=== PATIENT | male | born 1955 | race American Indian/Alaskan Native ===

== ENCOUNTER 2017-08-02 20:39 | Inpatient (IN) | payer OTHER ==
[2017-08-02] MEDS ORDERED: CATAPRES PO ONE (21:31)
--- NOTE | 2017-08-02 21:35 | Emergency Department Report ---
ED General Adult HPI - General Chief complaint: Nausea/Vomiting/Diarrhea Stated complaint: GENERAL WEAKNESS Time Seen by Provider: 08/02/17 20:53 Source: patient, EMS Mode of arrival: Stretcher Limitations: No Limitations - History of Present Illness Initial comments: 61-year-old male with a past medical history CHF, chronic venous stasis ulcers, and hypertension presents to the hospital for unknown reason. Patient is a very poor historian. Stating he does not know why he is here stating that someone from the home he stays in (?senior living). Patient states that all he knows is that he has high blood pressure and everything else should be in his record here. Patient does not have any previous medical record presents with discharge paperwork from [facility] dated 06-29 to 07-02 admitted with diagnosis of cellulitis, venous stasis ulcer,and systolic heart failure. Patient denies any physical complaints at this time. He is alert and oriented 3. I called the number on the pt's envelope at [phone] and this was the beamster of the senior living and states that he called ems. At first he was frustrated that I could not get all the information from EMS but then I explained that normally the patient can fill in the blanks as to why he is here that this patient cannot. Then he was able to say that the patient has been in a senior living for 3 weeks. Not eating for the last days and had an episode of vomiting. He is short of breath with irregular breathing with increased work of breathing while climbing stairs and today he has several episodes of loose stools. Pt goes to [facility] once a week for dressing changes - Related Data Allergies Allergy/AdvReac Type Severity Reaction Status Date / Time No Known Allergies Allergy Verified 08/02/17 22:50 ED Review of Systems ROS: Stated complaint: GENERAL WEAKNESS Other details as noted in HPI Comment: All other systems reviewed and negative ED Past Medical Hx - Past Medical History Hx Hypertension: Yes Hx Congestive Heart Failure: Yes (systolic ) Additional medical history: hx of b/l leg cellulitis, b/l chronic venous stasis ulcers - Social History Smoking Status: Never Smoker Substance Use Type: None ED Physical Exam - General Limitations: No Limitations - Other Other exam information: General: No limitations, patient is alert in no acute distress Head exam: Atraumatic, normocephalic Eyes exam: , pupils equal reactive to light ENT: Moist mucous membrane, normal oropharynx Neck exam: Normal inspection, full range of motion, no meningismus nontender Respiratory exam: mild crackles with diminished breath sounds right base Cardiovascular: Normal rate and rhythm, normal heart sounds Abdomen: Soft, nondistended, and nontender, with normal bowel sounds, no rebound, or guarding Extremity: Full range of motion, b/l lower extremity dressings Back: Normal Inspection, full range of motion, no tenderness Neurologic: Alert, oriented x3, cranial nerves intact, no motor or sensory deficit Psychiatric: normal affect, normal mood ED Course Vital Signs 08/02/17 08/02/17 21:10 22:04 Pulse Rate 96 H 90 Respiratory 28 H Rate Blood Pressure 176/120 170/120 O2 Sat by Pulse 95 Oximetry ED Medical Decision Making - Lab Data Result diagrams: 08/02/17 21:19 08/02/17 21:19 Lab Results 08/02/17 08/02/17 08/02/17 Range/Units 21:19 21:19 21:19 WBC 7.0 (4.5-11.0) K/mm3 RBC 4.49 (3.65-5.03) M/mm3 Hgb 12.5 (11.8-15.2) gm/dl Hct 40.1 (35.5-45.6) % MCV 89 (84-94) fl MCH 28 (28-32) pg MCHC 31 L (32-34) % RDW 22.2 H (13.2-15.2) % Plt Count 112 L (140-440) K/mm3 Lymph % (Auto) 12.3 L (13.4-35.0) % [place] % (Auto) 11.7 H (0.0-7.3) % Eos % (Auto) 0.3 (0.0-4.3) % Baso % (Auto) 0.3 (0.0-1.8) % Lymph # 0.9 L (1.2-5.4) K/mm3 [place] # 0.8 (0.0-0.8) K/mm3 Eos # 0.0 (0.0-0.4) K/mm3 Baso # 0.0 (0.0-0.1) K/mm3 Seg Neutrophils % 75.4 H (40.0-70.0) % Seg Neutrophils # 5.3 (1.8-7.7) K/mm3 PT (12.2-14.9) Sec. INR (0.87-1.13) Sodium 138 (137-145) mmol/L Potassium 4.5 (3.6-5.0) mmol/L Chloride 101.6 (98-107) mmol/L Carbon Dioxide 17 L (22-30) mmol/L Anion Gap 24 mmol/L BUN 59 H (9-20) mg/dL Creatinine 1.9 H (0.8-1.5) mg/dL Estimated GFR 44 ml/min BUN/Creatinine Ratio 31 % Glucose 94 (75-100) mg/dL Calcium 8.4 (8.4-10.2) mg/dL Total Bilirubin 3.40 H (0.1-1.2) mg/dL AST 92 H (5-40) units/L ALT 108 H (7-56) units/L Alkaline Phosphatase 648 H (35-129) units/L Total Creatine Kinase 132 (55-170) units/L CK-MB (CK-2) 3.0 (0.0-4.0) ng/mL CK-MB (CK-2) Rel Index 2.2 (0-4) Troponin T 0.025 (0.00-0.029) ng/mL NT-Pro-B Natriuret Pep 91111 H (0-900) pg/mL Total Protein 6.8 (6.3-8.2) g/dL Albumin 3.3 L (3.9-5) g/dL Albumin/Globulin Ratio 0.9 % 08/02/ Range/Units 21:19 WBC (4.5-11.0) K/mm3 RBC (3.65-5.03) M/mm3 Hgb (11.8-15.2) gm/dl Hct (35.5-45.6) % MCV (84-94) fl MCH (28-32) pg MCHC (32-34) % RDW (13.2-15.2) % Plt Count (140-440) K/mm3 Lymph % (Auto) (13.4-35.0) % [place] % (Auto) (0.0-7.3) % Eos % (Auto) (0.0-4.3) % Baso % (Auto) (0.0-1.8) % Lymph # (1.2-5.4) K/mm3 [place] # (0.0-0.8) K/mm3 Eos # (0.0-0.4) K/mm3 Baso # (0.0-0.1) K/mm3 Seg Neutrophils % (40.0-70.0) % Seg Neutrophils # (1.8-7.7) K/mm3 PT 29.7 H (12.2-14.9) Sec. INR 2.61 H (0.87-1.13) Sodium (137-145) mmol/L Potassium (3.6-5.0) mmol/L Chloride (98-107) mmol/L Carbon Dioxide (22-30) mmol/L Anion Gap mmol/L BUN (9-20) mg/dL Creatinine (0.8-1.5) mg/dL Estimated GFR ml/min BUN/Creatinine Ratio % Glucose (75-100) mg/dL Calcium (8.4-10.2) mg/dL Total Bilirubin (0.1-1.2) mg/dL AST (5-40) units/L ALT (7-56) units/L Alkaline Phosphatase (35-129) units/L Total Creatine Kinase (55-170) units/L CK-MB (CK-2) (0.0-4.0) ng/mL CK-MB (CK-2) Rel Index (0-4) Troponin T (0.00-0.029) ng/mL NT-Pro-B Natriuret Pep (0-900) pg/mL Total Protein (6.3-8.2) g/dL Albumin (3.9-5) g/dL Albumin/Globulin Ratio % - EKG Data -: EKG Interpreted by Me (atrial prmature complex, anteroseptal infarct, ) EKG shows normal: sinus rhythm Rate: normal - Radiology Data Radiology results: report reviewed EXAM: XR CHEST 1V AP HISTORY: sob TECHNIQUE: Chest portable upright PRIORS: None. FINDINGS: There is focal area of increased density within the right lower lobe along with blunting of the costophrenic angle suspicious for infiltrate. Cardiac and mediastinal contours are within normal limits for technique. Pulmonary vasculature is unremarkable. No left effusion identified. IMPRESSION: Right lower lobe infiltrate with small effusion suspect pneumonia. Recommend continued followup to document resolution - Medical Decision Making Patient has dyspnea on exertion as reported by senior living Right lower lobe infiltrate versus fluid identified Blood cultures ordered. Patient recovered with Rocephin and azithromycin Elevated BNP noted as well as elevated BUN and creatinine. Previous unavailable for comparison Labs suggestive of the liver disease with coagulopathy. I do not have a accurate med list for the patient at this time to confirm whether or not he is on anticoagulants. Pt has multiple medical problems and cannot provide any reliable history and typically goes to [facility] for his treatment. Patient will be admitted to the hospital for further treatment and evaluation. clonidine was given for elevated bp - Differential Diagnosis CHF, enteritis, dehydration, Critical Care Time: No Critical care attestation.: If time is entered above; I have spent that time in minutes in the direct care of this critically ill patient, excluding procedure time. ED Disposition Clinical Impression: Acute diarrhea, STEIN (dyspnea on exertion), Decreased oral intake, Renal insufficiency, Elevated LFTs, Thrombocytopenia, Elevated INR, Hx of congestive heart failure Disposition: DC- TO HOME OR SELFCARE Is pt being admited?: No Does the pt Need Aspirin: No Condition: Stable Time of Disposition: 22:53 (Dr Kamara/hosp)
[2017-08-02 21:56] LABS: Basophils % (Auto) 0.3 % (0.0-1.8); Eosinophils % (Auto) 0.3 % (0.0-4.3); Hematocrit 40.1 % (35.5-45.6); Hemoglobin 12.5 gm/dl (11.8-15.2); Lymphocytes # (Auto) 0.9 K/mm3 (1.2-5.4); Lymphocytes % (Auto) 12.3 % (13.4-35.0); Mean Corpuscular HGB Conc 31 % (32-34); Mean Corpuscular Hemoglobin 28 pg (28-32); Mean Corpuscular Volume 89 fl (84-94); Monocytes # (Auto) 0.8 K/mm3 (0.0-0.8); Monocytes % (Auto) 11.7 % (0.0-7.3); Platelet Count 112 K/mm3 (140-440); Red Blood Count 4.49 M/mm3 (3.65-5.03)
[2017-08-02 21:57] LABS: Red Cell Distribution Width 22.2 % (13.2-15.2)
[2017-08-02 22:06] LABS: INR 2.61 (0.87-1.13)
[2017-08-02 22:13] LABS: Albumin 3.3 g/dL (3.9-5); Calcium 8.4 mg/dL (8.4-10.2)
--- NOTE | 2017-08-02 22:31 | XRay Report ---
FINAL REPORT EXAM: XR CHEST 1V AP HISTORY: sob TECHNIQUE: Chest portable upright PRIORS: None. FINDINGS: There is focal area of increased density within the right lower lobe along with blunting of the costophrenic angle suspicious for infiltrate. Cardiac and mediastinal contours are within normal limits for technique. Pulmonary vasculature is unremarkable. No left effusion identified. IMPRESSION: Right lower lobe infiltrate with small effusion suspect pneumonia. Recommend continued followup to document resolution
[2017-08-02] MEDS ORDERED: ZITHROMAX 500 MG in NACL 0.9% 250ML 250 ML IV ONE (22:46)
[2017-08-02] MEDS ORDERED: ROCEPHIN/NS 1 GM/50 ML 1 GM/50 ML BAG IV ONE (22:46)
[2017-08-02] MEDS ORDERED: cefTRIAXone 1 GM in NACL 0.9% 20 ML IV ONE (22:46)
[2017-08-02] MEDS ORDERED: TYLENOL PO PRN (23:42)
[2017-08-03] MEDS ORDERED: NACL 0.9% 500 ML 500 ML IV ONE (00:40)
[2017-08-03 06:21] LABS: Creatine Kinase MB 3.1 ng/mL (0.0-4.0)
[2017-08-03 06:32] LABS: Calcium 8.7 mg/dL (8.4-10.2)
--- NOTE | 2017-08-03 08:41 | History and Physical Report ---
CHIEF COMPLAINT: Generalized weakness. Other complaint includes nausea, vomiting and diarrhea. HISTORY OF PRESENT ILLNESS: The patient is a 61-year-old male brought from a fdc and does not know why he came to the hospital. The patient is a poor historian and said that the only thing he knows is that he has had blood pressure, but does not know why they brought him to the Emergency Room. He felt that somebody from the fdc recommended that he be brought to the Emergency Room. He denied history of fever. Denied history of chills. Denied history of chest pain and also denied history of shortness of breath. PAST MEDICAL HISTORY: Pertinent for hypertension. Also, the patient has past history of congestive heart failure and bilateral leg cellulitis and bilateral chronic venous stasis ulcer. PAST SURGICAL HISTORY: Unremarkable. FAMILY HISTORY: Noncontributory. SOCIAL HISTORY: The patient stays at a fdc, does not smoke, does not drink alcohol and does not use illicit drugs. MEDICATIONS: The patient's home medications are not known. ALLERGIES: There are no known drug allergies. REVIEW OF SYSTEMS: CONSTITUTIONAL: There is no fever, no chills, no diaphoresis. HEENT: There is no headache or sore throat. CARDIOVASCULAR: There is no chest pain or orthopnea. RESPIRATORY: There is no shortness of breath or cough. GASTROINTESTINAL: There is no nausea, vomiting, and diarrhea with no abdominal pain. NEUROLOGICAL: There is no numbness, no dizziness, but there is generalized weakness and no change in mental status. MUSCULOSKELETAL: There is no joint pain or swelling. DERMATOLOGICAL: Chronic leg ulcer. There is no itching. GENITOURINARY: There is no dysuria, hematuria, or flank pain. Rest of system review is normal. PHYSICAL EXAMINATION: GENERAL: At the time of exam, the patient was found to be alert, oriented to place and not in acute distress. VITAL SIGNS: Shows temperature of 97.9 degrees Fahrenheit, pulse of 96, respirations of 28, blood pressure 176/120, and O2 sat of 95% on room air. HEENT: Shows pupils to be equal, round, reactive to light and accommodative. Extraocular muscles are intact. NECK: Supple with no JVD or carotid bruit. CARDIOVASCULAR: Showed normal first and second heart sounds with no gallops or murmur. RESPIRATORY: Show good air entry on both sides of the lungs with no abnormal breath. GASTROINTESTINAL: Show abdomen to be full, soft, nontender with no organomegaly or rigidity. NEUROLOGIC: Shows no focal deficit. MUSCULOSKELETAL: Shows no joint swelling or tenderness. DERMATOLOGICAL: Showed ulceration in both legs, more on the left leg than the right with a big ulcer in the left leg. GENITOURINARY: Show no costovertebral angle tenderness. PERTINENT LABORATORY DATA AND IMAGING STUDIES: The patient had chest x-ray done that shows right lower lobe infiltrate with small effusion and the radiologist says there is suspicion for pneumonia. The patient's lab results shows CBC with normal white count, normal hemoglobin, normal hematocrit with CBC differential showing elevated monocyte count of 11.7% and elevated segmented neutrophil count of 75.4%. With coagulation studies showing elevated INR of 2.6 with high PT 29.7. The patient's BUN is high with a value of 59, with high creatinine of 1.9. The patient's total bilirubin level is high with a value of 3.4 and AST level is high with a value of 92, with high ALT of 109 and high alkaline phosphatase of 648. Brain natriuretic peptide level is high with a value of 29,480 and albumin level is low with a value of 3.3. DIAGNOSES: 1. Right lower lobe pneumonia. 2. Acute renal failure. 3. Congestive heart failure with chronic leg ulcer. PLAN: 1. The patient will be admitted to the medical floor and will be on IV ceftriaxone 1 g daily. Also, the patient will be on IV Zithromax 500 mg daily. 2. Complete echocardiogram done this morning. 3. The patient will have Wound Care nurse consult to manage chronic leg ulcer. 4. The patient will have a Nephrology consult with Dr. Júnior Garcia for management of acute kidney injury. 5. The patient will be on p.r.n. conditions like Tylenol 650 mg by mouth every 4 hours for fever and headache and will be on heparin 5000 units subQ q. 12 hours for deep venous thrombosis prophylaxis. 6. The patient will have cardiac enzymes involving troponin, total CK and CK-MB checked q. 6 hours x 2 more levels. 7. The patient's home medications will be reconciled and started accordingly. JOB# [id number] OCN/NTS
[2017-08-03] MEDS: HEPARIN SUB-Q SCH ×2 (09:08→21:21)
[2017-08-03] MEDS ORDERED: ROCEPHIN/NS 1 GM/50 ML 1 GM/50 ML BAG IV SCH (10:00)
--- NOTE | 2017-08-03 10:15 | Progress Note ---
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 Noted to have bilateral lower extremity ulceration. Generalized weakness Elevated LFT Pneumonia POA- on xray Persistent Nausea and vomiting x 2 days with no PO intake per EMS note Wound left leg with ulcer HTN urgency likely due to no PO intake Diarrhea eval for C.DIFF-poa HUSSEIN/CKD CHF Secondary coagulopathy Hyperkalemia Plan * Continue current antibiotics. * wound care consult. * Obtain records from [facility]. * Nephrology has been consulted await further input from them. * Adjust blood pressure medication * Awaiting echocardiogram preliminary report obtained this revealing possible left ventricular mass cardiology consulted * No family present at this time also with her records from the halfway * DVT and GI prophylaxis History Interval history: Patient seen and examined this morning very poor clinical insight. Still complains of abdominal pain although denies diarrhea review of ER note indicates that the patient has been having diarrhea and poor by mouth intake for the past 2 days. Abdominal pain who is very attentive intensity and denies any chest pain nausea vomiting and denies any shortness of breath. Hospitalist Physical - Physical exam Narrative exam: VITAL SIGNS: Reviewed. GENERAL: The patient appeared disheveled otherwise no acute distress. Vital signs as documented. HEAD: No signs of head trauma. EYES: Pupils are equal. Extraocular motions intact. EARS: Hearing grossly intact. MOUTH: Oropharynx is normal. NECK: No adenopathy, no JVD. CHEST: Chest with clear breath sounds bilaterally. No wheezes, rales, or rhonchi. CARDIAC: Regular rate and rhythm. S1 and S2, without murmurs, gallops, or rubs. VASCULAR: No Edema. Peripheral pulses normal and equal in all extremities. ABDOMEN: Soft, without detectable tenderness. No sign of distention. No rebound or guarding, and no masses palpated. Bowel Sounds normal. MUSCULOSKELETAL: Good range of motion of all major joints. Extremities without clubbing, cyanosis or edema. NEUROLOGIC EXAM: Alert and oriented x 3. No focal sensory or strength deficits. Speech normal. Follows commands. PSYCHIATRIC: Mood normal. SKIN: Bilateral lower extremity ulceration left greater than right with mild tenderness no weeping noted. - Constitutional Vitals: Temp Pulse Resp BP Pulse Ox 97.9 F 93 H 20 143/105 99 08/03/17 07:29 08/03/17 09:21 08/03/17 09:21 08/03/17 07:29 08/03/17 09:21 Results - Labs CBC & Chem 7: 08/04/17 06:01 08/03/17 04:54 Labs: Laboratory Last Values WBC 7.0 K/mm3 (4.5-11.0) 08/02/17 21:19 RBC 4.49 M/mm3 (3.65-5.03) 08/02/17 21:19 Hgb 12.5 gm/dl (11.8-15.2) 08/02/17 21: Hct 40.1 % (35.5-45.6) 08/02/17 21: MCV 89 fl (84-94) 08/02/17 21: MCH 28 pg (28-32) 08/02/17 21: MCHC 31 % (32-34) L 08/02/17 21:19 RDW 22.2 % (13.2-15.2) H 08/02/17 21:19 Plt Count 112 K/mm3 (140-440) L 08/02/17 21:19 Lymph % (Auto) 12.3 % (13.4-35.0) L 08/02/17 21:19 [place] % (Auto) 11.7 % (0.0-7.3) H 08/02/17 21:19 Eos % (Auto) 0.3 % (0.0-4.3) 08/02/17 21:19 Baso % (Auto) 0.3 % (0.0-1.8) 08/02/17 21:19 Lymph # 0.9 K/mm3 (1.2-5.4) L 08/02/17 21:19 [place] # 0.8 K/mm3 (0.0-0.8) 08/02/17 21:19 Eos # 0.0 K/mm3 (0.0-0.4) 08/02/17 21:19 Baso # 0.0 K/mm3 (0.0-0.1) 08/02/17 21:19 Seg Neutrophils % 75.4 % (40.0-70.0) H 08/02/17 21:19 Seg Neutrophils # 5.3 K/mm3 (1.8-7.7) 08/02/17 21:19 PT 29.7 Sec. (12.2-14.9) H 08/02/17 21:19 INR 2.61 (0.87-1.13) H 08/02/17 21:19 Sodium 140 mmol/L (137-145) 08/03/17 04:54 Potassium 5.7 mmol/L (3.6-5.0) H D 08/03/17 04:54 Chloride 101.1 mmol/L (98-107) 08/03/17 04:54 Carbon Dioxide 14 mmol/L (22-30) L 08/03/17 04:54 Anion Gap 31 mmol/L 08/03/17 04:54 BUN 63 mg/dL (9-20) H 08/03/17 04:54 Creatinine 1.9 mg/dL (0.8-1.5) H 08/03/17 04:54 Estimated GFR 44 ml/min 08/03/17 04:54 BUN/Creatinine Ratio 33 % 08/03/17 04:54 Glucose 103 mg/dL (75-100) H 08/03/17 04:54 Calcium 8.7 mg/dL (8.4-10.2) 08/03/17 04:54 Total Bilirubin 3.40 mg/dL (0.1-1.2) H 08/02/17 21:19 AST 92 units/L (5-40) H 08/02/17 21:19 ALT 108 units/L (7-56) H 08/02/17 21:19 Alkaline Phosphatase 648 units/L (35-129) H 08/02/17 21:19 Total Creatine Kinase 126 units/L (55-170) 08/03/17 04:54 CK-MB (CK-2) 3.1 ng/mL (0.0-4.0) 08/03/17 04:54 CK-MB (CK-2) Rel Index 2.4 (0-4) 08/03/17 04:54 Troponin T 0.020 ng/mL (0.00-0.029) 08/03/17 04:54 NT-Pro-B Natriuret Pep 08499 pg/mL (0-900) H 08/02/17 21:19 Total Protein 6.8 g/dL (6.3-8.2) 08/02/17 21:19 Albumin 3.3 g/dL (3.9-5) L 08/02/17 21:19 Albumin/Globulin Ratio 0.9 % 08/02/17 21:19 - Imaging and Cardiology Chest x-ray: image reviewed (right lower lobe infiltrate)
[2017-08-03 10:57] LABS: Bilirubin,Direct 1.4 mg/dL (0-0.2)
--- NOTE | 2017-08-03 15:40 | Consultation ---
History of Present Illness Consult date: 08/03/17 Requesting physician: STEVEN FLANAGAN Consult reason: congestive heart failure History of present illness: The patient is a 61 year old male with a history of chronic systolic heart failure, hypertension, hyperlipidemia, chronic venous status ulcers who presented to the ER for evaluation of shortness of breath that started yesterday morning. He denies any chest pain or palpitations. The patient is a very poor historian and unable to provide any additional details at this time. According to ER documentation, he lives in a f[facility] and the apartment rental agent of the fci called EMS as the patient had not been eating well for the past several days and had one episode of vomiting and several episodes of loose stools. He also had increased work of breathing while climbing stairs yesterday. Apparently he goes to the [place] [facility] wound care clinic once a week for dressing changes of his lower legs. Troponin negative x 2. BNP 61122. LFTs and bilirubin elevated. INR 2.61. Platelets 112. BUN 59 with a creatinine of 1.9. Past History Past Medical History: heart failure, hypertension, other (chronic venous statis ulcers) Past Surgical History: appendectomy Social history: full code, other (lives in a fci). denies: smoking, alcohol abuse, prescription drug abuse, IV drug use Family history: other (unable to obtain ) Medications and Allergies Allergies Allergy/AdvReac Type Severity Reaction Status Date / Time No Known Allergies Allergy Verified 08/02/17 22:50 Home Medications Medication Instructions Recorded Confirmed Last Taken Type Unobtainable 08/03/17 08/03/17 Unknown History Active Meds: Active Medications Acetaminophen (Tylenol) 650 mg PO Q4H PRN PRN Reason: Fever >101 Heparin Sodium (Porcine) (Heparin) 5,000 unit SUB-Q Q12HR [facility] Last Admin: 08/03/17 09:08 Dose: 5,000 unit Azithromycin 500 mg/ Sodium (Chloride) 250 mls @ 250 mls/hr IV Q24HR@2200 [facility] Ceftriaxone Sodium 1 gm/ (Sodium Chloride) 20 mls @ 2 mls/min IV Q24HR@2200 [facility] Review of Systems Constitutional: no fever, no chills Ears, nose, mouth and throat: no nasal congestion, no nasal discharge, no sinus pressure Cardiovascular: shortness of breath, dyspnea on exertion, no chest pain, no palpitations Respiratory: shortness of breath, dyspnea on exertion, no cough, no congestion, no wheezing Gastrointestinal: nausea, vomiting, diarrhea Genitourinary Male: no dysuria, no hematuria Musculoskeletal: no neck stiffness, no neck pain, no myalgias Integumentary: wounds (bilateral lower legs), no rash Neurological: no parathesias, no numbness, no tingling Endocrine: no cold intolerance, no heat intolerance Hematologic/Lymphatic: no easy bruising, no easy bleeding Allergic/Immunologic: no urticaria, no wheezing Physical Examination Vital Signs Pulse Resp BP Pulse Ox 96 H 28 H 176/120 95 08/02/17 21:10 08/02/17 21:10 08/02/17 21:10 08/02/17 21:10 General appearance: no acute distress HEENT: Positive: Normocephaly, Mucus Membranes Moist Neck: Positive: neck supple, trachea midline Cardiac: Positive: Reg Rate and Rhythm, S1/S2 Lungs: Positive: Decreased Breath Sounds Neuro: Positive: Grossly Intact Abdomen: Positive: Soft, Active Bowel Sounds. Negative: Tender Skin: Positive: Other (bilateral lower leg wounds-dressings intact). Negative: Rash Extremities: Absent: edema Results 08/02/17 21:19 08/03/17 04:54 Cardiac Enzymes 08/02/17 08/02/17 08/03/17 Range/Units 21:19 21:19 04:54 AST 92 H (5-40) units/L CK-MB (CK-2) 3.0 3.1 (0.0-4.0) ng/mL 08/03/17 Range/Units 04:54 AST 98 H (5-40) units/L CK-MB (CK-2) (0.0-4.0) ng/mL Coagulation 08/02/17 Range/Units 21:19 PT 29.7 H (12.2-14.9) Sec. INR 2.61 H (0.87-1.13) CBC 08/02/17 Range/Units 21:19 WBC 7.0 (4.5-11.0) K/mm3 RBC 4.49 (3.65-5.03) M/mm3 Hgb 12.5 (11.8-15.2) gm/dl Hct 40.1 (35.5-45.6) % Plt Count 112 L (140-440) K/mm3 Lymph # 0.9 L (1.2-5.4) K/mm3 [place] # 0.8 (0.0-0.8) K/mm3 Eos # 0.0 (0.0-0.4) K/mm3 Baso # 0.0 (0.0-0.1) K/mm3 Comprehensive Metabolic Panel 08/02/17 08/03/17 08/03/17 Range/Units 21:19 04:54 04:54 Sodium 138 140 (137-145) mmol/L Potassium 4.5 5.7 H D (3.6-5.0) mmol/L Chloride 101.6 101.1 (98-107) mmol/L Carbon Dioxide 17 L 14 L (22-30) mmol/L BUN 59 H 63 H (9-20) mg/dL Creatinine 1.9 H 1.9 H (0.8-1.5) mg/dL Glucose 94 103 H (75-100) mg/dL Calcium 8.4 8.7 (8.4-10.2) mg/dL Direct Bilirubin 1.4 H (0-0.2) mg/dL Indirect Bilirubin 1.5 mg/dL AST 92 H 98 H (5-40) units/L ALT 108 H 105 H (7-56) units/L Alkaline Phosphatase 648 H 591 H (35-129) units/L Total Protein 6.8 7.0 (6.3-8.2) g/dL Albumin 3.3 L 3.0 L (3.9-5) g/dL - Imaging and Cardiology Echo: pending EKG: image reviewed EKG interpretations - Telemetry EKG Rhythm: Sinus Rhythm - EKG Sinus rhythms and dysrhythmias: sinus rhythm QRS axis and voltage: right axis deviation Myocardial infarction: septal [place] (old age or ind, anterior [place] (old age or i Assessment and Plan Assessment/Plan: Acute on chronic HFrEF Initiate coreg 3.125mg BID Await echo findings ?Pneumonia Antibiotics per primary Renal insufficiency/?CKD Transaminitis Thrombocytopenia Hypertension Hyperlipidemia Chronic venous statis ulcers The patient has been seen in conjunction with Dr. Hidalgo who agrees with the assessment and plan of care.
--- NOTE | 2017-08-03 19:01 | Progress Note ---
Assessment and Plan Assessment and plan: Generalized weakness Elevated LFT Pneumonia POA- on xray Persistent Nausea and vomiting x 2 days with no PO intake per EMS note Wound left leg with ulcer HTN urgency likely due to no PO intake Diarrhea eval for C.DIFF-poa HUSSEIN/CKD CHF Secondary coagulopathy Hyperkalemia (1) Other acute kidney failure Current Visit: Yes Status: Acute Plan to address problem: Pre-renal azotemia secondary to volume depletion possibly superimposed on chronic kidney disease secondary to hypertensive nephrosclerosis and chronic cardiorenal syndrome. Get urine studies. Follow-up kidney ultrasound. Follow- up electrolytes and renal function (2) Hypertensive chronic kidney disease with stage 1 through stage 4 chronic kidney disease, or unspecified chronic kidney disease Current Visit: Yes Status: Acute Plan to address problem: Follow-up blood pressure and adjust medications as indicated (3) Chronic systolic (congestive) heart failure Current Visit: Yes Status: Acute Plan to address problem: Patient is not in acute exacerbation. Needs close monitoring (4) Hyperkalemia Current Visit: Yes Status: Acute Plan to address problem: Treat hyperkalemia medically and follow up (5) Pneumonia involving right lung Current Visit: Yes Status: Acute Plan to address problem: I agree with antibiotics. Follow-up cultures. Hospitalist Physical - Constitutional Vitals: Temp Pulse Resp BP Pulse Ox 98.1 F 95 H 20 113/75 100 08/03/17 11:36 08/03/17 11:36 08/03/17 11:36 08/03/17 11:36 08/03/17 11:36 General appearance: Present: no acute distress Results - Labs CBC & Chem 7: 08/04/17 06:01 08/03/17 04:54 Labs: Laboratory Last Values WBC 7.0 K/mm3 (4.5-11.0) 08/02/17 21: RBC 4.49 M/mm3 (3.65-5.03) 08/02/17 21:19 Hgb 12.5 gm/dl (11.8-15.2) 08/02/17 21:19 Hct 40.1 % (35.5-45.6) 08/02/17 21:19 MCV 89 fl (84-94) 08/02/17 21: MCH 28 pg (28-32) 08/02/17 21: MCHC 31 % (32-34) L 08/02/17 21:19 RDW 22.2 % (13.2-15.2) H 08/02/17 21:19 Plt Count 112 K/mm3 (140-440) L 08/02/17 21:19 Lymph % (Auto) 12.3 % (13.4-35.0) L 08/02/17 21:19 [place] % (Auto) 11.7 % (0.0-7.3) H 08/02/17 21:19 Eos % (Auto) 0.3 % (0.0-4.3) 08/02/17 21:19 Baso % (Auto) 0.3 % (0.0-1.8) 08/02/17 21:19 Lymph # 0.9 K/mm3 (1.2-5.4) L 08/02/17 21:19 [place] # 0.8 K/mm3 (0.0-0.8) 08/02/17 21:19 Eos # 0.0 K/mm3 (0.0-0.4) 08/02/17 21:19 Baso # 0.0 K/mm3 (0.0-0.1) 08/02/17 21:19 Seg Neutrophils % 75.4 % (40.0-70.0) H 08/02/17 21:19 Seg Neutrophils # 5.3 K/mm3 (1.8-7.7) 08/02/17 21:19 PT 29.7 Sec. (12.2-14.9) H 08/02/17 21:19 INR 2.61 (0.87-1.13) H 08/02/17 21:19 Sodium 140 mmol/L (137-145) 08/03/17 04:54 Potassium 5.7 mmol/L (3.6-5.0) H D 08/03/17 04:54 Chloride 101.1 mmol/L (98-107) 08/03/17 04:54 Carbon Dioxide 14 mmol/L (22-30) L 08/03/17 04:54 Anion Gap 31 mmol/L 08/03/17 04:54 BUN 63 mg/dL (9-20) H 08/03/17 04:54 Creatinine 1.9 mg/dL (0.8-1.5) H 08/03/17 04:54 Estimated GFR 44 ml/min 08/03/17 04:54 BUN/Creatinine Ratio 33 % 08/03/17 04:54 Glucose 103 mg/dL (75-100) H 08/03/17 04:54 Calcium 8.7 mg/dL (8.4-10.2) 08/03/17 04:54 Total Bilirubin 2.90 mg/dL (0.1-1.2) H 08/03/17 04:54 Direct Bilirubin 1.4 mg/dL (0-0.2) H 08/03/17 04:54 Indirect Bilirubin 1.5 mg/dL 08/03/17 04:54 AST 98 units/L (5-40) H 08/03/17 04:54 ALT 105 units/L (7-56) H 08/03/17 04:54 Alkaline Phosphatase 591 units/L (35-129) H 08/03/17 04:54 Total Creatine Kinase 126 units/L (55-170) 08/03/17 04:54 CK-MB (CK-2) 3.1 ng/mL (0.0-4.0) 08/03/17 04:54 CK-MB (CK-2) Rel Index 2.4 (0-4) 08/03/17 04:54 Troponin T 0.020 ng/mL (0.00-0.029) 08/03/17 04:54 NT-Pro-B Natriuret Pep 47874 pg/mL (0-900) H 08/02/17 21:19 Total Protein 7.0 g/dL (6.3-8.2) 08/03/17 04:54 Albumin 3.0 g/dL (3.9-5) L 08/03/17 04:54 Albumin/Globulin Ratio 0.8 % 08/03/17 04:54
[2017-08-03] MEDS ORDERED: KIONEX PO ONE (20:00)
--- NOTE | 2017-08-03 20:38 | Consultation ---
History of Present Illness - Reason for Consult Consult date: 08/03/17 acute renal failure Requesting physician: SHEELA LATIF - History of Present Illness 61-year-old male referred from prison because he has not been eating for a few days and was becoming weaker. Patient has a history of hypertension and congestive heart failure. He used to get his medical care at [facility]. He is now residing at a prison for the last 3 weeks. He had not been eating for the last few days. Patient saysI was at home and feeling weak and they called the ambulance and they carried me here. Apparently the world renowned chef and restaurant owner of the prison called the ambulance. Patient is a poor history and is not able to give a history. In the ER blood pressure was as high as 169/129 mmHg. Labs reviewed and BUN/creatinine were 59 and 1.9 and potassium high at 5.7 mmol per liter. I am consulted to assist with managing these problems. There is no record of patient being on any nonsteroidals anti-inflammatory drugs. Has not been exposed to radiocontrast. Past History Past Medical History: heart failure, hypertension, other (chronic venous statis ulcers) Past Surgical History: appendectomy Social history: full code, other (lives in a prison. Walked at a [employer] plant in the past.). denies: smoking, alcohol abuse, prescription drug abuse, IV drug use Family history: other (does not know the cause of of his father. Mother of complications of hypertension. He has 2 brothers and 2 sisters alive and one sister of heart disease. Does not know about medical problems in his 4 living siblings) Medications and Allergies Allergies Allergy/AdvReac Type Severity Reaction Status Date / Time No Known Allergies Allergy Verified 08/02/17 22:50 Home Medications Medication Instructions Recorded Confirmed Last Taken Type Unobtainable 08/03/17 08/03/17 Unknown History Active Meds: Active Medications Acetaminophen (Tylenol) 650 mg PO Q4H PRN PRN Reason: Fever >101 Carvedilol (Coreg) 3.125 mg PO BID SELINA Heparin Sodium (Porcine) (Heparin) 5,000 unit SUB-Q Q12HR SELINA Last Admin: 08/03/17 09:08 Dose: 5,000 unit Azithromycin 500 mg/ Sodium (Chloride) 250 mls @ 250 mls/hr IV Q24HR@2200 SELINA Ceftriaxone Sodium 1 gm/ (Sodium Chloride) 20 mls @ 2 mls/min IV Q24HR@2200 SELINA Review of Systems All systems: negative (Constitutional: no fever or chills. Appetite is poor and patient has lost weight. HEENT: No sore throat or sinus drainage no hearing or vision impairment . Cardiovascular: No chest pain, shortness of breath, palpitations, lower extremity swelling or dizziness. Respiratory: No cough, sputum, shortness of breath, hemoptysis or wheezing. Gastrointestinal: No nausea, vomiting, diarrhea, abdominal pain, hematemesis or melena. Genitourinary: No frequency urgency dysuria or hematuria. hematologic: He had some bleeding from the ulcers in his legs. No easy bruising. Integumentary: no pruritus or rash. Neurological: No headache no focal weakness or numbness, no syncope or seizures. Musculoskeletal: Admits to pain in his legs with stiffness. Psychiatry: no anxiety or depression) Exam - Vital Signs Vital signs: Vital Signs Pulse Resp BP Pulse Ox 96 H 28 H 176/120 95 08/02/17 21:10 08/02/17 21:10 08/02/17 21:10 08/02/17 21:10 - Physical Exam Narrative exam: Chronically ill-looking middle-aged -[place] male in no acute distress HEENT: NCAT, pink oral mucous membrane Neck: Supple, no venous distention CVS: S1S2 RRR with no murmur, rub or gallop Chest: Clear to auscultation Abdomen: Protuberant, soft, nontender, no organomegaly, bowel sounds are present Extremities: Significant muscle wasting, No edema, clean dressings in both legs Skin: Scaly with hyperpigmentation and lichenification in both legs and feet Neuro: Awake, alert no focal deficits Results - Lab Results 08/02/17 21:19 08/03/17 04:54 Most recent lab results Calcium 8.7 mg/dL (8.4-10.2) 08/03/17 04:54 Assessment and Plan - Patient Problems (1) Other acute kidney failure Current Visit: Yes Status: Acute Plan to address problem: Pre-renal azotemia secondary to volume depletion possibly superimposed on chronic kidney disease secondary to hypertensive nephrosclerosis and chronic cardiorenal syndrome. Get urine studies. Follow-up kidney ultrasound. Follow- up electrolytes and renal function (2) Hypertensive chronic kidney disease with stage 1 through stage 4 chronic kidney disease, or unspecified chronic kidney disease Current Visit: Yes Status: Acute Plan to address problem: Follow-up blood pressure and adjust medications as indicated (3) Chronic systolic (congestive) heart failure Current Visit: Yes Status: Acute Plan to address problem: Patient is not in acute exacerbation. Needs close monitoring (4) Hyperkalemia Current Visit: Yes Status: Acute Plan to address problem: Treat hyperkalemia medically and follow up (5) Pneumonia involving right lung Current Visit: Yes Status: Acute Plan to address problem: I agree with antibiotics. Follow-up cultures.
[2017-08-03] MEDS ORDERED: NACL 0.45% 1000 ML 1,000 ML with SODIUM BICARBONATE 75 MEQ IV SCH (21:00)
[2017-08-03] MEDS: COREG PO SCH (21:21)
[2017-08-03] MEDS: COZAAR PO SCH (21:22)
[2017-08-03] MEDS ORDERED: cefTRIAXone 1 GM in NACL 0.9% 20 ML IV SCH (22:00)
[2017-08-03] MEDS ORDERED: ZITHROMAX 500 MG in NACL 0.9% 250ML 250 ML IV SCH (22:00)
[2017-08-04 06:29] LABS: Hematocrit 39.3 % (35.5-45.6); Hemoglobin 12.3 gm/dl (11.8-15.2); Mean Corpuscular HGB Conc 31 % (32-34); Mean Corpuscular Hemoglobin 27 pg (28-32); Mean Corpuscular Volume 87 fl (84-94); Platelet Count 97 K/mm3 (140-440); Red Cell Distribution Width 22.1 % (13.2-15.2)
[2017-08-04 06:56] LABS: Albumin 2.9 g/dL (3.9-5); Calcium 8.1 mg/dL (8.4-10.2)
--- NOTE | 2017-08-04 09:09 | Progress Note ---
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 Noted to have bilateral lower extremity ulceration. Generalized weakness Elevated LFT Ventricular Mass Cardiomyopathy Pneumonia POA- on xray Persistent Nausea and vomiting x 2 days with no PO intake per EMS note Wound left leg with ulcer HTN urgency likely due to no PO intake Diarrhea eval for C.DIFF-poa HUSSEIN/CKD CHF Secondary coagulopathy Hyperkalemia-Resolved Plan * Continue current antibiotics. * Wound care consult. * Obtain records from [facility]. * Nephrology has been consulted await further input from them. * Adjust blood pressure medication * Awaiting echocardiogram preliminary report obtained this revealing possible left ventricular mass cardiology consulted * No family present at this time also with her records from the residential * DVT and GI prophylaxis Hospitalist Physical - Constitutional Vitals: Temp Pulse Resp BP Pulse Ox 97.6 F 88 19 130/100 100 08/04/17 07:29 08/04/17 07:29 08/04/17 07:29 08/04/17 07:29 08/04/17 07:29 General appearance: Present: no acute distress Results - Labs CBC & Chem 7: 08/04/17 06:01 08/04/17 06:01 Labs: Laboratory Last Values WBC 7.2 K/mm3 (4.5-11.0) 08/04/17 06:01 RBC 4.50 M/mm3 (3.65-5.03) 08/04/17 06:01 Hgb 12.3 gm/dl (11.8-15.2) 08/04/17 06:01 Hct 39.3 % (35.5-45.6) 08/04/17 06:01 MCV 87 fl (84-94) 08/04/17 06:01 MCH 27 pg (28-32) L 08/04/17 06:01 MCHC 31 % (32-34) L 08/04/17 06:01 RDW 22.1 % (13.2-15.2) H 08/04/17 06:01 Plt Count 97 K/mm3 (140-440) L 08/04/17 06:01 Lymph % (Auto) 12.3 % (13.4-35.0) L 08/02/17 21:19 [place] % (Auto) 11.7 % (0.0-7.3) H 08/02/17 21:19 Eos % (Auto) 0.3 % (0.0-4.3) 08/02/17 21:19 Baso % (Auto) 0.3 % (0.0-1.8) 08/02/17 21:19 Lymph # 0.9 K/mm3 (1.2-5.4) L 08/02/17 21:19 [place] # 0.8 K/mm3 (0.0-0.8) 08/02/17 21:19 Eos # 0.0 K/mm3 (0.0-0.4) 08/02/17 21:19 Baso # 0.0 K/mm3 (0.0-0.1) 08/02/17 21:19 Seg Neutrophils % 75.4 % (40.0-70.0) H 08/02/17 21:19 Seg Neutrophils # 5.3 K/mm3 (1.8-7.7) 08/02/17 21:19 PT 29.7 Sec. (12.2-14.9) H 08/02/17 21:19 INR 2.61 (0.87-1.13) H 08/02/17 21:19 Sodium 138 mmol/L (137-145) 08/04/17 06:01 Potassium 4.0 mmol/L (3.6-5.0) D 08/04/17 06:01 Chloride 102.3 mmol/L (98-107) 08/04/17 06:01 Carbon Dioxide 22 mmol/L (22-30) D 08/04/17 06:01 Anion Gap 18 mmol/L 08/04/17 06:01 BUN 53 mg/dL (9-20) H 08/04/17 06:01 Creatinine 1.6 mg/dL (0.8-1.5) H 08/04/17 06:01 Estimated GFR 54 ml/min 08/04/17 06:01 BUN/Creatinine Ratio 33 % 08/04/17 06:01 Glucose 83 mg/dL (75-100) 08/04/17 06:01 Calcium 8.1 mg/dL (8.4-10.2) L 08/04/17 06:01 Total Bilirubin 2.10 mg/dL (0.1-1.2) H 08/04/17 06:01 Direct Bilirubin 1.4 mg/dL (0-0.2) H 08/03/17 04:54 Indirect Bilirubin 1.5 mg/dL 08/03/17 04:54 AST 83 units/L (5-40) H 08/04/17 06:01 ALT 87 units/L (7-56) H 08/04/17 06:01 Alkaline Phosphatase 603 units/L (35-129) H 08/04/17 06:01 Total Creatine Kinase 126 units/L (55-170) 08/03/17 04:54 CK-MB (CK-2) 3.1 ng/mL (0.0-4.0) 08/03/17 04:54 CK-MB (CK-2) Rel Index 2.4 (0-4) 08/03/17 04:54 Troponin T 0.020 ng/mL (0.00-0.029) 08/03/17 04:54 NT-Pro-B Natriuret Pep 80518 pg/mL (0-900) H 08/02/17 21:19 Total Protein 6.4 g/dL (6.3-8.2) 08/04/17 06:01 Albumin 2.9 g/dL (3.9-5) L 08/04/17 06:01 Albumin/Globulin Ratio 0.8 % 08/04/17 06:01
--- NOTE | 2017-08-04 11:10 | Discharge Summary ---
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 Noted to have bilateral lower extremity ulceration. Generalized weakness Elevated LFT Ventricular Mass Cardiomyopathy Pneumonia POA- on xray Persistent Nausea and vomiting x 2 days with no PO intake per EMS note Wound left leg with ulcer HTN urgency likely due to no PO intake Diarrhea eval for C.DIFF-poa HUSSEIN/CKD CHF Secondary coagulopathy Hyperkalemia-Resolved Disposition: DC-01 TO HOME OR SELFCARE Time spent for discharge: 35 MINS Core Measure Documentation - Palliative Care Palliative Care/ Comfort Measures: Not Applicable - Core Measures Any of the following diagnoses?: none - VTE Discharge Requirements Deep Vein Thrombosis/Pulmonary Embolism Present on Admission: No Exam - Physical Exam Narrative exam: VITAL SIGNS: Reviewed. GENERAL: The patient appeared disheveled otherwise no acute distress. Vital signs as documented. HEAD: No signs of head trauma. EYES: Pupils are equal. Extraocular motions intact. EARS: Hearing grossly intact. MOUTH: Oropharynx is normal. NECK: No adenopathy, no JVD. CHEST: Chest with clear breath sounds bilaterally. No wheezes, rales, or rhonchi. CARDIAC: Regular rate and rhythm. S1 and S2, without murmurs, gallops, or rubs. VASCULAR: No Edema. Peripheral pulses normal and equal in all extremities. ABDOMEN: Soft, without detectable tenderness. No sign of distention. No rebound or guarding, and no masses palpated. Bowel Sounds normal. MUSCULOSKELETAL: Good range of motion of all major joints. Extremities without clubbing, cyanosis or edema. NEUROLOGIC EXAM: Alert and oriented x 3. No focal sensory or strength deficits. Speech normal. Follows commands. PSYCHIATRIC: Mood normal. SKIN: Bilateral lower extremity ulceration left greater than right with mild tenderness no weeping noted. - Constitutional Vitals: Temp Pulse Resp BP Pulse Ox 97.6 F 88 19 130/100 100 08/04/17 07:29 08/04/17 07:29 08/04/17 07:29 08/04/17 07:29 08/04/17 07:29 Plan Activity: advance as tolerated, fall precautions Diet: low cholesterol, low salt, renal Special Instructions: record daily BP diary, record blood sugar diary Follow up with: PRIMARY CAREMD [Primary Care Provider] - 7 Days SHILA ANDERSON MD [Staff Physician] - 7 Days CHRISTEL DAHL MD [Staff Physician] - 7 Days Prescriptions: Azithromycin [Zithromax TAB] 500 mg PO QHS #5 tablet Carvedilol [Coreg] 3.125 mg PO BID #30 tablet Losartan [Cozaar] 100 mg PO QDAY #30 tablet
[2017-08-04] MEDS: COREG PO SCH (11:18)
[2017-08-04] MEDS: COZAAR PO SCH (11:19)
[2017-08-04] MEDS: HEPARIN SUB-Q SCH (11:19)
--- NOTE | 2017-08-04 11:26 | Progress Note ---
Assessment and Plan Assessment/Plan: Acute on chronic HFrEF-->currently euvolemic Echo 07/2017: EF 15-20%, LV mass, RA mass, moderate MR, moderate TR Continue coreg 3.125mg BID, losartan 100mg daily LV mass: intramural mass on the lateral wall, 3.58 x 2.36cm, RA mass: 2.59 x 2.43cm attached to the free wall Await records from [place] INR 2.61 on admission (?auto anticoagulation) ?Pneumonia Antibiotics per primary Renal insufficiency/?CKD Transaminitis Thrombocytopenia Hypertension Hyperlipidemia Chronic venous statis ulcers The patient has been seen in conjunction with Dr. Hidalgo who agrees with the assessment and plan of care. Subjective Date of service: 08/04/17 Principal diagnosis: acute on chronic heart failure Interval history: The patient is resting in bed. No new complaints. Sinus rhythm on the monitor. Objective Last Vital Signs Temp 97.6 F 08/04/17 07:29 Pulse 88 08/04/17 07:29 Resp 19 08/04/17 07:29 BP 130/100 08/04/17 11:18 Pulse Ox 100 08/04/17 07:29 - Physical Examination General: No Apparent Distress HEENT: Positive: Normocephaly, Mucus Membranes Moist Neck: Positive: neck supple, trachea midline Cardiac: Positive: Reg Rate and Rhythm, S1/S2 Lungs: Positive: clear to auscultation Neuro: Positive: Grossly Intact Abdomen: Positive: Soft, Active Bowel Sounds. Negative: Tender Skin: Positive: Other (bilateral lower leg wounds-dressings intact). Negative: Rash Extremities: Absent: edema - Labs and Meds Cardiac Enzymes 08/03/17 08/04/17 Range/Units 04:54 06:01 AST 98 H 83 H (5-40) units/L CBC 08/04/17 Range/Units 06:01 WBC 7.2 (4.5-11.0) K/mm3 RBC 4.50 (3.65-5.03) M/mm3 Hgb 12.3 (11.8-15.2) gm/dl Hct 39.3 (35.5-45.6) % Plt Count 97 L (140-440) K/mm3 Comprehensive Metabolic Panel 08/03/17 08/04/17 Range/Units 04:54 06:01 Sodium 138 (137-145) mmol/L Potassium 4.0 D (3.6-5.0) mmol/L Chloride 102.3 (98-107) mmol/L Carbon Dioxide 22 D (22-30) mmol/L BUN 53 H (9-20) mg/dL Creatinine 1.6 H (0.8-1.5) mg/dL Glucose 83 (75-100) mg/dL Calcium 8.1 L (8.4-10.2) mg/dL Indirect Bilirubin 1.5 mg/dL AST 98 H 83 H (5-40) units/L ALT 87 H (7-56) units/L Alkaline Phosphatase 603 H (35-129) units/L Total Protein 7.0 6.4 (6.3-8.2) g/dL Albumin 2.9 L (3.9-5) g/dL - Imaging and Cardiology EKG: image reviewed Echo: report reviewed (07/2017: EF 15-20%, LV mass, RA mass, moderate MR, moderate TR) - Telemetry EKG Rhythm: Sinus Rhythm - EKG Sinus rhythms and dysrhythmias: sinus rhythm QRS axis and voltage: right axis deviation Myocardial infarction: septal VT (old age or ind, anterior VT (old age or i
--- NOTE | 2017-08-04 11:32 | Progress Note ---
Assessment and Plan - Patient Problems (1) Other acute kidney failure Current Visit: Yes Status: Acute Plan to address problem: Pre-renal azotemia secondary to volume depletion possibly superimposed on chronic kidney disease secondary to hypertensive nephrosclerosis and chronic cardiorenal syndrome. Kidney function improving. Follow-up electrolytes and renal function. Patient can be discharged and follow up in the office in a couple of weeks (2) Hypertensive chronic kidney disease with stage 1 through stage 4 chronic kidney disease, or unspecified chronic kidney disease Current Visit: Yes Status: Acute Plan to address problem: Follow-up blood pressure and adjust medications as indicated (3) Chronic systolic (congestive) heart failure Current Visit: Yes Status: Acute Plan to address problem: Patient is not in acute exacerbation. Needs close monitoring (4) Hyperkalemia Current Visit: Yes Status: Acute Plan to address problem: Treat hyperkalemia medically and follow up (5) Pneumonia involving right lung Current Visit: Yes Status: Acute Plan to address problem: I agree with antibiotics. Follow-up cultures. Subjective Date of service: 08/04/17 Principal diagnosis: acute on chronic heart failure Interval history: Patient seen lying in bed. He has no complaints this morning. No chest pain or shortness of breath. No nausea or vomiting Objective - Exam Narrative Exam: Chronically ill-looking middle-aged -Stateless male in no acute distress HEENT: NCAT, pink oral mucous membrane Neck: Supple, no venous distention CVS: S1S2 RRR with no murmur, rub or gallop Chest: Clear to auscultation Abdomen: Protuberant, soft, nontender, no organomegaly, bowel sounds are present Extremities: Significant muscle wasting, No edema, clean dressings in both legs Skin: Scaly with hyperpigmentation and lichenification in both legs and feet Neuro: Awake, alert no focal deficits - Vital Signs Vital signs: Vital Signs - 12hr 08/04/17 08/04/17 08/04/17 04:44 07:29 11:18 Temperature 97.8 F 97.6 F Pulse Rate 89 88 Respiratory 18 19 Rate Blood Pressure 116/88 130/100 130/100 O2 Sat by Pulse 98 100 Oximetry - Lab 08/04/17 06:01 08/04/17 06:01 Most recent lab results Calcium 8.1 mg/dL (8.4-10.2) L 08/04/17 06:01
[2017-08-04 17:10] VITALS: BP 120/89
[2017-08-04] MEDS ORDERED: ZITHROMAX PO SCH (22:00)
== END 2017-08-04 18:00 | disposition home or self-care (01) | DRG 291 ==
LOC: ED 20:39 → 3A 23:31 → 4A 08-03 01:16 → 3A 08-03 17:27
PROVIDERS: ADMIT Internal Medicine; ATTEND Internal Medicine
DX: I13.0 Hypertensive heart and chronic kidney disease with heart failure and stage 1 through stage 4 chronic kidney disease, or unspecified chronic kidney disease (principal); J18.1 Lobar pneumonia, unspecified organism; I50.23 Acute on chronic systolic (congestive) heart failure; N17.9 Acute kidney failure, unspecified; L97.818 Non-pressure chronic ulcer of other part of right lower leg with other specified severity; D68.9 Coagulation defect, unspecified; I50.22 Chronic systolic (congestive) heart failure; I87.8 Other specified disorders of veins; D69.6 Thrombocytopenia, unspecified; N18.9 Chronic kidney disease, unspecified; I42.9 Cardiomyopathy, unspecified; E87.5 Hyperkalemia; Z90.49 Acquired absence of other specified parts of digestive tract
CPT/HCPCS: 36415; 71045; 80048; 80053; 80074; 82550; 82553; 83880; 84484; 85025; 85027; 85610; 87040; 93005; 93010; 93306; 99285; J0456; J0696; J1644; J7040; J7050

== ENCOUNTER 2018-07-06 21:45 | Inpatient (IN) | payer OTHER ==
--- NOTE | 2018-07-06 22:06 | Emergency Department Report ---
ED Chest Pain HPI - General Stated Complaint: CHEST PAIN Time Seen by Provider: 07/06/18 21:59 Source: patient, EMS Mode of arrival: Stretcher Limitations: No Limitations - History of Present Illness Initial Comments: 62-year-old male with history of hypertension, questionable CHF (patient takes Lasix and carvedilol, however, is unaware of CHF diagnosis), presents to ED with chest pain. Patient reports onset of substernal chest pain while sitting on the porch. Patient states he got up to go inside the house, became diaphoretic and felt nauseated, vomited once. EMS was called and states patient was hypertensive and BP in the 180s. Aspirin and nitroglycerin were given, patient reports relief of pain with these medications. The patient actually reports that he has been having intermittent chest pain over the last month, but has an upcoming appointment at [facility] and was trying to make it to that appointment. Patient states today was the worse that the pain has ever been so he called EMS. Patient states pain is usually substernal and associated with diaphoresis and SOB. Today was the first time that he became nauseated and vomited. Patient denies alcohol, tobacco, drug use. Reports family history of heart disease. MD Complaint: chest pain -: month(s) (1) Onset: during rest Pain Location: substernal Pain Radiation: none Severity: severe Quality: tightness Consistency: now resolved Improves With: nothing Worsens With: nothing re: nausea, vomting, diaphoresis, dyspnea Treatments Prior to Arrival: aspirin, nitroglycerin - Related Data Home Medications Medication Instructions Recorded Confirmed Last Taken Furosemide [Lasix TAB] 40 mg PO BID 07/06/18 07/06/18 07/06/18 Lisinopril [Zestril TAB] 40 mg PO QDAY 07/06/18 07/06/18 07/06/18 Previous Rx's Medication Instructions Recorded Last Taken Type Carvedilol [Coreg] 3.125 mg PO BID #30 tablet 08/04/17 07/06/18 Rx Losartan [Cozaar] 100 mg PO QDAY #30 tablet 08/04/17 Unknown Rx Allergies Allergy/AdvReac Type Severity Reaction Status Date / Time No Known Allergies Allergy Verified 08/02/17 22:50 Heart Score - HEART Score History: Highly suspicious EKG: Non-specific Age: 45-65 Risk factors: 1-2 risk factors Troponin: < normal limit HEART Score: 5 ED Review of Systems ROS: Stated complaint: CHEST PAIN Other details as noted in HPI Comment: All other systems reviewed and negative Constitutional: denies: chills, fever Respiratory: shortness of breath Cardiovascular: chest pain Gastrointestinal: nausea, vomiting Musculoskeletal: other (denies leg pain or swelling) ED Past Medical Hx - Past Medical History Hx Hypertension: Yes Hx Congestive Heart Failure: Yes (systolic ) Additional medical history: hx of b/l leg cellulitis, b/l chronic venous stasis ulcers - Social History Smoking Status: Never Smoker - Medications Home Medications: Home Medications Medication Instructions Recorded Confirmed Last Taken Type Carvedilol [Coreg] 3.125 mg PO BID #30 tablet 08/04/17 07/06/18 Rx Losartan [Cozaar] 100 mg PO QDAY #30 tablet 08/04/17 Unknown Rx Furosemide [Lasix TAB] 40 mg PO BID 07/06/18 07/06/18 07/06/18 History Lisinopril [Zestril TAB] 40 mg PO QDAY 07/06/18 07/06/18 07/06/18 History ED Physical Exam - General General appearance: alert, in no apparent distress - Head Head exam: Present: atraumatic, normocephalic - Eye Eye exam: Present: normal appearance - ENT ENT exam: Present: mucous membranes moist - Neck Neck exam: Present: normal inspection - Respiratory Respiratory exam: Present: normal lung sounds bilaterally. Absent: respiratory distress - Cardiovascular Cardiovascular Exam: Present: regular rate, normal rhythm - GI/Abdominal GI/Abdominal exam: Present: soft. Absent: distended, tenderness - Extremities Exam Extremities exam: Absent: pedal edema, calf tenderness - Neurological Exam Neurological exam: Present: alert, oriented X3, CN II-XII intact. Absent: motor sensory deficit - Psychiatric Psychiatric exam: Present: normal affect, normal mood - Skin Skin exam: Present: warm, dry, intact, normal color ED Course Vital Signs 07/06/18 07/06/18 07/06/18 22:02 22:14 22:21 Temperature 98.0 F Pulse Rate 71 71 58 L Respiratory 18 18 18 Rate Blood Pressure 177/104 177/104 O2 Sat by Pulse 98 99 Oximetry 07/06/18 07/06/18 07/06/18 22:41 23:01 23:21 Temperature Pulse Rate 65 56 L 69 Respiratory 17 16 16 Rate Blood Pressure 177/104 155/88 177/104 O2 Sat by Pulse 96 97 98 Oximetry 07/06/18 07/06/18 07/06/18 23:33 23:41 23:53 Temperature Pulse Rate 56 L 55 L Respiratory 18 14 18 Rate Blood Pressure 155/88 155/88 O2 Sat by Pulse 98 98 Oximetry 07/07/18 07/07/18 07/07/18 00:00 00:21 00:41 Temperature Pulse Rate 63 68 86 Respiratory 18 16 16 Rate Blood Pressure 147/96 147/96 147/96 O2 Sat by Pulse 98 99 99 Oximetry 07/07/18 01:31 Temperature Pulse Rate 86 Respiratory Rate Blood Pressure O2 Sat by Pulse Oximetry - Reevaluation(s) Reevaluation #1: 07/06/18 22:46 Pt remains chest pain free at this time. ED Medical Decision Making - Lab Data Result diagrams: 07/06/18 22:03 07/06/18 22:03 - EKG Data -: EKG Interpreted by [facility] EKG shows normal: sinus rhythm, axis, QRS complexes Rate: normal - EKG Data When compared to previous EKG there are: changes noted Interpretation: other (prolonged QT; diffuse T wave inversions in all leads, slight ST depression in lateral leads) - Radiology Data Radiology results: image reviewed - Medical Decision Making 62-year-old male with history of CHF presents to ED with 1 month history of intermittent substernal chest pain with associated nausea, vomiting, diaphoresis. Pain resolved with administration of aspirin and nitroglycerin from EMS. Troponin is negative. EKGs 2 both show diffuse T-wave inversions in all leads, however no significant ST elevation or depression. This EKG is changed compared to one year ago when patient was admitted. The patient has remained chest pain-free here in ED. BP he has improved to 150s/80s. O2 sats normal, no respiratory distress. Will admit hospitalist for further treatment and workup. - Differential Diagnosis ACS, CHF, pneumonia Critical Care Time: Yes Critical care time in (mins) excluding proc time.: 35 Critical care attestation.: If time is entered above; I have spent that time in minutes in the direct care of this critically ill patient, excluding procedure time. Critical Care Time: 35 minutes ED Disposition Clinical Impression: Unstable angina Disposition: DC-[id number] OP ADMIT IP TO THIS HOSP Is pt being admited?: Yes Condition: Stable Time of Disposition: 23:14
[2018-07-06 22:30] LABS: Basophils % (Auto) 0.3 % (0.0-1.8); Eosinophils # (Auto) 0.2 K/mm3 (0.0-0.4); Eosinophils % (Auto) 5.1 % (0.0-4.3); Hematocrit 37.8 % (35.5-45.6); Hemoglobin 12.6 gm/dl (11.8-15.2); Lymphocytes # (Auto) 1.2 K/mm3 (1.2-5.4); Lymphocytes % (Auto) 25.1 % (13.4-35.0); Mean Corpuscular HGB Conc 33 % (32-34); Mean Corpuscular Volume 83 fl (84-94); Monocytes # (Auto) 0.7 K/mm3 (0.0-0.8); Monocytes % (Auto) 13.4 % (0.0-7.3); Platelet Count 167 K/mm3 (140-440); Red Blood Count 4.56 M/mm3 (3.65-5.03); Red Cell Distribution Width 16.1 % (13.2-15.2)
[2018-07-06 22:39] LABS: INR 1.03 (0.87-1.13)
[2018-07-06 22:40] LABS: Partial Thromboplastin Time 27.6 Sec. (24.2-36.6)
[2018-07-06 22:51] LABS: BUN/Creatinine Ratio 9; Blood Urea Nitrogen 16 mg/dL (9-20); Calcium 8.9 mg/dL (8.4-10.2); Hemolysis Index 8
--- NOTE | 2018-07-06 23:39 | XRay Report ---
PROCEDURE: XR CHEST 1V AP TECHNIQUE: Chest radiograph single view. HISTORY: chest pain COMPARISONS: 08/02/2017 . FINDINGS: Heart: Normal. Mediastinum/Vessels: Normal. Lungs/Pleural space: Normal. Bony thorax: No acute osseous abnormality. Life support devices: None. IMPRESSION: No acute cardiopulmonary abnormality. This document is electronically signed by Dawson Roldan MD., Jul 06 2018 11:37:58 PM ET
[2018-07-06] MEDS ORDERED: ZOFRAN IV PRN (23:50)
[2018-07-06] MEDS ORDERED: TYLENOL PO PRN (23:50)
[2018-07-06] MEDS ORDERED: SODIUM CHLORIDE FLUSH SYRINGE 10 ML IV PRN (23:50)
[2018-07-06] MEDS ORDERED: MORPHINE IV PRN (23:50)
[2018-07-06] MEDS ORDERED: PERCOCET 5/325 PO PRN (23:50)
--- NOTE | 2018-07-06 23:55 | History and Physical Report ---
History of Present Illness Date of examination: 07/06/18 Chief complaint: Chest pain History of present illness: Patient is a 62-year-old -[place] male with history of CHF and hypertens ion who presented to the ED on account of 1 month hx of mid-sternal chest pain. Patient stated that his pain got worse today, which prompted him to come to the ED for further evaluation. He described it as sharp in character, rated 9/10, constant in duration and non-radiating. No known aggravating or relieving factors. He has associated diaphoresis, dry cough, and nausea with vomiting 1 episode. He denies shortness of breath, palpitation, leg swelling, fever, chills, orthopnea or PND. No headaches, dizziness, syncope or loss of consciousness. No known prior history of stress test. Past History Past Medical History: heart failure, hypertension, hyperlipidemia, renal failure, other (prostate cancer, history of intramural mass, chronic venous st asis ) Past Surgical History: appendectomy, Other (left hand surgery, prostatectomy) Social history: alcohol abuse (patient is an ex-alcohol abuser, he drank for more than 15 years but quit in 1984. He denies tobacco or illicit drug use) Family history: other (mother from heart attack at 63 years old. Sister from heart attack in her 50's) Medications and Allergies Allergies Allergy/AdvReac Type Severity Reaction Status Date / Time No Known Allergies Allergy Verified 08/02/17 22:50 Home Medications Medication Instructions Recorded Confirmed Last Taken Type Carvedilol [Coreg] 3.125 mg PO BID #30 tablet 08/04/17 07/06/18 Rx Losartan [Cozaar] 100 mg PO QDAY #30 tablet 08/04/17 Unknown Rx Furosemide [Lasix TAB] 40 mg PO BID 07/06/18 07/06/18 07/06/18 History Lisinopril [Zestril TAB] 40 mg PO QDAY 07/06/18 07/06/18 07/06/18 History Active Meds: Active Medications Acetaminophen (Tylenol) 650 mg PO Q4H PRN PRN Reason: Pain MILD(1-3)/Fever >100.5/NUNN Ondansetron HCl (Zofran) 4 mg IV Q8H PRN PRN Reason: Nausea And Vomiting Oxycodone/Acetaminophen (Percocet 5/325) 1 tab PO Q6H PRN PRN Reason: Pain, Moderate (4-6) Sodium Chloride (Sodium Chloride Flush Syringe 10 Ml) 10 ml IV BID SELINA Sodium Chloride (Sodium Chloride Flush Syringe 10 Ml) 10 ml IV PRN PRN PRN Reason: LINE FLUSH Review of Systems All systems: negative (except as documented in the HPI, 14 point system reviewed were negative) Exam - Constitutional Vitals: Temp Pulse Resp BP Pulse Ox 98.0 F 56 L 14 155/88 98 07/06/18 22:14 07/06/18 23:41 07/06/18 23:41 07/06/18 23:41 07/06/18 23:41 General appearance: Present: no acute distress - EENT Eyes: Present: PERRL, EOM intact ENT: hearing intact, clear oral mucosa - Neck Neck: Present: supple - Respiratory Respiratory effort: normal Respiratory: bilateral: CTA - Cardiovascular Rhythm: regular Heart Sounds: Present: S1 & S2 - Extremities Extremity abnormal: edema (in left foot), other (healed ulcers noted) - Abdominal General gastrointestinal: Present: soft, non-tender, normal bowel sounds Male genitourinary: Present: deferred - Rectal Rectal Exam: deferred - Integumentary Integumentary: Present: clear, warm, dry - Musculoskeletal Musculoskeletal: strength equal bilaterally - Psychiatric Psychiatric: appropriate mood/affect - Neurologic Neurologic: CNII-XII intact Results - Labs CBC & Chem 7: 07/06/18 22:03 07/06/18 22:03 Labs: Laboratory Last Values WBC 4.9 K/mm3 (4.5-11.0) 07/06/18 22:03 RBC 4.56 M/mm3 (3.65-5.03) 07/06/18 22:03 Hgb 12.6 gm/dl (11.8-15.2) 07/06/18 22:03 Hct 37.8 % (35.5-45.6) 07/06/18 22:03 MCV 83 fl (84-94) L 07/06/18 22:03 MCH 28 pg (28-32) 07/06/18 22:03 MCHC 33 % (32-34) 07/06/18 22:03 RDW 16.1 % (13.2-15.2) H 07/06/18 22:03 Plt Count 167 K/mm3 (140-440) 07/06/18 22:03 Lymph % (Auto) 25.1 % (13.4-35.0) 07/06/18 22:03 [place] % (Auto) 13.4 % (0.0-7.3) H 07/06/18 22:03 Eos % (Auto) 5.1 % (0.0-4.3) H 07/06/18 22:03 Baso % (Auto) 0.3 % (0.0-1.8) 07/06/18 22:03 Lymph # 1.2 K/mm3 (1.2-5.4) 07/06/18 22:03 [place] # 0.7 K/mm3 (0.0-0.8) 07/06/18 22:03 Eos # 0.2 K/mm3 (0.0-0.4) 07/06/18 22:03 Baso # 0.0 K/mm3 (0.0-0.1) 07/06/18 22:03 Seg Neutrophils % 56.1 % (40.0-70.0) 07/06/18 22:03 Seg Neutrophils # 2.7 K/mm3 (1.8-7.7) 07/06/18 22:03 PT 14.1 Sec. (12.2-14.9) 07/06/18 22:03 INR 1.03 (0.87-1.13) 07/06/18 22:03 APTT 27.6 Sec. (24.2-36.6) 07/06/18 22:03 Sodium 140 mmol/L (137-145) 07/06/18 22:03 Potassium 3.5 mmol/L (3.6-5.0) L 07/06/18 22:03 Chloride 103.7 mmol/L (98-107) 07/06/18 22:03 Carbon Dioxide 24 mmol/L (22-30) 07/06/18 22:03 16 mmol/L 07/06/18 22:03 BUN 16 mg/dL (9-20) 07/06/18 22:03 1.7 mg/dL (0.8-1.5) H 07/06/18 22:03 Estimated GFR 50 ml/min 07/06/18 22:03 9 % 07/06/18 22:03 Glucose 88 mg/dL (75-100) 07/06/18 22:03 Calcium 8.9 mg/dL (8.4-10.2) 07/06/18 22:03 < 0.010 ng/mL (0.00-0.029) 07/06/18 22:03 NT-Pro-B Natriuret Pep 1112 pg/mL (0-900) H 07/06/18 22:03 Assessment and Plan Assessment and plan: Chest pain rule out ACS -On chest pain protocol -Further investigative testing with stress test Hypertensive urgency -On antihypertensives, adjust as needed Chronic systolic heart failure with EF of 15-20% -No acute exacerbation -Last echo was in 07/2017, will repeat -On BB, we'll hold his home ACE1 due to renal failure History of intramural mass per echo -Follow up echo pending History of moderate MR/TR -Follow up echo pending CKD stage 3 -Creatinine level about baseline DVT prophylaxis with heparin Disposition: Patient will be placed in observation status pending further evaluation Time spent: 38 minutes
[2018-07-06] MEDS ORDERED: K-DUR PO ONE (23:56)
[2018-07-07] MEDS ORDERED: NITROSTAT SL ONE (01:06)
[2018-07-07] MEDS ORDERED: NITROSTAT SL PRN (01:15)
[2018-07-07] MEDS ORDERED: APRESOLINE IV PRN (01:25)
[2018-07-07] MEDS ORDERED: HEPARIN SUB-Q SCH (06:00)
[2018-07-07 06:32] LABS: Alanine Aminotransferase 8 units/L (7-56); Albumin 3.8 g/dL (3.9-5); BUN/Creatinine Ratio 10; Blood Urea Nitrogen 15 mg/dL (9-20); Calcium 8.9 mg/dL (8.4-10.2); Chol/HDL Ratio 6.73 %; HDL Cholesterol 34 mg/dL (40-59); Hemolysis Index 40; LDL Cholesterol,Direct 182 mg/dL (50-130)
[2018-07-07 06:35] LABS: Bilirubin,Direct < 0.2 mg/dL (0-0.2)
[2018-07-07] MEDS ORDERED: NORVASC PO SCH (10:00)
[2018-07-07] MEDS ORDERED: LEXISCAN IV ONE ×2 (10:37→11:36)
[2018-07-07] MEDS ORDERED: HEPARIN/ 0.45% NACL-25,000 UNIT/500 ML 25,000 UNIT/500 ML BAG IV SCH (12:00)
--- NOTE | 2018-07-07 12:26 | Consultation ---
History of Present Illness Consult date: 07/07/18 Requesting physician: STEVEN FLANAGAN Consult reason: chest pain History of present illness: The pt is a 62 YO male with a past medical history of CMP, HFrEF, renal insufficiency, HTN, HLP, LV mass, RA mass. He has been seen by our practice on a prior hospitalization. He states that he is followed by [facility]. He presented with c/o chest pain for the past 1 month. He describes his chest pain as an intermittent substernal pressure which occurs mostly at rest and lasts for approx 20 minutes per episode. The pain is associated with diaphoresis and SOB. Yesterday, pt experienced a bout of nausea and vomiting for the first time with the chest pain. Pt denies any palpitations, dizziness or syncope. He underwent stress testing this AM which was markedly abnormal and thus cardiology has been consulted. Echo done 07/2017 showed EF 15-20%, pseudonormalization, intramural mass on lateral wall of LV measuring 3.58x2.36cm, LA mildly dilated, RV mildly dilated, RA mildly dilated, mass in RA attached to free wall measuring 2.59x2.43cm, mod MR, mod TR, RVSP 38mmHg. Past History Past Medical History: heart failure, hypertension, hyperlipidemia, renal failure, other (prostate cancer, history of intramural mass, chronic venous stasis ) Past Surgical History: appendectomy, Other (left hand surgery, prostatectomy) Social history: alcohol abuse (patient is an ex-alcohol abuser, he drank for more than 15 years but quit in 1984. He denies tobacco or illicit drug use) Family history: other (mother from heart attack at 63 years old. Sister from heart attack in her 50's) Medications and Allergies Allergies Allergy/AdvReac Type Severity Reaction Status Date / Time No Known Allergies Allergy Verified 08/02/17 22:50 Home Medications Medication Instructions Recorded Confirmed Last Taken Type Carvedilol [Coreg] 3.125 mg PO BID #30 tablet 08/04/17 07/06/18 Rx Losartan [Cozaar] 100 mg PO QDAY #30 tablet 08/04/17 Unknown Rx Furosemide [Lasix TAB] 40 mg PO BID 07/06/18 07/06/18 07/06/18 History Lisinopril [Zestril TAB] 40 mg PO QDAY 07/06/18 07/06/18 07/06/18 History Active Meds: Active Medications Acetaminophen (Tylenol) 650 mg PO Q4H PRN PRN Reason: Pain MILD(1-3)/Fever >100.5/NUNN Amlodipine Besylate (Norvasc) 10 mg PO QDAY [facility] Aspirin (Aspirin) 325 mg PO QDAY [facility] Atorvastatin Calcium (Lipitor) 80 mg PO QHS [facility] Carvedilol (Coreg) 3.125 mg PO BID [facility] Heparin Sodium (Porcine) (Heparin 10,000 Units/10 Ml) 4,000 unit IV ONCE ONE Stop: 07/07/18 12:29 Hydralazine HCl (Apresoline) 10 mg IV Q4HR PRN PRN Reason: Blood Pressure Heparin Sodium/Sodium Chloride (Heparin/ 0.45% Nacl-25,000 Unit/500 Ml) 25,000 unit in 500 mls @ 20 mls/hr IV TITRATE [facility]; Protocol Sodium Chloride (Nacl 0.9% 500 Ml) 500 mls @ 50 mls/hr IV DIRECT SELINA Stop: 07/07/18 22:59 Morphine Sulfate (Morphine) 4 mg IV Q4H PRN PRN Reason: Pain , Severe (7-10) Last Admin: 07/07/18 02:53 Dose: 4 mg Documented by: Nitroglycerin (Nitrostat) 0.4 mg SL .Q5MIN PRN PRN Reason: Chest Pain Ondansetron HCl (Zofran) 4 mg IV Q8H PRN PRN Reason: Nausea And Vomiting Oxycodone/Acetaminophen (Percocet 5/325) 1 tab PO Q6H PRN PRN Reason: Pain, Moderate (4-6) Sodium Chloride (Sodium Chloride Flush Syringe 10 Ml) 10 ml IV BID [facility] Sodium Chloride (Sodium Chloride Flush Syringe 10 Ml) 10 ml IV PRN PRN PRN Reason: LINE FLUSH Review of Systems Constitutional: no weight loss, no weight gain, no fever, no chills, no sweats Ears, nose, mouth and throat: no ear pain, no nose pain, no sinus pressure, no sinus pain Cardiovascular: chest pain, shortness of breath, dyspnea on exertion, high blood pressure, no orthopnea, no palpitations, no rapid/irregular heart beat, no edema, no syncope, no lightheadedness, no leg edema Respiratory: shortness of breath, dyspnea on exertion, no cough, no congestion, no wheezing, no pain on inspiration Gastrointestinal: nausea, vomiting, no abdominal pain, no diarrhea, no constipation, no change in bowel habits Genitourinary Male: no dysuria, no hematuria, no flank pain, no discharge, no urinary frequency, no urinary hesitancy Musculoskeletal: no neck stiffness, no neck pain, no shooting arm pain, no arm numbness/tingling, no low back pain, no shooting leg pain Integumentary: no rash, no pruritis, no redness, no sores, no wounds Neurological: no head injury, no paralysis, no weakness, no parathesias, no numbness, no tingling, no seizures, no syncope Psychiatric: no anxiety Endocrine: no cold intolerance, no heat intolerance Hematologic/Lymphatic: no easy bruising, no easy bleeding Allergic/Immunologic: no urticaria, no wheezing Physical Examination Vital Signs Pulse Resp 71 18 07/06/18 22:02 07/06/18 22:02 General appearance: no acute distress HEENT: Positive: PERRL, Normocephaly, Mucus Membranes Moist Neck: Positive: neck supple, trachea midline Cardiac: Positive: Reg Rate and Rhythm, S1/S2 Lungs: Positive: Decreased Breath Sounds Neuro: Positive: Grossly Intact Abdomen: Positive: Soft. Negative: Tender Skin: Negative: Rash, Wound Musculoskeletal: No Pain Extremities: Absent: edema Results 07/06/18 22:03 07/07/18 04:18 Cardiac Enzymes 07/07/18 Range/Units 04:18 AST 14 (5-40) units/L Coagulation 07/06/18 Range/Units 22:03 PT 14.1 (12.2-14.9) Sec. INR 1.03 (0.87-1.13) APTT 27.6 (24.2-36.6) Sec. Lipids 07/07/18 Range/Units 04:18 Triglycerides 109 (2-149) mg/dL Cholesterol 229 H (50-199) mg/dL HDL Cholesterol 34 L (40-59) mg/dL Cholesterol/HDL Ratio 6.73 % CBC 07/06/18 Range/Units 22:03 WBC 4.9 (4.5-11.0) K/mm3 RBC 4.56 (3.65-5.03) M/mm3 Hgb 12.6 (11.8-15.2) gm/dl Hct 37.8 (35.5-45.6) % Plt Count 167 (140-440) K/mm3 Lymph # 1.2 (1.2-5.4) K/mm3 [place] # 0.7 (0.0-0.8) K/mm3 Eos # 0.2 (0.0-0.4) K/mm3 Baso # 0.0 (0.0-0.1) K/mm3 Comprehensive Metabolic Panel 07/06/18 07/07/18 Range/Units 22:03 04:18 Sodium 140 141 (137-145) mmol/L Potassium 3.5 L 3.5 L (3.6-5.0) mmol/L Chloride 103.7 104.6 (98-107) mmol/L Carbon Dioxide 24 24 (22-30) mmol/L BUN 16 15 (9-20) mg/dL Creatinine 1.7 H 1.5 (0.8-1.5) mg/dL Glucose 88 94 (75-100) mg/dL Calcium 8.9 8.9 (8.4-10.2) mg/dL Direct Bilirubin < 0.2 (0-0.2) mg/dL Indirect Bilirubin 0.2 mg/dL AST 14 (5-40) units/L ALT 8 (7-56) units/L Alkaline Phosphatase 87 (35-129) units/L Total Protein 7.5 (6.3-8.2) g/dL Albumin 3.8 L (3.9-5) g/dL - Imaging and Cardiology Echo: pending, report reviewed (Echo done 07/2017 showed EF 15-20%, pseudonormalization, intramural mass on lateral wall of LV measuring 3.58x2.36cm, LA mildly dilated, RV mildly dilated, RA mildly dilated, mass in RA attached to free wall measuring 2.59x2.43cm, mod MR, mod TR, RVSP 38mmHg. ) EKG: report reviewed, image reviewed EKG interpretations - Telemetry EKG Rhythm: Sinus Rhythm - EKG Sinus rhythms and dysrhythmias: sinus rhythm Repolarization changes or abnormalities: ST or T wave suggestive of ischemia Assessment and Plan Pt presented with c/o chest pain for the past 1 month. Pt has h/o CMP, echo done 07/2017 showed EF 15-20%, pseudonormalization, intramural mass on lateral wall of LV measuring 3.58x2.36cm, LA mildly dilated, RV mildly dilated, RA mildly dilated, mass in RA attached to free wall measuring 2.59x2.43cm, mod MR, mod TR, RVSP 38mmHg. He underwent stress testing this AM which was markedly abnormal. Coronary angiography recommended for definitive diagnosis. Indications, potential risks and benefits of LHC reviewed with pt and he is agreeable to proceed with LHC in AM. NPO after MN. Initiate heparin gtt and lipitor. Cont ASA 325, coreg. No ACEI/ARB or aldactone at this time in setting of renal insufficiency. Await echo. The patient has been seen in conjunction with Dr. Hidalgo who agrees with the assessment and plan of care. - Patient Problems (1) Abnormal stress test Current Visit: Yes Status: Acute (2) Unstable angina Current Visit: Yes Status: Acute (3) Cardiomyopathy Current Visit: Yes Status: Chronic (4) HTN (hypertension) Current Visit: Yes Status: Chronic (5) Hyperlipidemia Current Visit: Yes Status: Chronic (6) CKD (chronic kidney disease) Current Visit: Yes Status: Chronic
[2018-07-07] MEDS ORDERED: HEPARIN 10,000 UNITS/10 ML IV ONE (12:28)
[2018-07-07] MEDS ORDERED: NACL 0.9% 500 ML 500 ML IV SCH (13:00)
[2018-07-07] MEDS: ASPIRIN PO SCH (14:41)
[2018-07-07] MEDS: NORVASC PO SCH (14:41)
[2018-07-07] MEDS: COREG PO SCH ×2 (14:41→22:01)
[2018-07-07] MEDS: SODIUM CHLORIDE FLUSH SYRINGE 10 ML IV SCH ×2 (14:42→22:01)
[2018-07-07 16:41] LABS: Hemoglobin 13.8 gm/dl (11.8-15.2)
[2018-07-07 16:52] LABS: INR 1.08 (0.87-1.13)
[2018-07-07 17:00] LABS: Partial Thromboplastin Time 143.8 Sec. (24.2-36.6)
--- NOTE | 2018-07-07 18:17 | Progress Note ---
Assessment and Plan Assessment and plan: Patient is a 62-year-old -[place] male with history of CHF and hypertension who presented to the ED on account of 1 month hx of mid-sternal chest pain. Patient stated that his pain got worse today, which prompted him to come to the ED for further evaluation. He described it as sharp in character, rated 9/10, constant in duration and non-radiating. No known aggravating or relieving factors. He has associated diaphoresis, dry cough, and nausea with vomiting 1 episode. He denies shortness of breath, palpitation, leg swelling, fever, chills, orthopnea or PND. No headaches, dizziness, syncope or loss of consciousness. No known prior history of stress test. Echo done 07/2017 showed EF 15-20%, pseudonormalization, intramural mass on lateral wall of LV measuring 3.58x2.36cm, LA mildly dilated, RV mildly dilated, RA mildly dilated, mass in RA attached to free wall measuring 2.59x2.43cm, mod MR, mod TR, RVSP 38mmHg Unstable Angina -Positive stress test -Heparin drip, BB, STAIN, -CARDIAC CATH IN AM Hypertensive urgency -On antihypertensives, adjust as needed Chronic systolic heart failure with underlying cardiomyopathy EF of 15-20% -No acute exacerbation -Last echo was in 07/2017, will repeat -On BB, we'll hold his home ACE1 due to renal failure History of intramural mass per echo -Follow up echo pending History of moderate MR/TR -Follow up echo pending CKD stage 3 -Creatinine level about baseline DVT prophylaxis with heparin change to inpatient plan of care discussed with the patient in detail History Interval history: Patient seen and examined, admitted with chest pain now improved, no shortness of breath at this time. Advised of positive stress test and plan for cardiac cath in am. Hospitalist Physical - Constitutional Vitals: Temp Pulse Resp BP Pulse Ox 97.4 F L 57 L 18 153/90 99 07/07/18 08:28 07/07/18 17:10 07/07/18 17:10 07/07/18 17:10 07/07/18 17:10 General appearance: Present: no acute distress, well-nourished - EENT Eyes: Present: PERRL, EOM intact ENT: hearing intact - Neck Neck: Present: supple, normal ROM - Respiratory Respiratory effort: normal Respiratory: bilateral: diminished - Cardiovascular Rhythm: regular Heart Sounds: Present: S1 & S2, systolic murmur - Extremities Extremities: no ischemia, pulses intact, pulses symmetrical Extremity abnormal: edema (decrease) Peripheral Pulses: within normal limits - Abdominal General gastrointestinal: soft, non-tender, non-distended, normal bowel sounds - Integumentary Integumentary: Present: clear, warm, dry, normal turgor - Psychiatric Psychiatric: appropriate mood/affect, intact judgment & insight, cooperative - Neurologic Neurologic: CNII-XII intact, focal deficits, moves all extremities - Allied Health Allied health notes reviewed: nursing Results - Labs CBC & Chem 7: 07/07/18 16:03 07/07/18 04:18 Labs: Laboratory Last Values WBC 4.9 K/mm3 (4.5-11.0) 07/06/18 22:03 RBC 4.56 M/mm3 (3.65-5.03) 07/06/18 22:03 Hgb 13.8 gm/dl (11.8-15.2) 07/07/18 16:03 Hct 41.0 % (35.5-45.6) 07/07/18 16:03 MCV 83 fl (84-94) L 07/06/18 22:03 MCH 28 pg (28-32) 07/06/18 22:03 MCHC 33 % (32-34) 07/06/18 22:03 RDW 16.1 % (13.2-15.2) H 07/06/18 22:03 Plt Count 157 K/mm3 (140-440) 07/07/18 16:03 Lymph % (Auto) 25.1 % (13.4-35.0) 07/06/18 22:03 [place] % (Auto) 13.4 % (0.0-7.3) H 07/06/18 22:03 Eos % (Auto) 5.1 % (0.0-4.3) H 07/06/18 22:03 Baso % (Auto) 0.3 % (0.0-1.8) 07/06/18 22:03 Lymph # 1.2 K/mm3 (1.2-5.4) 07/06/18 22:03 [place] # 0.7 K/mm3 (0.0-0.8) 07/06/18 22:03 Eos # 0.2 K/mm3 (0.0-0.4) 07/06/18 22:03 Baso # 0.0 K/mm3 (0.0-0.1) 07/06/18 22:03 Seg Neutrophils % 56.1 % (40.0-70.0) 07/06/18 22:03 Seg Neutrophils # 2.7 K/mm3 (1.8-7.7) 07/06/18 22:03 PT 14.7 Sec. (12.2-14.9) 07/07/18 16:03 INR 1.08 (0.87-1.13) 07/07/18 16:03 APTT 143.8 Sec. (24.2-36.6) H* 07/07/18 16:03 Sodium 141 mmol/L (137-145) 07/07/18 04:18 Potassium 3.5 mmol/L (3.6-5.0) L 07/07/18 04:18 Chloride 104.6 mmol/L (98-107) 07/07/18 04:18 Carbon Dioxide 24 mmol/L (22-30) 07/07/18 04:18 16 mmol/L 07/07/18 04:18 BUN 15 mg/dL (9-20) 07/07/18 04:18 1.5 mg/dL (0.8-1.5) 07/07/18 04:18 Estimated GFR 58 ml/min 07/07/18 04:18 10 % 07/07/18 04:18 Glucose 94 mg/dL (75-100) 07/07/18 04:18 POC Glucose 79 (70-105) 07/07/18 16:20 Calcium 8.9 mg/dL (8.4-10.2) 07/07/18 04:18 Magnesium 1.90 mg/dL (1.7-2.3) 07/07/18 04:18 0.40 mg/dL (0.1-1.2) 07/07/18 04:18 < 0.2 mg/dL (0-0.2) 07/07/18 04:18 0.2 mg/dL 07/07/18 04:18 AST 14 units/L (5-40) 07/07/18 04:18 ALT 8 units/L (7-56) 07/07/18 04:18 87 units/L (35-129) 07/07/18 04:18 < 0.010 ng/mL (0.00-0.029) 07/07/18 16:03 NT-Pro-B Natriuret Pep 1112 pg/mL (0-900) H 07/06/18 22:03 7.5 g/dL (6.3-8.2) 07/07/18 04:18 3.8 g/dL (3.9-5) L 07/07/18 04:18 1.0 % 07/07/18 04:18 Triglycerides 109 mg/dL (2-149) 07/07/18 04:18 Cholesterol 229 mg/dL (50-199) H 07/07/18 04:18 182 mg/dL (50-130) H 07/07/18 04:18 34 mg/dL (40-59) L 07/07/18 04:18 6.73 % 07/07/18 04:18 Active Medications - Current Medications Current Medications: Generic Name Dose Route Start Last Admin Trade Name Freq PRN Reason Stop Dose Admin Acetaminophen 650 mg 07/06/18 23:50 Tylenol PO Q4H PRN Pain MILD(1-3)/Fever >100.5/NUNN Amlodipine Besylate 10 mg 07/07/18 10:00 07/07/18 14:41 Norvasc PO 10 mg QDAY SELINA Administration Aspirin 325 mg 07/07/18 10:00 07/07/18 14:41 Aspirin PO 325 mg QDAY SELINA Administration Atorvastatin Calcium 80 mg 07/07/18 22:00 Lipitor PO QHS SELINA Carvedilol 3.125 mg 07/07/18 10:00 07/07/18 14:41 Coreg PO 3.125 mg BID SELINA Administration Hydralazine HCl 10 mg 07/07/18 01:25 Apresoline IV Q4HR PRN Blood Pressure Heparin Sodium/Sodium Chloride 25,000 unit in 500 mls @ 20 mls/hr 07/07/18 12:00 07/07/18 15:25 Heparin/ 0.45% Nacl-25,000 Unit/500 Ml IV 07/08/18 04:00 1,000 units/hr TITRATE SELINA 20 mls/hr Administration Protocol 1,000 UNITS/HR Sodium Chloride 500 mls @ 50 mls/hr 07/07/18 13:00 Nacl 0.9% 500 Ml IV 07/07/18 22:59 DIRECT SELINA Morphine Sulfate 4 mg 07/06/18 23:50 07/07/18 02:53 Morphine IV 4 mg Q4H PRN Administration Pain , Severe (7-10) Nitroglycerin 0.4 mg 07/07/18 01:15 Nitrostat SL .Q5MIN PRN Chest Pain Ondansetron HCl 4 mg 07/06/18 23:50 Zofran IV Q8H PRN Nausea And Vomiting Oxycodone/Acetaminophen 1 tab 07/06/18 23:50 Percocet 5/325 PO Q6H PRN Pain, Moderate (4-6) Sodium Chloride 10 ml 07/07/18 10:00 07/07/18 14:42 Sodium Chloride Flush Syringe 10 Ml IV 10 ml BID SELINA Administration Sodium Chloride 10 ml 07/06/18 23:50 Sodium Chloride Flush Syringe 10 Ml IV PRN PRN LINE FLUSH
[2018-07-08 05:30] LABS: Basophils % (Auto) 0.6 % (0.0-1.8); Eosinophils # (Auto) 0.4 K/mm3 (0.0-0.4); Eosinophils % (Auto) 8.7 % (0.0-4.3); Hematocrit 40.7 % (35.5-45.6); Hemoglobin 13.5 gm/dl (11.8-15.2); Lymphocytes # (Auto) 1.5 K/mm3 (1.2-5.4); Lymphocytes % (Auto) 28.8 % (13.4-35.0); Mean Corpuscular HGB Conc 33 % (32-34); Mean Corpuscular Volume 83 fl (84-94); Monocytes # (Auto) 0.6 K/mm3 (0.0-0.8); Monocytes % (Auto) 11.2 % (0.0-7.3); Platelet Count 166 K/mm3 (140-440); Red Cell Distribution Width 16.4 % (13.2-15.2)
[2018-07-08 05:39] LABS: INR 1.05 (0.87-1.13)
[2018-07-08 05:44] LABS: BUN/Creatinine Ratio 10; Blood Urea Nitrogen 14 mg/dL (9-20); Calcium 8.9 mg/dL (8.4-10.2); Hemolysis Index 6
[2018-07-08] MEDS ORDERED: NACL 0.9% 500 ML 500 ML IV SCH (06:00)
[2018-07-08] MEDS ORDERED: NACL 0.9% 500 ML 500 ML ONE (07:18)
[2018-07-08] MEDS ORDERED: ECOTRIN PO ONE (07:18)
[2018-07-08] MEDS: ASPIRIN PO SCH (07:23)
[2018-07-08] MEDS ORDERED: ASPIRIN ONE (07:25)
[2018-07-08] MEDS ORDERED: SUBLIMAZE ONE (07:58)
[2018-07-08] MEDS ORDERED: HEPARIN/NS 5000 UNIT/500ML(CATH LAB) 1,000 ML IR ONE (07:58)
[2018-07-08] MEDS ORDERED: VERSED ONE (07:58)
[2018-07-08] MEDS ORDERED: CALAN ONE (07:59)
[2018-07-08] MEDS ORDERED: NITROGLYCERIN SYRINGE 3 ML ONE (07:59)
[2018-07-08] MEDS ORDERED: XYLOCAINE 2% INFILTRATI ONE (07:59)
--- NOTE | 2018-07-08 08:01 | Treadmill Report ---
MYOCARDIAL PERFUSION IMAGING STUDY Resting images revealed decreased radioisotope activity in the inferior wall, small area. There is also diminished uptake in the apex of the ventricle. On post-Lexiscan scan perfusion images, there is significantly diminished uptake in the whole septum, apex and proximal inferior wall. There was transient ischemic dilatation. TID was 1.50. On gated scan, there was hypokinesis of septum and dyskinesis of the inferior wall. Ejection fraction was noted to be 31%. IMPRESSION: This test is markedly positive for extensive ischemia involving entire septum and proximal anterior wall and apex and basal inferior wall. Discussed with interventionalist, Dr. Joselyn Bautista and scheduled for the cardiac catheterization. JOB# [id number] BRAXTON/REBECCA
[2018-07-08] MEDS: HEPARIN 10,000 UNITS/10 ML ONE ×2 (08:08→08:20)
[2018-07-08] MEDS ORDERED: ALUM-MAG HYDROX-SIMETH 200-200-20MG/5ML ONE (08:43)
[2018-07-08] MEDS ORDERED: EFFIENT PO ONE (08:43)
[2018-07-08] MEDS: SODIUM CHLORIDE FLUSH SYRINGE 10 ML IV SCH ×2 (10:00→23:05)
--- NOTE | 2018-07-08 10:17 | Progress Note ---
Assessment and Plan see cath report - s/p pci of lad w/ mohsen (well tolerated) effient/asa/statin cont bb hold stephan due to recent fay standard radial care clinically stable and cp-free likely am dc - Patient Problems (1) Abnormal stress test Current Visit: Yes Status: Acute (2) CKD (chronic kidney disease) Current Visit: Yes Status: Chronic (3) Cardiomyopathy Current Visit: Yes Status: Chronic (4) HTN (hypertension) Current Visit: Yes Status: Chronic (5) Hyperlipidemia Current Visit: Yes Status: Chronic (6) Chronic systolic (congestive) heart failure Current Visit: No Status: Acute Subjective Date of service: 07/08/18 Interval history: cp yesterday Objective Vital Signs Temp Pulse Resp BP Pulse Ox 07/08/18 09:59 72 12 144/80 96 07/08/18 09:30 70 15 149/92 98 07/08/18 09:15 65 14 145/93 97 07/08/18 08:55 87 16 143/86 97 07/08/18 04:25 98.2 F 60 18 180/112 98 07/07/18 23:50 98.4 F 56 L 18 167/97 100 07/07/18 20:35 66 07/07/18 19:20 98.0 F 66 18 123/69 98 07/07/18 17:10 57 L 18 153/90 99 07/07/18 10:50 154/96 07/07/18 10:48 150/90 07/07/18 10:47 149/93 07/07/18 10:46 142/92 07/07/18 10:44 136/88 07/07/18 10:42 173/99 07/07/18 10:39 20 07/07/18 10:34 159/88 07/07/18 10:30 167/89 - Physical Examination HEENT: Positive: PERRL, Normocephaly, Mucus Membranes Moist Neck: Positive: neck supple, trachea midline Neuro: Positive: Grossly Intact Abdomen: Positive: Soft. Negative: Tender Skin: Negative: Rash, Wound Musculoskeletal: No Pain Extremities: Absent: edema - Labs and Meds Coagulation 07/07/18 07/08/18 Range/Units 16:03 04:26 PT 14.7 14.3 (12.2-14.9) Sec. INR 1.08 1.05 (0.87-1.13) APTT 143.8 H* (24.2-36.6) Sec. CBC 07/07/18 07/08/18 Range/Units 16:03 04:26 WBC 5.1 (4.5-11.0) K/mm3 RBC 4.90 (3.65-5.03) M/mm3 Hgb 13.8 13.5 (11.8-15.2) gm/dl Hct 41.0 40.7 (35.5-45.6) % Plt Count 157 166 (140-440) K/mm3 Lymph # 1.5 (1.2-5.4) K/mm3 [place] # 0.6 (0.0-0.8) K/mm3 Eos # 0.4 (0.0-0.4) K/mm3 Baso # 0.0 (0.0-0.1) K/mm3 Comprehensive Metabolic Panel 07/08/18 Range/Units 04:26 Sodium 141 (137-145) mmol/L Potassium 3.8 (3.6-5.0) mmol/L Chloride 103.7 (98-107) mmol/L Carbon Dioxide 26 (22-30) mmol/L BUN 14 (9-20) mg/dL Creatinine 1.4 (0.8-1.5) mg/dL Glucose 85 (75-100) mg/dL Calcium 8.9 (8.4-10.2) mg/dL - Imaging and Cardiology EKG: report reviewed, image reviewed Echo: pending, report reviewed (Echo done 07/2017 showed EF 15-20%, pseudonormalization, intramural mass on lateral wall of LV measuring 3.58x2.36cm, LA mildly dilated, RV mildly dilated, RA mildly dilated, mass in RA attached to free wall measuring 2.59x2.43cm, mod MR, mod TR, RVSP 38mmHg. ) - EKG Sinus rhythms and dysrhythmias: sinus rhythm Repolarization changes or abnormalities: ST or T wave suggestive of ischemia
--- NOTE | 2018-07-08 13:01 | Cardiac Catherization Report ---
CARDIAC CATHETERIZATION REFERRING PHYSICIAN: Hospitalist service. INDICATION FOR PROCEDURE: The patient is a pleasant 62-year-old -[place] gentleman who presents with chest pain had a markedly abnormal stress test with anterior and anterolateral ischemia referred for left heart catheterization. Risks, benefits, and potential alternatives were explained in length prior to obtaining informed consent. PROCEDURE IN DETAIL: The patient was brought to the label stamper in a postabsorptive state and prepped and draped in sterile fashion. Gabriel's test of the right hand is normal. A 2 mL of 2% lidocaine used to anesthetize the right wrist. A standard 6-German hydrophilic sheath used to cannulate the right radial artery via modified Seldinger technique. All exchanges performed to exchange a J-tip guidewire. JL3.5 catheter used to engage the left main. No dampening or ventricularization. Cineangiography performed in all projections. JR4 catheter was used to cross the aortic valve under fluoroscopic guidance. Left ventriculography performed in 30 GANNON and 30 ROMANIAN projections via hand injections. Catheter flushed. Manual pullback performed with continuous pressure monitoring. Catheter used to engage the right coronary. No dampening or ventricularization. Cineangiography performed in all projections. DATA: Aortic pressure is 130/70, LV pressure is 130, LVP of 12 mmHg. Left ventriculography reveals mild global left hypokinesis with estimated ejection fraction of 45-50%. No evidence of aortic stenosis. The patient remained in normal sinus rhythm throughout the procedure. CORONARY ANATOMY: This is a right dominant system. Interestingly, the right coronary appears to arise from the left coronary cusp. No significant disease in this right dominant anomalous right coronary. There appears to be very short left main or dual ostium. Left circumflex is a small vessel with mild luminal irregularities, but no significant disease. LAD is a large vessel, courses anterior intergroove, wraps around the apex. There is a 95% ulcerated stenosis in the high mid LAD just after the takeoff of a first diagonal, which has significant ostial disease. Given his presentation and stress test findings, this is certainly the culprit vessel. We decided to proceed with PCI. Additional heparin given. Abnormal ACT is confirmed. The patient loaded with aspirin and Effient. EBU 3.5 guide used to engage the LAD selectively. A [place] wire was placed into the diagonal. A [place] wire was placed in the LAD. We direct stented the LAD with a 3.0 x 18 Philipp with excellent angiographic result. We pulled the diagonal wire. The diagonals is mildly jailed. We gave intracoronary nitroglycerin and this improved. Still jailed but it is significantly improved. Intravascular ultrasound was performed. DAVION 3 flow in the diagonal. No chest pain whatsoever. He is chest pain free. We used intravascular ultrasound. Multiple passes were made of the LAD, which revealed a well-apposed and well-expanded stent, no dissection, mild disease in the proximal LAD. No complication. The wire was pulled. Final angiogram reveals excellent result. DAVION 3 flow of the first diagonal jailed ostium, we will treat medically. It is a small vessel of approximately 1.5 mm. I directly supervised the administration of moderate sedation with fentanyl and Versed from 8:04 to 8:45 a.m. CONCLUSIONS: 1. Severe epicardial coronary disease with an ulcerated 95% high mid LAD stenosis. A. Successful IVUS guided PCI with placement of drug-eluting stent ([place] 3.0 x 18) with excellent final angiographic and ultrasonographic results. B. Jailed ostium of first diagonal with DAVION 3 flow, small vessel. Treat medically. 2. 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 We will need a cardiac CT to determine orientation in the future. 3. Mild global left ventricular hypokinesis with estimated ejection fraction of 45% or so. 4. No evidence of aortic stenosis. 5. Normal LVEDP. At this point, continue medical management, optimal medical therapy, dual antiplatelet therapy, statin therapy. He will follow up with us in the office. He needs an outpatient cardiac CT to determine orientation of anomalous right coronary. Standard cardiomyopathy medications. He will follow up with Dr. Jose Hidalgo in the office. JOB# [id number] SBM/NTS
[2018-07-08] MEDS: COREG PO SCH ×2 (15:02→23:04)
[2018-07-08] MEDS: NORVASC PO SCH (15:02)
--- NOTE | 2018-07-08 15:38 | Progress Note ---
Assessment and Plan Assessment and plan: Patient is a 62-year-old -[place] male with history of CHF and hypertension who presented to the ED on account of 1 month hx of mid-sternal chest pain. Patient stated that his pain got worse today, which prompted him to come to the ED for further evaluation. He described it as sharp in character, rated 9/10, constant in duration and non-radiating. No known aggravating or relieving factors. He has associated diaphoresis, dry cough, and nausea with vomiting 1 episode. He denies shortness of breath, palpitation, leg swelling, fever, chills, orthopnea or PND. No headaches, dizziness, syncope or loss of consciousness. No known prior history of stress test. Echo done 07/2017 showed EF 15-20%, pseudonormalization, intramural mass on lateral wall of LV measuring 3.58x2.36cm, LA mildly dilated, RV mildly dilated, RA mildly dilated, mass in RA attached to free wall measuring 2.59x2.43cm, mod MR, mod TR, RVSP 38mmHg Unstable Angina -Positive stress test AND UNDERWENT STENT TO LAD -STOPP HEPARIN, NOW ON effient/asa/statin BB, -JERROD held due to HUSSEIN Hypertensive urgency -On antihypertensives, adjust as needed Chronic systolic heart failure with underlying cardiomyopathy EF of 15-20% -No acute exacerbation -Last echo was in 07/2017, will repeat -On BB, we'll hold his home ACE1 due to renal failure History of intramural mass per echo -Follow up echo pending History of moderate MR/TR -Follow up echo pending CKD stage 3 -Creatinine level about baseline DVT prophylaxis with heparin Anticipate discharge in am plan of care discussed with the patient in detail History Interval history: Patient seen and examined, admitted with chest pain now improved, no shortness of breath at this time. No new complaints post cardiac cath Hospitalist Physical - Physical exam Narrative exam: General appearance: Present: no acute distress, well-nourished - EENT Eyes: Present: PERRL, EOM intact ENT: hearing intact - Neck Neck: Present: supple, normal ROM - Respiratory Respiratory effort: normal Respiratory: bilateral: diminished - Cardiovascular Rhythm: regular Heart Sounds: Present: S1 & S2, systolic murmur - Extremities Extremities: no ischemia, pulses intact, pulses symmetrical Extremity abnormal: edema (decrease) Peripheral Pulses: within normal limits - Abdominal General gastrointestinal: soft, non-tender, non-distended, normal bowel sounds - Integumentary Integumentary: Present: clear, warm, dry, normal turgor - Psychiatric Psychiatric: appropriate mood/affect, intact judgment & insight, cooperative - Neurologic Neurologic: CNII-XII intact, focal deficits, moves all extremities - Allied Health Allied health notes reviewed: nursing - Constitutional Vitals: Temp Pulse Resp BP Pulse Ox 97.9 F 87 20 161/90 95 07/08/18 13:05 07/08/18 13:05 07/08/18 13:05 07/08/18 13:05 07/08/18 13:05 General appearance: Present: no acute distress, well-nourished Results - Labs CBC & Chem 7: 07/09/18 04:54 07/09/18 04:54 Labs: Laboratory Last Values WBC 5.1 K/mm3 (4.5-11.0) 07/08/18 04:26 RBC 4.90 M/mm3 (3.65-5.03) 07/08/18 04:26 Hgb 13.5 gm/dl (11.8-15.2) 07/08/18 04:26 Hct 40.7 % (35.5-45.6) 07/08/18 04:26 MCV 83 fl (84-94) L 07/08/18 04:26 MCH 28 pg (28-32) 07/08/18 04:26 MCHC 33 % (32-34) 07/08/18 04:26 RDW 16.4 % (13.2-15.2) H 07/08/18 04:26 Plt Count 166 K/mm3 (140-440) 07/08/18 04:26 Lymph % (Auto) 28.8 % (13.4-35.0) 07/08/18 04:26 Sac % (Auto) 11.2 % (0.0-7.3) H 07/08/18 04:26 Eos % (Auto) 8.7 % (0.0-4.3) H 07/08/18 04:26 Baso % (Auto) 0.6 % (0.0-1.8) 07/08/18 04:26 Lymph # 1.5 K/mm3 (1.2-5.4) 07/08/18 04:26 Sac # 0.6 K/mm3 (0.0-0.8) 07/08/18 04:26 Eos # 0.4 K/mm3 (0.0-0.4) 07/08/18 04:26 Baso # 0.0 K/mm3 (0.0-0.1) 07/08/18 04:26 Seg Neutrophils % 50.7 % (40.0-70.0) 07/08/18 04:26 Seg Neutrophils # 2.6 K/mm3 (1.8-7.7) 07/08/18 04:26 PT 14.3 Sec. (12.2-14.9) 07/08/18 04:26 INR 1.05 (0.87-1.13) 07/08/18 04:26 APTT 143.8 Sec. (24.2-36.6) H* 07/07/18 16:03 Heparin Anti-Xa Level 0.46 U.I./ml (0.3-0.7) 07/07/18 22:36 Sodium 141 mmol/L (137-145) 07/08/18 04:26 Potassium 3.8 mmol/L (3.6-5.0) 07/08/18 04:26 Chloride 103.7 mmol/L (98-107) 07/08/18 04:26 Carbon Dioxide 26 mmol/L (22-30) 07/08/18 04:26 15 mmol/L 07/08/18 04:26 BUN 14 mg/dL (9-20) 07/08/18 04:26 1.4 mg/dL (0.8-1.5) 07/08/18 04:26 Estimated GFR > 60 ml/min 07/08/18 04:26 10 % 07/08/18 04:26 Glucose 85 mg/dL (75-100) 07/08/18 04:26 POC Glucose 79 (70-105) 07/07/18 16:20 Calcium 8.9 mg/dL (8.4-10.2) 07/08/18 04:26 Magnesium 1.90 mg/dL (1.7-2.3) 07/07/18 04:18 0.40 mg/dL (0.1-1.2) 07/07/18 04:18 < 0.2 mg/dL (0-0.2) 07/07/18 04:18 0.2 mg/dL 07/07/18 04:18 AST 14 units/L (5-40) 07/07/18 04:18 ALT 8 units/L (7-56) 07/07/18 04:18 87 units/L (35-129) 07/07/18 04:18 < 0.010 ng/mL (0.00-0.029) 07/07/18 16:03 NT-Pro-B Natriuret Pep 1112 pg/mL (0-900) H 07/06/18 22:03 7.5 g/dL (6.3-8.2) 07/07/18 04:18 3.8 g/dL (3.9-5) L 07/07/18 04:18 1.0 % 07/07/18 04:18 Triglycerides 109 mg/dL (2-149) 07/07/18 04:18 Cholesterol 229 mg/dL (50-199) H 07/07/18 04:18 182 mg/dL (50-130) H 07/07/18 04:18 34 mg/dL (40-59) L 07/07/18 04:18 6.73 % 07/07/18 04:18 Active Medications - Current Medications Current Medications: Generic Name Dose Route Start Last Admin Trade Name Freq PRN Reason Stop Dose Admin Acetaminophen 650 mg 07/06/18 23:50 Tylenol PO Q4H PRN Pain MILD(1-3)/Fever >100.5/NUNN Amlodipine Besylate 10 mg 07/07/18 10:00 07/08/18 15:02 Norvasc PO 10 mg QDAY SELINA Administration Aspirin 81 mg 07/09/18 10:00 Baby Aspirin PO QDAY SELINA Atorvastatin Calcium 80 mg 07/07/18 22:00 07/07/18 22:00 Lipitor PO 80 mg QHS SELINA Administration Carvedilol 3.125 mg 07/07/18 10:00 07/08/18 15:02 Coreg PO 3.125 mg BID SELINA Administration Hydralazine HCl 10 mg 07/07/18 01:25 07/08/18 05:54 Apresoline IV 10 mg Q4HR PRN Administration Blood Pressure Sodium Chloride 500 mls @ 50 mls/hr 07/08/18 06:00 07/08/18 07:24 Nacl 0.9% 500 Ml IV 07/08/18 15:59 50 mls/hr DIRECT SELINA Administration Morphine Sulfate 4 mg 07/06/18 23:50 07/07/18 02:53 Morphine IV 4 mg Q4H PRN Administration Pain , Severe (7-10) Nitroglycerin 0.4 mg 07/07/18 01:15 Nitrostat SL .Q5MIN PRN Chest Pain Ondansetron HCl 4 mg 07/06/18 23:50 Zofran IV Q8H PRN Nausea And Vomiting Oxycodone/Acetaminophen 1 tab 07/06/18 23:50 Percocet 5/325 PO Q6H PRN Pain, Moderate (4-6) Prasugrel 10 mg 07/09/18 10:00 Effient PO QDAY SELINA Sodium Chloride 10 ml 07/07/18 10:00 07/07/18 22:01 Sodium Chloride Flush Syringe 10 Ml IV 10 ml BID SELINA Administration Sodium Chloride 10 ml 07/06/18 23:50 Sodium Chloride Flush Syringe 10 Ml IV PRN PRN LINE FLUSH
[2018-07-09 06:34] LABS: Basophils % (Auto) 0.5 % (0.0-1.8); Eosinophils # (Auto) 0.4 K/mm3 (0.0-0.4); Eosinophils % (Auto) 8.6 % (0.0-4.3); Hematocrit 39.7 % (35.5-45.6); Hemoglobin 12.8 gm/dl (11.8-15.2); Lymphocytes # (Auto) 1.1 K/mm3 (1.2-5.4); Mean Corpuscular HGB Conc 32 % (32-34); Mean Corpuscular Volume 84 fl (84-94); Monocytes # (Auto) 0.6 K/mm3 (0.0-0.8); Monocytes % (Auto) 12.4 % (0.0-7.3); Platelet Count 151 K/mm3 (140-440); Red Blood Count 4.76 M/mm3 (3.65-5.03); Red Cell Distribution Width 15.7 % (13.2-15.2)
[2018-07-09 06:37] LABS: Creatine Kinase MB 2.5 ng/mL (0.0-4.0)
[2018-07-09 06:43] LABS: BUN/Creatinine Ratio 9; Blood Urea Nitrogen 11 mg/dL (9-20); Calcium 8.8 mg/dL (8.4-10.2); Hemolysis Index 0
--- NOTE | 2018-07-09 08:22 | XRay Report ---
PROCEDURE: XR CHEST 1V AP TECHNIQUE: Chest radiograph single view. HISTORY: post pci COMPARISONS: 07/06/2018 . FINDINGS: No mediastinal shift. Cardiac silhouette is not enlarged. No pneumothorax, effusion, or focal pulmona ry opacity identified. No acute skeletal findings. IMPRESSION: No acute pulmonary finding identified. This document is electronically signed by Rom Simpson MD., July 09 2018 09:20:04 AM ET
--- NOTE | 2018-07-09 09:33 | Discharge Summary ---
Providers - Providers Date of Admission: 07/07/18 12:20 Attending physician: STEVEN FLANAGAN MD 07/07/18 12:19 Consult to Physician [CONS] Routine Comment: Consulting Provider: QUAN DEL ROSARIO Physician Instructions: Reason For Exam: Angina 07/08/18 Consult to Cardiac Rehabilitation [CONS] Routine Reason For Exam: post pci Hospitalization Reason for admission: unstable angina Condition: Stable Hospital course: Patient is a 62-year-old -Mal[place]ian male with history of CHF and hypertension who presented to the ED on account of 1 month hx of mid-sternal ch est pain. Patient stated that his pain got worse today, which prompted him to come to the ED for further evaluation. He described it as sharp in character, rated 9/10, constant in duration and non-radiating. No known aggravating or relieving factors. He has associated diaphoresis, dry cough, and nausea with vomiting 1 episode. He denies shortness of breath, palpitation, leg swelling, fever, chills, orthopnea or PND. No headaches, dizziness, syncope or loss of consciousness. No known prior history of stress test. Echo done 07/2017 showed EF 15-20%, pseudonormalization, intramural mass on lateral wall of LV measuring 3.58x2.36cm, LA mildly dilated, RV mildly dilated, RA mildly dilated, mass in RA attached to free wall measuring 2.59x2.43cm, mod MR, mod TR, RVSP 38mmHg Patient of admission underwent a stress test which was positive and catheterization was done following heparin drip. PCI to LAD was done as documented in the clinic catheterization report. Patient was advised about medication compliance and management. At this point I held lisinopril and advised the patient follow up with dials inspector and primary care physician to ensure no return off acute kidney injury prior to restarting this medication. Based on his underlying cardiomyopathy. Discharge diagnoses Unstable Angina-status post PCI to LAD Abnormal Stress test Hypertensive urgency Chronic systolic heart failure with underlying cardiomyopathy EF of 15-20% intramural mass per echo moderate MR/TR HUSSEIN ON CKD stage 3- secondary to vasomotor nephropathy Disposition: TO HOME OR SELFCARE Time spent for discharge: 35 mins Core Measure Documentation - Palliative Care Palliative Care/ Comfort Measures: Not Applicable - Core Measures Any of the following diagnoses?: none - VTE Discharge Requirements Deep Vein Thrombosis/Pulmonary Embolism Present on Admission: No Exam - Physical Exam Narrative exam: General appearance: Present: no acute distress, well-nourished - EENT Eyes: Present: PERRL, EOM intact ENT: hearing intact - Neck Neck: Present: supple, normal ROM - Respiratory Respiratory effort: normal Respiratory: bilateral: diminished - Cardiovascular Rhythm: regular Heart Sounds: Present: S1 & S2, systolic murmur - Extremities Extremities: no ischemia, pulses intact, pulses symmetrical Extremity abnormal: edema (decrease) Peripheral Pulses: within normal limits - Abdominal General gastrointestinal: soft, non-tender, non-distended, normal bowel sounds - Integumentary Integumentary: Present: clear, warm, dry, normal turgor - Psychiatric Psychiatric: appropriate mood/affect, intact judgment & insight, cooperative - Neurologic Neurologic: CNII-XII intact, focal deficits, moves all extremities - Allied Health Allied health notes reviewed: nursing - Constitutional Vitals: Temp Pulse Resp BP Pulse Ox 97.7 F 64 18 167/93 95 07/09/18 05:23 07/09/18 05:23 07/09/18 05:23 07/09/18 05:23 07/09/18 05:23 Plan Activity: advance as tolerated, fall precautions Diet: low fat Special Instructions: restrict fluid intake to (1200cc/day), record daily BP diary Follow up with: JANIS HECTOR MD [Staff Physician] - 3-5 Days QUAN DEL ROSARIO MD [Staff Physician] - 7 Days SHILA ANDERSON MD [Staff Physician] - 7 Days Prescriptions: AtorvaSTATin [Lipitor] 80 mg PO QHS #60 tablet Aspirin [Aspirin BABY CHEW TAB] 81 mg PO QDAY #30 tab.chew Prasugrel [Effient] 10 mg PO QDAY #30 tablet Nitroglycerin [Nitrostat] 0.4 mg SL .Q5MIN PRN #30 tablet PRN Reason: Chest Pain amLODIPine [Norvasc] 10 mg PO QDAY #30 tablet
--- NOTE | 2018-07-09 09:59 | Progress Note ---
Assessment and Plan see cath report - s/p pci of lad w/ mohsen (well tolerated) effient/asa/statin cont bb hold stephan due to recent fay clinically stable and cp-free ok for d/c today I spent a sig amount of time discussing importance of DAPT compliance with effient and asa f/u with Dr. Devyn Hidalgo in office - Patient Problems (1) Abnormal stress test Current Visit: Yes Status: Acute (2) CKD (chronic kidney disease) Current Visit: Yes Status: Chronic (3) Cardiomyopathy Current Visit: Yes Status: Chronic (4) HTN (hypertension) Current Visit: Yes Status: Chronic (5) Hyperlipidemia Current Visit: Yes Status: Chronic (6) Chronic systolic (congestive) heart failure Current Visit: No Status: Acute Subjective Date of service: 07/09/18 Interval history: feel much better today Objective Vital Signs Temp Pulse Resp BP BP Pulse Ox 07/09/18 08:20 97.9 F 60 18 166/105 97 07/09/18 05:23 97.7 F 64 18 167/93 95 07/08/18 23:21 97.6 F 65 18 184/105 95 07/08/18 20:45 68 07/08/18 19:48 98.1 F 62 18 172/94 96 07/08/18 16:31 98.4 F 68 18 148/83 96 07/08/18 16:26 69 148/83 97 07/08/18 13:05 97.9 F 87 20 161/90 95 07/08/18 12:56 98.0 F 18 07/08/18 12:55 98.0 F 66 18 180/98 99 07/08/18 12:30 63 12 136/78 97 07/08/18 12:15 57 L 15 139/91 98 07/08/18 12:00 57 L 17 134/88 99 07/08/18 11:45 63 20 130/90 98 07/08/18 11:30 78 19 147/93 98 07/08/18 11:15 77 20 136/78 98 07/08/18 11:00 69 13 127/76 98 07/08/18 10:31 63 12 122/77 98 07/08/18 09:59 72 12 144/80 96 - Physical Examination HEENT: Positive: PERRL, Normocephaly, Mucus Membranes Moist Neck: Positive: neck supple, trachea midline Neuro: Positive: Grossly Intact Abdomen: Positive: Soft. Negative: Tender Skin: Negative: Rash, Wound Musculoskeletal: No Pain Extremities: Absent: edema - Labs and Meds Cardiac Enzymes 07/09/18 Range/Units 04:54 CK-MB (CK-2) 2.5 (0.0-4.0) ng/mL CBC 07/09/18 Range/Units 04:54 WBC 4.9 (4.5-11.0) K/mm3 RBC 4.76 (3.65-5.03) M/mm3 Hgb 12.8 (11.8-15.2) gm/dl Hct 39.7 (35.5-45.6) % Plt Count 151 (140-440) K/mm3 Lymph # 1.1 L (1.2-5.4) K/mm3 [place] # 0.6 (0.0-0.8) K/mm3 Eos # 0.4 (0.0-0.4) K/mm3 Baso # 0.0 (0.0-0.1) K/mm3 Comprehensive Metabolic Panel 07/09/18 Range/Units 04:54 Sodium 141 (137-145) mmol/L Potassium 3.8 (3.6-5.0) mmol/L Chloride 104.8 (98-107) mmol/L Carbon Dioxide 26 (22-30) mmol/L BUN 11 (9-20) mg/dL Creatinine 1.2 (0.8-1.5) mg/dL Glucose 85 (75-100) mg/dL Calcium 8.8 (8.4-10.2) mg/dL - Imaging and Cardiology EKG: report reviewed, image reviewed Echo: pending, report reviewed (Echo done 07/2017 showed EF 15-20%, pseudonormalization, intramural mass on lateral wall of LV measuring 3.58x2.36cm, LA mildly dilated, RV mildly dilated, RA mildly dilated, mass in RA attached to free wall measuring 2.59x2.43cm, mod MR, mod TR, RVSP 38mmHg. ) - EKG Sinus rhythms and dysrhythmias: sinus rhythm Repolarization changes or abnormalities: ST or T wave suggestive of ischemia
[2018-07-09] MEDS ORDERED: EFFIENT PO SCH (10:00)
[2018-07-09] MEDS ORDERED: BABY ASPIRIN PO SCH (10:00)
[2018-07-09] MEDS: NORVASC PO SCH (10:59)
[2018-07-09] MEDS: COREG PO SCH (11:00)
[2018-07-09] MEDS: SODIUM CHLORIDE FLUSH SYRINGE 10 ML IV SCH (11:01)
[2018-07-09 13:37] VITALS: BP 158/89
== END 2018-07-09 17:29 | disposition home or self-care (01) | DRG 246 ==
LOC: ED 21:45 → 4A 23:51 → OBSVTOIN 07-07 12:20
PROVIDERS: ADMIT Internal Medicine; ATTEND Internal Medicine
PROC: 027034Z Dilation of Coronary Artery, One Artery with Drug-eluting Intraluminal Device, Percutaneous Approach (ICD-10-PCS; principal; 2018-07-08)
PROC: 4A023N7 Measurement of Cardiac Sampling and Pressure, Left Heart, Percutaneous Approach (ICD-10-PCS; 2018-07-08)
PROC: B2111ZZ Fluoroscopy of Multiple Coronary Arteries using Low Osmolar Contrast (ICD-10-PCS; 2018-07-08)
PROC: B2151ZZ Fluoroscopy of Left Heart using Low Osmolar Contrast (ICD-10-PCS; 2018-07-08)
PROC: B241ZZ3 Ultrasonography of Multiple Coronary Arteries, Intravascular (ICD-10-PCS; 2018-07-08)
DX: I20.0 Unstable angina (principal); N17.0 Acute kidney failure with tubular necrosis; I50.22 Chronic systolic (congestive) heart failure; I13.0 Hypertensive heart and chronic kidney disease with heart failure and stage 1 through stage 4 chronic kidney disease, or unspecified chronic kidney disease; I42.9 Cardiomyopathy, unspecified; I16.0 Hypertensive urgency; N18.3 Chronic kidney disease, stage 3 (moderate); E78.5 Hyperlipidemia, unspecified; I87.8 Other specified disorders of veins; Z85.46 Personal history of malignant neoplasm of prostate; Z90.49 Acquired absence of other specified parts of digestive tract; Z79.899 Other long term (current) drug therapy
CPT/HCPCS: 36415; 71045; 78452; 80048; 80061; 80076; 82550; 82553; 82962; 83735; 83880; 84484; 85014; 85018; 85025; 85049; 85347; 85520; 85610; 85730; 92928; 92978; 93005; 93010; 93017; 93306; 93458; G0378; A9270-GY; A9502; C1753; C1769; C1874; C1887; C1894; C9600; J0360; J1644; J2250; J2270; J2785; J3010; J7040; Q9967

== ENCOUNTER 2018-11-21 05:22 | Observation (INO) | payer OTHER ==
[2018-11-21] MEDS ORDERED: LABETALOL IV ONE (06:24)
[2018-11-21] MEDS ORDERED: DUONEB *Not for PRN Use IH ONE (06:24)
[2018-11-21] MEDS ORDERED: SOLU-Medrol IV ONE (06:25)
--- NOTE | 2018-11-21 06:44 | XRay Report ---
CHEST 1 VIEW INDICATION / CLINICAL INFORMATION: Dyspnea. COMPARISON: 07/09/2018 FINDINGS: SUPPORT DEVICES: None. HEART / MEDIASTINUM: No significant abnormality. LUNGS / PLEURA: No significant pulmonary or pleural abnormality. No pneumothorax. ADDITIONAL FINDINGS: No significant additional findings. IMPRESSION: 1. No acute findings. Signer Name: Tani Godoy MD Signed: 11/21/2018 6:40 AM Workstation Name: [id number]
[2018-11-21 07:05] LABS: Basophils % (Auto) 0.6 % (0.0-1.8); Eosinophils # (Auto) 0.8 K/mm3 (0.0-0.4); Eosinophils % (Auto) 14.3 % (0.0-4.3); Hematocrit 41.7 % (35.5-45.6); Hemoglobin 13.6 gm/dl (11.8-15.2); Lymphocytes # (Auto) 1.1 K/mm3 (1.2-5.4); Lymphocytes % (Auto) 19.7 % (13.4-35.0); Mean Corpuscular HGB Conc 33 % (32-34); Mean Corpuscular Volume 83 fl (84-94); Monocytes # (Auto) 0.5 K/mm3 (0.0-0.8); Monocytes % (Auto) 9.4 % (0.0-7.3); Platelet Count 190 K/mm3 (140-440); Red Blood Count 5.04 M/mm3 (3.65-5.03); Red Cell Distribution Width 16.3 % (13.2-15.2)
--- NOTE | 2018-11-21 07:09 | Emergency Department Report ---
ED General Adult HPI - General Chief complaint: Dyspnea/Respdistress Stated complaint: ODESSA Time Seen by Provider: 11/21/18 06:12 Source: patient, EMS Mode of arrival: Stretcher Limitations: Physical Limitation - History of Present Illness Initial comments: Is a 63-year-old man who is a poor historian. He called EMS for shortness of breath. He states he is wheezing. He does not use home. Apparently has a history of a low EF, PCI and right atrial mass as well as chronic kidney disease. He states that he is pretty good about taking his medicines. Was found to be hypertensive in the field. He was given nitroglycerin. He was given an albuterol neb. He states that the neb helped him. Does not complain of chest pain per se. However he took his own nitroglycerin for the first time since his PCI prior to arrival. Likewise denies chest pain pressure or tightness prior to arrival. Had occasional cough no fever or chills. He's had no pleuritic-type symptoms. Per previous records: Hospital course: Patient is a 62-year-old -[place] male with history of CHF and hypertension who presented to the ED on account of 1 month hx of mid-sternal chest pain. Patient stated that his pain got worse today, which prompted him to come to the ED for further evaluation. He described it as sharp in character, rated 9/10, constant in duration and non-radiating. No known aggravating or relieving factors. He has associated diaphoresis, dry cough, and nausea with vomiting 1 episode. He denies shortness of breath, palpitation, leg swelling, fever, chills, orthopnea or PND. No headaches, dizziness, syncope or loss of consciousness. No known prior history of stress test. Echo done 07/2017 showed EF 15-20%, pseudonormalization, intramural mass on lateral wall of LV measuring 3.58x2.36cm, LA mildly dilated, RV mildly dilated, RA mildly dilated, mass in RA attached to free wall measuring 2.59x2.43cm, mod MR, mod TR, RVSP 38mmHg Patient of admission underwent a stress test which was positive and catheterization was done following heparin drip. PCI to LAD was done as documented in the clinic catheterization report. Patient was advised about medication compliance and management. At this point I held lisinopril and advised the patient follow up with learning engineer and primary care physician to ensure no return off acute kidney injury prior to restarting this medication. Based on his underlying cardiomyopathy. Discharge diagnoses Unstable Angina-status post PCI to LAD Abnormal Stress test Hypertensive urgency Chronic systolic heart failure with underlying cardiomyopathy EF of 15-20% intramural mass per echo moderate MR/TR HUSSEIN ON CKD stage 3- secondary to vasomotor nephropathy -: hour(s) Severity scale (0 -10): 0 Associated Symptoms: denies other symptoms, shortness of breath - Related Data Home Medications Medication Instructions Recorded Confirmed Last Taken Furosemide [Lasix TAB] 40 mg PO BID 07/06/18 07/06/18 07/06/18 Previous Rx's Medication Instructions Recorded Last Taken Type Carvedilol [Coreg] 3.125 mg PO BID #30 tablet 08/04/17 07/06/18 Rx Aspirin [Aspirin BABY CHEW TAB] 81 mg PO QDAY #30 tab.chew 07/09/18 Unknown Rx AtorvaSTATin [Lipitor] 80 mg PO QHS #60 tablet 07/09/18 Unknown Rx Nitroglycerin [Nitrostat] 0.4 mg SL .Q5MIN PRN #30 tablet 07/09/18 Unknown Rx Prasugrel [Effient] 10 mg PO QDAY #30 tablet 07/09/18 Unknown Rx amLODIPine [Norvasc] 10 mg PO QDAY #30 tablet 07/09/18 Unknown Rx Allergies Allergy/AdvReac Type Severity Reaction Status Date / Time No Known Allergies Allergy Verified 08/02/17 22:50 ED Review of Systems ROS: Stated complaint: ODESSA Other details as noted in HPI Constitutional: denies: chills, fever Eyes: denies: eye pain, eye discharge, vision change ENT: denies: ear pain, throat pain Respiratory: cough (occasional), shortness of breath, wheezing Cardiovascular: denies: chest pain, palpitations Endocrine: no symptoms reported Gastrointestinal: denies: abdominal pain, nausea, diarrhea Genitourinary: denies: urgency, dysuria Musculoskeletal: denies: back pain, joint swelling, arthralgia Skin: denies: rash, lesions Neurological: denies: headache, weakness, paresthesias Psychiatric: denies: anxiety, depression Hematological/Lymphatic: denies: easy bleeding, easy bruising ED Past Medical Hx - Past Medical History Previous Medical History?: Yes Hx Hypertension: Yes Hx Congestive Heart Failure: Yes (systolic ) Hx Diabetes: No Hx Asthma: No Hx COPD: No Additional medical history: hx of b/l leg cellulitis, b/l chronic venous stasis ulcers - Surgical History Past Surgical History?: Yes Hx Appendectomy: Yes Additional Surgical History: stent x 1 - Social History Smoking Status: Never Smoker Substance Use Type: None - Medications Home Medications: Home Medications Medication Instructions Recorded Confirmed Last Taken Type Carvedilol [Coreg] 3.125 mg PO BID #30 tablet 08/04/17 07/08/18 07/06/18 Rx Furosemide [Lasix TAB] 40 mg PO BID 07/06/18 07/06/18 07/06/18 History Aspirin [Aspirin BABY CHEW TAB] 81 mg PO QDAY #30 tab.chew 07/09/18 Unknown Rx AtorvaSTATin [Lipitor] 80 mg PO QHS #60 tablet 07/09/18 Unknown Rx Nitroglycerin [Nitrostat] 0.4 mg SL .Q5MIN PRN #30 tablet 07/09/18 Unknown Rx Prasugrel [Effient] 10 mg PO QDAY #30 tablet 07/09/18 Unknown Rx amLODIPine [Norvasc] 10 mg PO QDAY #30 tablet 07/09/18 Unknown Rx ED Physical Exam - General Limitations: No Limitations General appearance: alert, in no apparent distress - Head Head exam: Present: atraumatic, normocephalic - Eye Eye exam: Present: normal appearance. Absent: scleral icterus - ENT ENT exam: Present: mucous membranes moist - Neck Neck exam: Present: normal inspection - Respiratory Respiratory exam: Present: wheezes (bilateral). Absent: respiratory distress, accessory muscle use, decreased breath sounds, prolonged expiratory - Cardiovascular Cardiovascular Exam: Present: regular rate, normal rhythm. Absent: systolic mur mur, diastolic murmur, rubs, gallop - GI/Abdominal GI/Abdominal exam: Present: soft, normal bowel sounds. Absent: distended, tenderness, guarding, rebound, rigid - Rectal Rectal exam: Present: deferred - Extremities Exam Extremities exam: Present: normal inspection - Back Exam Back exam: Present: normal inspection - Neurological Exam Neurological exam: Present: alert, oriented X3, CN II-XII intact. Absent: motor sensory deficit - Psychiatric Psychiatric exam: Present: normal affect, normal mood - Skin Skin exam: Present: warm, dry, intact, normal color. Absent: rash ED Course Vital Signs 11/21/18 11/21/18 11/21/18 05:35 06:33 06:40 Temperature 98.2 F Pulse Rate 78 56 L Pulse Rate [ 60 Anterior Bilateral Throughout] Respiratory 16 13 Rate Respiratory 16 Rate [Anterior Bilateral Throughout] Blood Pressure 178/111 172/102 Blood Pressure 178/111 [Right] O2 Sat by Pulse 98 99 Oximetry 11/21/18 11/21/18 11/21/18 06:45 06:48 07:42 Temperature Pulse Rate 57 L 57 L 60 Pulse Rate [ Anterior Bilateral Throughout] Respiratory 11 L 12 Rate Respiratory Rate [Anterior Bilateral Throughout] Blood Pressure 172/102 172/102 Blood Pressure 165/92 [Right] O2 Sat by Pulse 100 Oximetry 11/21/18 08:37 Temperature Pulse Rate 54 L Pulse Rate [ Anterior Bilateral Throughout] Respiratory 14 Rate Respiratory Rate [Anterior Bilateral Throughout] Blood Pressure Blood Pressure 161/94 [Right] O2 Sat by Pulse 98 Oximetry - Reevaluation(s) Reevaluation #1: Some persistent wheeze and cough. Poorly controlled hypertension. We'll arrange for admission to the hospitalist service. 11/21/18 08:54 ED Medical Decision Making - Lab Data Result diagrams: 11/21/18 06:44 11/21/18 06:44 Laboratory Results - last 24 hr 11/21/18 11/21/18 11/21/18 06:44 06:44 06:44 WBC 5.5 RBC 5.04 H Hgb 13.6 Hct 41.7 MCV 83 L MCH 27 L MCHC 33 RDW 16.3 H Plt Count 190 Lymph % (Auto) 19.7 [place] % (Auto) 9.4 H Eos % (Auto) 14.3 H Baso % (Auto) 0.6 Lymph # 1.1 L [place] # 0.5 Eos # 0.8 H Baso # 0.0 Seg Neutrophils % 56.0 Seg Neutrophils # 3.1 PT 14.2 INR 1.13 APTT 30.5 Sodium 144 Potassium 4.6 Chloride 103.9 Carbon Dioxide 26 Anion Gap 19 BUN 26 H Creatinine 1.6 H Estimated GFR 53 BUN/Creatinine Ratio 16 Glucose 91 Lactic Acid Calcium 9.3 Magnesium 2.20 Total Creatine Kinase 159 CK-MB (CK-2) 1.7 CK-MB (CK-2) Rel Index 1.0 Troponin T < 0.010 10/14/19 06:44 WBC RBC Hgb Hct MCV MCH MCHC RDW Plt Count Lymph % (Auto) [place] % (Auto) Eos % (Auto) Baso % (Auto) Lymph # [place] # Eos # Baso # Seg Neutrophils % Seg Neutrophils # PT INR APTT Sodium Potassium Chloride Carbon Dioxide Anion Gap BUN Creatinine Estimated GFR BUN/Creatinine Ratio Glucose Lactic Acid 0.70 Calcium Magnesium Total Creatine Kinase CK-MB (CK-2) CK-MB (CK-2) Rel Index Troponin T - EKG Data -: EKG Interpreted by Me EKG shows normal: sinus rhythm, axis, intervals, QRS complexes, ST-T waves Rate: tachycardia - EKG Data Interpretation: other (nonspecific inferolateral T-wave inversions, QS in V2) - Radiology Data Radiology results: report reviewed (no acute process), image reviewed Critical care attestation.: If time is entered above; I have spent that time in minutes in the direct care of this critically ill patient, excluding procedure time. ED Disposition Clinical Impression: Reactive airways dysfunction syndrome, Poorly-controlled hypertension Coronary artery disease Qualifiers: Coronary Disease-Associated Artery/Lesion type: unspecified vessel or lesion type [place] vs. transplanted heart: [place] heart Associated angina: without angina Qualified Code(s): I25.10 - Atherosclerotic heart disease of [place] coronary artery without angina pectoris Disposition: OP ADMIT IP TO THIS HOSP Is pt being admited?: Yes Does the pt Need Aspirin: Yes Condition: Stable Time of Disposition: 08:55
[2018-11-21 07:15] LABS: INR 1.13 (0.87-1.13)
[2018-11-21 07:16] LABS: Partial Thromboplastin Time 30.5 Sec. (24.2-36.6)
[2018-11-21 07:23] LABS: Creatine Kinase MB 1.7 ng/mL (0.0-4.0)
[2018-11-21 07:26] LABS: BUN/Creatinine Ratio 16; Blood Urea Nitrogen 26 mg/dL (9-20); Calcium 9.3 mg/dL (8.4-10.2); Hemolysis Index 0
[2018-11-21] MEDS ORDERED: ASPIRIN PO ONE (08:56)
[2018-11-21] MEDS ORDERED: NITRO-BID 2% TP ONE (09:18)
--- NOTE | 2018-11-21 10:10 | History and Physical Report ---
History of Present Illness Date of examination: 11/21/18 Date of admission: 11/21/18 09:16 Chief complaint: Chest pain with SOB History of present illness: 63-year-old man who is a poor historian with past medical history of CHF, intracardiac mass, hypertension, hyperlipidemia, COPD. He called EMS for shortness of breath and chest pain. He states he was having symptoms of cold, nasal colonization and cough for last 2 days. Last night he experienced chest pain and took NTG and after that he started to have wheezing and was feeling SOB. He does not use home nebulizer. He states that he is compliant about taking his medicines. Patient called EMS and Was found to be hypertensive in the field. He was given nitroglycerin and an albuterol neb. He states that he was feeling better after nebulizer treatment. Does not complain of chest pain now, denies chest pain pressure or tightness following arrival to ER. His initial troponin in the ER was normal. Patient continued to have wheezing despite nebulizer breathing treatment. Medical service has been consulted to admit the patient for further evaluation and management. Past History Past Medical History: heart failure, hypertension, hyperlipidemia, renal dora lure, other (prostate cancer, history of intramural mass, chronic venous stasis ) Past Surgical History: cardiac cath with PCI on 06/26, appendectomy, Other (left hand surgery, prostatectomy) Social history: alcohol abuse (patient is an ex-alcohol abuser, he drank for more than 15 years but quit in 1984. He denies tobacco or illicit drug use) Family history: other (mother from heart attack at 63 years old. Sister from heart attack in her 50's) Review of System: Constitutional: no fever, no chills, no weight loss Ears, eyes, nose, mouth and throat: no nasal congestion, no nasal discharge, no sinus pressure, no vision change, no red eye. Neck: No neck pain or rigidity. Cardiovascular: No chest pain, no orthopnea, no palpitations, no leg swelling Respiratory:+ shortness of breath, no cough, no congestion, no wheezing Gastrointestinal: no abdominal pain, no nausea, no vomiting Genitourinary : no dysuria, no hematuria Musculoskeletal: no joint swelling or muscle ache Integumentary: no rash, no pruritis Neurological: no parathesias, no numbness, no tingling Endocrine: no cold or heat intolerance, no polyuria or polydipsia Hematologic/Lymphatic: no easy bruising, no easy bleeding, no gland swelling Allergic/Immunologic: no urticaria, no angioedema. Medications and Allergies Allergies Allergy/AdvReac Type Severity Reaction Status Date / Time No Known Allergies Allergy Verified 08/02/17 22:50 Home Medications Medication Instructions Recorded Confirmed Last Taken Type Furosemide [Lasix TAB] 40 mg PO QDAY 07/06/18 11/21/18 07/06/18 History Aspirin [Aspirin BABY CHEW TAB] 81 mg PO QDAY #30 tab.chew 07/09/18 11/21/18 Unknown Rx Nitroglycerin [Nitrostat] 0.4 mg SL .Q5MIN PRN #30 tablet 07/09/18 11/21/18 Unknown Rx Prasugrel [Effient] 10 mg PO QDAY #30 tablet 07/09/18 11/21/18 Unknown Rx Atorvastatin [Lipitor Tab] 80 mg PO QHS 11/21/18 11/21/18 Unknown History Carvedilol [Coreg] 25 mg PO BIDWM 11/21/18 11/21/18 Unknown History ISOSORBIDE MONOnitrate [Imdur ER] 30 mg PO DAILY 11/21/18 11/21/18 Unknown History Lisinopril [Zestril] 20 mg PO QDAY 11/21/18 11/21/18 Unknown History amLODIPine [Norvasc] 10 mg PO DAILY 11/21/18 11/21/18 Unknown History Exam - Physical Exam Narrative exam: GENERAL: well-developed and well-nourished -[place] male lying on bed appeared to be in no discomfort. HEENT: Normocephalic. Atraumatic. No conjunctival congestion or icterus. Patient has moist mucous membranes. NECK: Supple. Trachea midline. CHEST/LUNGS: Positive wheezes auscultated bilaterally, breathing nonlabored. No crackles or rhonchi. HEART/CARDIOVASCULAR: Regular in rate and rhythm. S1 and S2 positive. ABDOMEN: Abdomen is soft, nontender. Patient has normal bowel sounds. SKIN: There is no rash. Warm and dry. NEURO: No focal motor deficit. Follows command. MUSCULOSKELETAL: No joint effusion or tenderness. EXTRIMITY: No edema, no cyanosis or clubbing. PSYCH: Cooperative. - Constitutional Vitals: Temp Pulse Resp BP Pulse Ox 98.2 F 55 L 18 151/92 98 11/21/18 05:35 11/21/18 10:01 11/21/18 10:01 11/21/18 10:01 11/21/18 10:01 Results - Labs CBC & Chem 7: 11/21/18 06:44 11/22/18 04:50 Labs: Abnormal lab results 11/21/18 11/21/18 Range/Units 06:44 06:44 RBC 5.04 H (3.65-5.03) M/mm3 MCV 83 L (84-94) fl MCH 27 L (28-32) pg RDW 16.3 H (13.2-15.2) % [place] % (Auto) 9.4 H (0.0-7.3) % Eos % (Auto) 14.3 H (0.0-4.3) % Lymph # 1.1 L (1.2-5.4) K/mm3 Eos # 0.8 H (0.0-0.4) K/mm3 BUN 26 H (9-20) mg/dL Creatinine 1.6 H (0.8-1.5) mg/dL Assessment and Plan Chest pain likely atypical -On chest pain protocol to rule out ACS -elevated d-dimer - will do VQ scan - had cardiac cath on 06/26 with PCI to LAD - negative trop, will consult cardiology - cont asp. statin Upper respiratory tract infection - We'll place the patient on Zithromax, and an nebs as needed Hypertension -On antihypertensives, adjust as needed Chronic systolic heart failure with EF of 40-45% -appears compensated congestive x-ray -Last echo was in 06/2018, will repeat -On BB, ACE1 and lasix - no edema on clinical exam and on CXR CAD with h/o PCI - cont aspirin, effient, statin History of intramural mass per echo -Follow up outpt CKD stage 3 -Creatinine level about baseline DVT prophylaxis with heparin Disposition: Patient will be placed in observation status pending further evaluation Time spent: 38 minutes
[2018-11-21] MEDS ORDERED: NITROSTAT SL PRN (10:12)
[2018-11-21] MEDS ORDERED: LASIX PO SCH (11:00)
[2018-11-21] MEDS: EFFIENT PO SCH (11:48)
[2018-11-21] MEDS: ZESTRIL PO SCH (11:49)
[2018-11-21] MEDS: COREG PO SCH ×2 (11:50→21:39)
[2018-11-21] MEDS: LASIX PO SCH (11:50)
--- NOTE | 2018-11-21 12:42 | Nuclear Medicine Report ---
NUCLEAR MEDICINE VENTILATION/PERFUSION LUNG SCAN INDICATION / CLINICAL INFORMATION: Shortness of breath. TECHNIQUE: 24.4 mCi of Xe-133 were given by inhalation. 4.5 mCi of Tc-99m MAA were given by IV. COMPARISON: Chest radiograph dated 11/21/2018. FINDINGS: VENTILATION: There is mild to moderate air trapping bilaterally suggesting mild obstructive pulmonary disease. PERFUSION: No significant perfusion defects. ADDITIONAL FINDINGS: None. IMPRESSION: Low probability for pulmonary embolism. Signer Name: Michael Thayer Jr, MD Signed: 11/21/2018 12:38 PM Workstation Name: [id number]
--- NOTE | 2018-11-21 14:31 | Consultation ---
History of Present Illness Consult date: 11/21/18 Requesting physician: RAJENDRA BRANDON Consult reason: chest pain History of present illness: The pt is a 62 YO male with a past medical history of CAD s/p PCI, I/CMP, HFrEF, renal insufficiency, HTN, HLP, CKD, LV mass, RA mass. He has been seen by our practice on a prior hospitalization. He is followed by [facility]. He presented with c/o SOB since yesterday. Pt states he has been sick at home with the common cold (dry cough, nasal congestion and occasional wheezing). He developed SOB yesterday and decided to seek medical attention. Cardiology has been consulted for evaluation of chest pain, although pt denies any occurrence of chest pain. Pt denies any palpitations, n/v, diaphoresis, dizziness or syncop e. 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 Echo done 07/2017 showed EF 15-20%, pseudonormalization, intramural mass on lateral wall of LV measuring 3.58x2.36cm, LA mildly dilated, RV mildly dilated, RA mildly dilated, mass in RA attached to free wall measuring 2.59x2.43cm, mod MR, mod TR, RVSP 38mmHg. Echo done 07/07/2018 showed EF 40-45%, impaired relaxation, basal inferior, mid anteroseptal, mid inferoseptal and apical wall segments hypokinetic. Past History Past Medical History: CAD, heart failure, hypertension, hyperlipidemia Medications and Allergies Allergies Allergy/AdvReac Type Severity Reaction Status Date / Time No Known Allergies Allergy Verified 08/02/17 22:50 Home Medications Medication Instructions Recorded Confirmed Last Taken Type Furosemide [Lasix TAB] 40 mg PO QDAY 07/06/18 11/21/18 07/06/18 History Aspirin [Aspirin BABY CHEW TAB] 81 mg PO QDAY #30 tab.chew 07/09/18 11/21/18 Unknown Rx Nitroglycerin [Nitrostat] 0.4 mg SL .Q5MIN PRN #30 tablet 07/09/18 11/21/18 Unknown Rx Prasugrel [Effient] 10 mg PO QDAY #30 tablet 07/09/18 11/21/18 Unknown Rx Atorvastatin [Lipitor Tab] 80 mg PO QHS 11/21/18 11/21/18 Unknown History Carvedilol [Coreg] 25 mg PO BIDWM 11/21/18 11/21/18 Unknown History ISOSORBIDE MONOnitrate [Imdur ER] 30 mg PO DAILY 11/21/18 11/21/18 Unknown History Lisinopril [Zestril] 20 mg PO QDAY 11/21/18 11/21/18 Unknown History amLODIPine [Norvasc] 10 mg PO DAILY 11/21/18 11/21/18 Unknown History Active Meds: Active Medications Albuterol/Ipratropium (Duoneb *Not For Prn Use*) 1 ampul IH Q6HRT [facility] Amlodipine Besylate (Norvasc) 10 mg PO QDAY [facility] Last Admin: 11/21/18 11:49 Dose: 10 mg Documented by: Aspirin (Baby Aspirin) 81 mg PO QDAY [facility] Atorvastatin Calcium (Lipitor) 80 mg PO QHS [facility] Carvedilol (Coreg) 3.125 mg PO BID [facility] Last Admin: 11/21/18 11:50 Dose: 3.125 mg Documented by: Furosemide (Lasix) 40 mg PO DAILY@0600 [facility] Last Admin: 11/21/18 11:50 Dose: 40 mg Documented by: Heparin Sodium (Porcine) (Heparin) 5,000 unit SUB-Q Q12HR [facility] Lisinopril (Zestril) 20 mg PO DAILY [facility] Last Admin: 11/21/18 11:49 Dose: 20 mg Documented by: Nitroglycerin (Nitrostat) 0.4 mg SL .Q5MIN PRN PRN Reason: Chest Pain Prasugrel (Effient) 10 mg PO QDAY [facility] Last Admin: 11/21/18 11:48 Dose: 10 mg Documented by: Review of Systems Constitutional: no weight loss, no weight gain, no fever, no chills, no sweats Ears, nose, mouth and throat: nasal congestion, no ear pain, no nose pain, no sinus pressure, no sinus pain Cardiovascular: shortness of breath, no chest pain, no orthopnea, no palpitations, no rapid/irregular heart beat, no edema, no syncope, no lightheadedness, no dyspnea on exertion, no paroxysmal nocturnal dyspnea, no high blood pressure, no leg edema Respiratory: cough, shortness of breath, congestion, wheezing, no cough with sputum, no dyspnea on exertion, no pain on inspiration Gastrointestinal: no abdominal pain, no nausea, no vomiting, no diarrhea, no constipation, no change in bowel habits Genitourinary Male: no dysuria, no hematuria, no flank pain, no discharge, no urinary frequency, no urinary hesitancy Musculoskeletal: no neck stiffness, no neck pain, no shooting arm pain, no arm numbness/tingling, no low back pain, no shooting leg pain Integumentary: no rash, no pruritis, no redness, no sores, no wounds Neurological: no head injury, no paralysis, no weakness, no parathesias, no numbness, no tingling, no seizures, no syncope Psychiatric: no anxiety Endocrine: no cold intolerance, no heat intolerance Hematologic/Lymphatic: no easy bruising, no easy bleeding Allergic/Immunologic: no urticaria, no wheezing Physical Examination Vital Signs Temp Pulse Resp BP Pulse Ox 98.1 F 78 18 178/111 99 11/21/18 05:35 11/21/18 05:35 11/21/18 05:35 11/21/18 05:35 11/21/18 05:35 General appearance: no acute distress HEENT: Positive: PERRL, Normocephaly, Mucus Membranes Moist Neck: Positive: neck supple, trachea midline Cardiac: Positive: Reg Rate and Rhythm, S1/S2 Lungs: Positive: Decreased Breath Sounds, Wheezes Neuro: Positive: Grossly Intact Abdomen: Negative: Tender Skin: Negative: Rash Musculoskeletal: No Pain Extremities: Absent: edema Results 11/21/18 06:44 11/21/18 06:44 Cardiac Enzymes 11/21/18 Range/Units 06:44 CK-MB (CK-2) 1.7 (0.0-4.0) ng/mL Coagulation 11/21/18 Range/Units 06:44 PT 14.2 (12.2-14.9) Sec. INR 1.13 (0.87-1.13) APTT 30.5 (24.2-36.6) Sec. CBC 11/21/18 Range/Units 06:44 WBC 5.5 (4.5-11.0) K/mm3 RBC 5.04 H (3.65-5.03) M/mm3 Hgb 13.6 (11.8-15.2) gm/dl Hct 41.7 (35.5-45.6) % Plt Count 190 (140-440) K/mm3 Lymph # 1.1 L (1.2-5.4) K/mm3 [place] # 0.5 (0.0-0.8) K/mm3 Eos # 0.8 H (0.0-0.4) K/mm3 Baso # 0.0 (0.0-0.1) K/mm3 Comprehensive Metabolic Panel 11/21/18 Range/Units 06:44 Sodium 144 (137-145) mmol/L Potassium 4.6 (3.6-5.0) mmol/L Chloride 103.9 (98-107) mmol/L Carbon Dioxide 26 (22-30) mmol/L BUN 26 H (9-20) mg/dL Creatinine 1.6 H (0.8-1.5) mg/dL Glucose 91 (75-100) mg/dL Calcium 9.3 (8.4-10.2) mg/dL - Imaging and Cardiology Echo: report reviewed (07/07/2018 showed EF 40-45%, impaired relaxation, basal inferior, mid anteroseptal, mid inferoseptal and apical wall segments hypokinetic. 07/2017 showed EF 15-20%, pseudonormalization, intramural mass on lateral wall of LV measuring 3.58x2.36cm, LA mildly dilated, RV mildly dilated, RA mildly dilated, mass in RA attached to free wall measuring 2.59x2.43cm, mod MR, mod TR, RVSP 38mmHg. 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 ) EKG: report reviewed, image reviewed EKG interpretations - Telemetry EKG Rhythm: Sinus Rhythm - EKG Sinus rhythms and dysrhythmias: sinus rhythm Assessment and Plan Pt presented with c/o dyspnea and suspected upper respiratory infection. CXR with NAF. DDimer elevated - V/Q scan low prob for PE. He does not appear to be i n acutely decompensated HF. He denies any occurrence of chest pain. No indication for additional cardiac w/u at this time. Optimize BPs - resume home Imdur, consider increasing lisinopril if renal indices permit. The patient has been seen in conjunction with Dr. Siegel who agrees with the assessment and plan of care. - Patient Problems (1) Dyspnea Current Visit: Yes Status: Acute (2) Upper respiratory infection Current Visit: Yes Status: Suspected (3) Ischemic cardiomyopathy Current Visit: Yes Status: Chronic (4) Coronary artery disease Current Visit: Yes Status: Chronic Qualifiers: Coronary Disease-Associated Artery/Lesion type: unspecified vessel or lesion type [place] vs. transplanted heart: [place] heart Associated angina: without angina Qualified Code(s): I25.10 - Atherosclerotic heart disease of [place] coronary artery without angina pectoris (5) Stented coronary artery Current Visit: Yes Status: Chronic (6) HTN (hypertension) Current Visit: Yes Status: Chronic (7) Hyperlipidemia Current Visit: Yes Status: Chronic (8) CKD (chronic kidney disease) Current Visit: Yes Status: Chronic
[2018-11-21] MEDS: DUONEB *Not for PRN Use IH SCH ×2 (15:02→21:50)
[2018-11-21 15:59] LABS: Bilirubin,Urine NEG (Negative); Blood,Urine NEG (Negative); Color,Urine Straw (Yellow); Hyaline Casts,Urine 3 /LPF; RBC,Urine < 1.0 /HPF (0.0-6.0); Urobilinogen,Urine < 2.0 mg/dL (<2.0); WBC,Urine < 1.0 /HPF (0.0-6.0)
[2018-11-21] MEDS: IMDUR PO SCH (16:55)
[2018-11-21] MEDS: ZITHROMAX PO SCH (17:33)
[2018-11-21] MEDS: HEPARIN SUB-Q SCH (21:40)
[2018-11-22] MEDS: DUONEB *Not for PRN Use IH SCH ×3 (04:17→14:29)
[2018-11-22] MEDS: LASIX PO SCH (05:45)
[2018-11-22] MEDS ORDERED: LASIX PO SCH (10:00)
[2018-11-22] MEDS ORDERED: BABY ASPIRIN PO SCH (10:00)
[2018-11-22] MEDS: ZITHROMAX PO SCH (10:30)
[2018-11-22] MEDS: IMDUR PO SCH (10:30)
[2018-11-22] MEDS: EFFIENT PO SCH (10:30)
[2018-11-22] MEDS: HEPARIN SUB-Q SCH (10:31)
[2018-11-22] MEDS: COREG PO SCH (10:31)
[2018-11-22] MEDS: ZESTRIL PO SCH (10:31)
--- NOTE | 2018-11-22 10:40 | Progress Note ---
Assessment and Plan Currently stable cardiac status. Pt may discharge home from cardiology standpoint on present cardiac regimen. Recommend pt follow up with his primary cardiology team at [place] within 1-2 weeks. Pt verbalizes understanding. The patient has been seen in conjunction with Dr. Siegel who agrees with the assessment and plan of care. - Patient Problems (1) Dyspnea Current Visit: Yes Status: Acute (2) Upper respiratory infection Current Visit: Yes Status: Suspected (3) Ischemic cardiomyopathy Current Visit: Yes Status: Chronic (4) Coronary artery disease Current Visit: Yes Status: Chronic Qualifiers: Coronary Disease-Associated Artery/Lesion type: unspecified vessel or lesion type [place] vs. transplanted heart: [place] heart Associated angina: without angina Qualified Code(s): I25.10 - Atherosclerotic heart disease of [place] coronary artery without angina pectoris (5) Stented coronary artery Current Visit: Yes Status: Chronic (6) HTN (hypertension) Current Visit: Yes Status: Chronic (7) Hyperlipidemia Current Visit: Yes Status: Chronic (8) CKD (chronic kidney disease) Current Visit: Yes Status: Chronic Subjective Date of service: 11/22/18 Principal diagnosis: URI Interval history: pt resting in bed, states he is feeling better today, SOB improved, no wheezing. in SR on telemetry. Objective Last Vital Signs Temp 98.2 F 11/21/18 21:53 Pulse 91 H 11/22/18 10:31 Resp 12 11/22/18 08:00 BP 137/76 11/22/18 10:31 Pulse Ox 94 11/22/18 08:43 - Physical Examination General: No Apparent Distress HEENT: Positive: PERRL, Normocephaly, Mucus Membranes Moist Neck: Positive: neck supple, trachea midline Cardiac: Positive: Reg Rate and Rhythm, S1/S2 Lungs: Positive: clear to auscultation Neuro: Positive: Grossly Intact Abdomen: Negative: Tender Skin: Negative: Rash Musculoskeletal: No Pain Extremities: Absent: edema - Labs and Meds Comprehensive Metabolic Panel 11/22/18 Range/Units 04:50 Sodium 141 (137-145) mmol/L Potassium 4.4 (3.6-5.0) mmol/L Chloride 104.2 (98-107) mmol/L Carbon Dioxide 23 (22-30) mmol/L BUN 30 H (9-20) mg/dL Creatinine 1.5 (0.8-1.5) mg/dL Glucose 116 H (75-100) mg/dL Calcium 9.0 (8.4-10.2) mg/dL - Imaging and Cardiology EKG: report reviewed, image reviewed Echo: report reviewed (07/07/2018 showed EF 40-45%, impaired relaxation, basal inferior, mid anteroseptal, mid inferoseptal and apical wall segments hypokinetic. 07/2017 showed EF 15-20%, pseudonormalization, intramural mass on lateral wall of LV measuring 3.58x2.36cm, LA mildly dilated, RV mildly dilated, RA mildly dilated, mass in RA attached to free wall measuring 2.59x2.43cm, mod MR, mod TR, RVSP 38mmHg. 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 ) - Telemetry EKG Rhythm: Sinus Rhythm - EKG Sinus rhythms and dysrhythmias: sinus rhythm
[2018-11-22] MEDS ORDERED: AFLURIA QUAD 2019-2020 (3YR UP) IM ONE (12:00)
--- NOTE | 2018-11-22 12:59 | Discharge Summary ---
Providers - Providers Date of Admission: 11/21/18 09:16 Date of discharge: 11/22/18 Attending physician: RAJENDRA BRANDON 11/21/18 11:34 Consult to Physician [CONS] Routine Comment: Consulting Provider: STACIE SIERRA Physician Instructions: Reason For Exam: chest pain Primary care physician: BUSINESS CONSULTANT Hospitalization Condition: Stable Pertinent studies: CXR VQ scan Hospital course: 63-year-old man who is a poor historian with past medical history of CHF, intracardiac mass, hypertension, hyperlipidemia, COPD. He called EMS for shortness of breath and chest pain. He stated he was having symptoms of cold, nasal colonization and cough for last 2 days prior to admission. He then experienced chest pain and took NTG and after that he started to have wheezing and was feeling SOB. Patient called EMS and Was found to be hypertensive in the field. He was given nitroglycerin and an albuterol neb and brought to ER. His initial troponin in the ER was normal. Patient continued to have wheezing despite nebulizer breathing treatment. Medical service was consulted to admit the patient for further evaluation and management. His troponin trended, cardiology consulted and recommended medical mx. Patient was placed on zithromax and scheduled nebs- his symptom resolved. Patient was then discharged home in stable condition with outpt followup. Discharge diagnosis and Mx: Chest pain likely atypical - resolved, likely from URI - Placed On chest pain protocol to rule out ACS - had elevated d-dimer - low probability for PE on VQ scan - had cardiac cath on 06/26 with PCI to LAD - negative trop, consulted cardiology, recommended medical Mx - cont asp. statin Upper respiratory tract infection - placed the patient on Zithromax, and an nebs as needed Hypertension -On antihypertensives, adjusted as needed Chronic systolic heart failure with EF of 40-45% -appears compensated congestive x-ray -Last echo was in 06/2018, will repeat -On BB, ACE1 and lasix - no edema on clinical exam and on CXR CAD with h/o PCI - cont aspirin, effient, statin History of intramural mass per echo -Follow up outpt CKD stage 3 -Creatinine level about baseline DVT prophylaxis with heparin Disposition: DC/TX-06 HOME [facility] Time spent for discharge: 34 minutes Core Measure Documentation - Palliative Care Palliative Care/ Comfort Measures: Not Applicable - Core Measures Any of the following diagnoses?: none Exam - Physical Exam Narrative exam: GENERAL: well-developed and well-nourished -[place] male lying on bed appeared to be in no discomfort. HEENT: Normocephalic. Atraumatic. No conjunctival congestion or icterus. Patient has moist mucous membranes. NECK: Supple. Trachea midline. CHEST/LUNGS: Positive wheezes auscultated bilaterally, breathing nonlabored. No crackles or rhonchi. HEART/CARDIOVASCULAR: Regular in rate and rhythm. S1 and S2 positive. ABDOMEN: Abdomen is soft, nontender. Patient has normal bowel sounds. SKIN: There is no rash. Warm and dry. NEURO: No focal motor deficit. Follows command. MUSCULOSKELETAL: No joint effusion or tenderness. EXTRIMITY: No edema, no cyanosis or clubbing. PSYCH: Cooperative. - Constitutional Vitals: Temp Pulse Resp BP Pulse Ox 98.2 F 91 H 12 137/76 94 11/21/18 21:53 11/22/18 10:31 11/22/18 08:00 11/22/18 10:31 11/22/18 08:43 Plan Activity: advance as tolerated Weight Bearing Status: Weight Bear as Tolerated Diet: low fat, low salt Special Instructions: restrict fluid intake to (1.2L daily), record daily weights, record daily BP diary Follow up with: PRIMARY CAREMD [Primary Care Provider] - 7 Days THOM DHILLON MD [Staff Physician] - 7 Days Prescriptions: ALBUTEROL Inhaler (OR & NICU) [Proair] 2 puff IH QID PRN 30 Days #1 vial PRN Reason: Shortness Of Breath Azithromycin [Zithromax TAB] 500 mg PO QDAY #4 tablet
[2018-11-22 18:38] VITALS: BP 147/84
== END 2018-11-22 19:15 | disposition home health service (06) ==
LOC: ED 05:22 → 3A 09:16
PROVIDERS: ADMIT Internal Medicine; ATTEND Internal Medicine
DX: R07.89 Other chest pain (principal); J06.9 Acute upper respiratory infection, unspecified; I13.0 Hypertensive heart and chronic kidney disease with heart failure and stage 1 through stage 4 chronic kidney disease, or unspecified chronic kidney disease; I50.9 Heart failure, unspecified; N18.3 Chronic kidney disease, stage 3 (moderate); I25.10 Atherosclerotic heart disease of native coronary artery without angina pectoris; R06.00 Dyspnea, unspecified; J44.9 Chronic obstructive pulmonary disease, unspecified; E78.5 Hyperlipidemia, unspecified; Z85.46 Personal history of malignant neoplasm of prostate; Z90.49 Acquired absence of other specified parts of digestive tract; Z79.82 Long term (current) use of aspirin; Z95.1 Presence of aortocoronary bypass graft
CPT/HCPCS: 36415; 71045; 78582; 80048; 81001; 82140; 82550; 82553; 83735; 84484; 85025; 85379; 85610; 85730; 87116; 87400; 90686; 93005; 93010; 94640; 94644; 94760; 96372; 96374; 96375; 99284; A9270; A9540; A9558; G0378; J1644; J2930

== ENCOUNTER 2020-12-28 23:32 | Observation (INO) | payer OTHER ==
[2020-12-28] MEDS ORDERED: ALBUTEROL 2.5 MG/3 ML NEBU IH ONE (23:47)
[2020-12-28] MEDS ORDERED: IPRATROPIUM 0.02% NEBU 2.5 ML IH ONE (23:47)
[2020-12-29] MEDS ORDERED: methylPREDNISolone Sod Succinate 125 MG/2 ML INJ IV ONE (00:04)
[2020-12-29] MEDS ORDERED: MAGNESIUM SULFATE 2 GM/50 ML BAG IV ONE (00:05)
--- NOTE | 2020-12-29 00:10 | Emergency Department Report ---
HPI - General Chief Complaint: Dyspnea/Respdistress Time Seen by Provider: 12/28/20 23:50 - HPI HPI: Room 22 The patient is a 65-year-old male present with a chief complaint of shortness of breath. The patient states he has had a nonproductive cough for the past 3 weeks. Patient states yesterday he developed diffuse chest pain and shortness of breath. Patient states his chest pain is sharp in nature and intermittent. Patient denies pleurisy. Patient denies any recent flights or long car trips. Patient denies history of fever. The patient has been vaccinated against Covid receiving his second Pfizer vaccine 08/26/2020. ED Past Medical Hx - Past Medical History Hx Hypertension: Yes Hx Congestive Heart Failure: Yes Additional medical history: hx of b/l leg cellulitis, b/l chronic venous stasis ulcers - Surgical History Hx Coronary Stent: Yes (X1 2019) Hx Appendectomy: Yes Additional Surgical History: Left hand surgery, testicular surgery, circumcision - Family History Family history: no significant - Social History Smoking Status: Never Smoker Substance Use Type: None (Denies illicit drug use), Alcohol (Occasional) - Medications Home Medications: Home Medications Medication Instructions Recorded Confirmed Last Taken Type Furosemide [Lasix TAB] 40 mg PO QDAY 07/06/18 11/21/18 07/06/18 History Aspirin [Aspirin BABY CHEW TAB] 81 mg PO QDAY #30 tab.chew 07/09/18 11/21/18 Unknown Rx Nitroglycerin [Nitrostat] 0.4 mg SL .Q5MIN PRN #30 tablet 07/09/18 11/21/18 Unknown Rx Prasugrel [Effient] 10 mg PO QDAY #30 tablet 07/09/18 11/21/18 Unknown Rx Atorvastatin [Lipitor] 80 mg PO QHS 11/21/18 11/21/18 Unknown History ISOSORBIDE MONOnitrate [Imdur ER] 30 mg PO DAILY 11/21/18 11/21/18 Unknown History lisinopriL [Zestril TAB] 20 mg PO QDAY 11/21/18 11/21/18 Unknown History Albuterol Mdi (or & Nicu Only) 2 puff IH QID PRN 30 Days #1 vial 11/22/18 Unknown Rx [Proair] Azithromycin [Zithromax TAB] 500 mg PO QDAY #4 tablet 11/22/18 Unknown Rx amLODIPine 10 mg PO QDAY tablet 11/22/18 Unknown Rx ED Review of Systems ROS: Stated complaint: SHORTNESS OF BREATH Other details as noted in HPI Constitutional: denies: fever Eyes: denies: eye pain ENT: denies: throat pain Respiratory: cough, shortness of breath Cardiovascular: chest pain Endocrine: no symptoms reported Gastrointestinal: denies: abdominal pain Genitourinary: denies: dysuria Musculoskeletal: denies: back pain Neurological: denies: headache Physical Exam - Physical Exam Vital Signs: Vital Signs 12/28/20 12/28/20 12/28/20 23:38 23:43 23:45 Temperature 98.1 F Pulse Rate 74 75 Pulse Rate [ Bilateral Throughout] Respiratory 19 22 19 Rate Respiratory Rate [Bilateral Throughout] Blood Pressure 173/93 Blood Pressure 175/97 [Right] O2 Sat by Pulse 91 93 Oximetry 12/28/20 12/28/20 23:46 23:51 Temperature Pulse Rate Pulse Rate [ 70 Bilateral Throughout] Respiratory 20 Rate Respiratory 20 Rate [Bilateral Throughout] Blood Pressure Blood Pressure [Right] O2 Sat by Pulse 90 Oximetry Physical Exam: GENERAL: The patient is well-developed well-nourished male lying on stretcher not appearing to be in acute distress. [] HEENT: Normocephalic. Atraumatic. Extraocular motions are intact. Patient has moist mucous membranes. NECK: Supple. Trachea midline CHEST/LUNGS: Diffuse expiratory wheezing. There is no respiratory distress noted. HEART/CARDIOVASCULAR: Regular. There is no tachycardia. There is no gallop rub or murmur. ABDOMEN: Abdomen is soft, nontender. Patient has normal bowel sounds. There is no abdominal distention. SKIN: There is no rash. There is trace bilateral lower extremity pedal edema. There is no diaphoresis. NEURO: The patient is awake, alert, and oriented. The patient is cooperative. The patient has no focal neurologic deficits. The patient has normal speech. GCS 15 MUSCULOSKELETAL: There is no evidence of acute injury. ED Course Vital Signs 12/28/20 12/28/20 12/28/20 23:38 23:43 23:45 Temperature 98.1 F Pulse Rate 74 75 Pulse Rate [ Bilateral Throughout] Respiratory 19 22 19 Rate Respiratory Rate [Bilateral Throughout] Blood Pressure 173/93 Blood Pressure 175/97 [Right] O2 Sat by Pulse 91 93 Oximetry 12/28/20 12/28/20 23:46 23:51 Temperature Pulse Rate Pulse Rate [ 70 Bilateral Throughout] Respiratory 20 Rate Respiratory 20 Rate [Bilateral Throughout] Blood Pressure Blood Pressure [Right] O2 Sat by Pulse 90 Oximetry ED Medical Decision Making - Lab Data Result diagrams: 12/29/20 00:51 12/29/20 00:51 Laboratory Tests 12/29/20 12/29/20 12/29/20 00:51 00:51 00:51 WBC 5.9 RBC 5.07 H Hgb 13.6 Hct 42.6 MCV 84 MCH 27 L MCHC 32 RDW 17.1 H Plt Count 202 Lymph % (Auto) 25.7 [place] % (Auto) 9.1 H Eos % (Auto) 11.9 H Baso % (Auto) 0.5 Lymph # (Auto) 1.5 [place] # (Auto) 0.5 Eos # (Auto) 0.7 H Baso # (Auto) 0.0 Seg Neutrophils % 52.8 Seg Neutrophils # 3.1 PT 13.4 INR 0.92 Sodium 144 Potassium 4.9 Chloride 106.8 Carbon Dioxide 27 Anion Gap 15 BUN 26 H Creatinine 1.7 H Estimated GFR 49 BUN/Creatinine Ratio 15 Glucose 116 H Lactic Acid Calcium 9.6 Total Bilirubin 0.30 AST 18 ALT 18 Alkaline Phosphatase 112 Total Creatine Kinase 161 CK-MB (CK-2) 2.1 CK-MB (CK-2) Rel Index 1.3 Troponin T < 0.010 NT-Pro-B Natriuret Pep 170.6 Total Protein 7.7 Albumin 4.4 Albumin/Globulin Ratio 1.3 12/29/20 00:51 WBC RBC Hgb Hct MCV MCH MCHC RDW Plt Count Lymph % (Auto) [place] % (Auto) Eos % (Auto) Baso % (Auto) Lymph # (Auto) [place] # (Auto) Eos # (Auto) Baso # (Auto) Seg Neutrophils % Seg Neutrophils # PT INR Sodium Potassium Chloride Carbon Dioxide Anion Gap BUN Creatinine Estimated GFR BUN/Creatinine Ratio Glucose Lactic Acid 1.70 Calcium Total Bilirubin AST ALT Alkaline Phosphatase Total Creatine Kinase CK-MB (CK-2) CK-MB (CK-2) Rel Index Troponin T NT-Pro-B Natriuret Pep Total Protein Albumin Albumin/Globulin Ratio - EKG Data -: EKG Interpreted by Tn EKG shows normal: sinus rhythm Rate: normal - EKG Data When compared to previous EKG there are: no significant change Interpretation: unchanged when compared t (11/21/2018), nonspecific ST-T wave mikey - Radiology Data Radiology results: report reviewed (Chest x-ray #1, chest x-ray #2), image reviewed (Chest x-ray, chest x-ray #2) interpreted by me: Chest x-ray-no definite focal infiltrates, no pneumothorax Chest x-ray #2-no focal infiltrates, no pneumothorax [address] [address] XRay Report Signed Patient: LOTUS RUBALCAVA MR#: [id number] : 1955 Acct:[id number] Age/Sex: 65 / M ADM Date: 12/28/20 Loc: ED Attending Dr: Akhil capps Physician: LIZET MURILLO MD Date of Service: 12/29/20 Procedure(s): XR chest 1V ap Accession Number(s): [id number] cc: LIZET MURILLO MD Fluoro Time In Minutes: XR chest 1V ap INDICATION / CLINICAL INFORMATION: Shortness of breath, cough. COMPARISON: 11/21/2018 FINDINGS: SUPPORT DEVICES: None. HEART /PULMONARY VASCULATURE: No significant abnormality. LUNGS / PLEURA: Patient rotation somewhat limits evaluation. There is suggestion of increased opacity within the right lung apex. Remainder of the lungs are clear. No sizable pleural effusion. ADDITIONAL FINDINGS: No significant additional findings. IMPRESSION: Limited study with suggestion of increased opacity within the right lung apex. Recommend dedicated PA and lateral views of the chest for further evaluation. Signer Name: Terry Garcia MD Signed: 12/29/2020 12:30 AM Workstation Name: [id number] Transcribed By: JS Dictated By: TERRY GARCIA MD Electronically Authenticated By: TERRY GARCIA MD Signed Date/Time: 29 DD/ TD/TT: Print Cancel [address] [address] XRay Report Signed Patient: LOTUS RUBALCAVA MR#: [id number] : 1955 Acct:[id number] Age/Sex: 65 / M ADM Date: 12/28/20 Loc: ED Attending Dr: Ordering Physician: LIZET MURILLO MD Date of Service: 12/29/20 Procedure(s): XR chest routine 2V Accession Number(s): [id number] cc: LIZET MURILLO MD Fluoro Time In Minutes: XR chest routine 2V INDICATION / CLINICAL INFORMATION: chest pain, abnormal 1 view x-ray. COMPARISON: Earlier today FINDINGS: SUPPORT DEVICES: None. HEART /PULMONARY VASCULATURE: No significant abnormality. LUNGS / PLEURA: The lungs are clear. Suspected opacity on prior frontal view is no longer seen, likely artifactual. No pneumothorax. ADDITIONAL FINDINGS: No significant additional findings. IMPRESSION: 1. No acute findings. Signer Name: Terry Garcia MD Signed: 12/29/2020 2:36 AM Workstation Name: [id number] Transcribed By: JS Dictated By: TERRY GARCIA MD Electronically Authenticated By: TERRY GARCIA MD Signed Date/Time: 12/29/20 0236 - Differential Diagnosis Pneumonia, bronchitis, CHF, ACS, GERD Critical care attestation.: If time is entered above; I have spent that time in minutes in the direct care of this critically ill patient, excluding procedure time. ED Disposition Clinical Impression: Chest pain, Shortness of breath, Wheezing, Hypoxia Disposition: ADMITTED INPATIENT Is pt being admited?: Yes Does the pt Need Aspirin: No Condition: Fair Instructions: Nonspecific Chest Pain, Adult Referrals: [facility] [Primary Care Provider] - 3-5 Days Time of Disposition: 03:28 (Hospitalist notified (Dr. Ford)) Heart Score - HEART Score History: Moderately suspicious EKG: Non-specific Age: 45-65 Risk factors: > 3 risk factors or hx of atherosclerotic disease Troponin: < normal limit HEART Score: 5 - EKG Read Time Time EKG Completed: :22 EKG Read Time: :22
--- NOTE | 2020-12-29 00:35 | XRay Report ---
XR chest 1V ap INDICATION / CLINICAL INFORMATION: Shortness of breath, cough. COMPARISON: 11/21/2018 FINDINGS: SUPPORT DEVICES: None. HEART /PULMONARY VASCULATURE: No significant abnormality. LUNGS / PLEURA: Patient rotation somewhat limits evaluation. There is suggestion of increased opacity within the right lung apex. Remainder of the lungs are clear. No sizable pleural effusion. ADDITIONAL FINDINGS: No significant additional findings. IMPRESSION: Limited study with suggestion of increased opacity within the right lung apex. Recommend dedicated PA and lateral views of the chest for further evaluation. Signer Name: Oskar Garcia MD Signed: 12/29/2020 12:30 AM Workstation Name: [id number]
[2020-12-29 01:11] LABS: Basophils % (Auto) 0.5 % (0.0-1.8); Eosinophils # (Auto) 0.7 K/mm3 (0.0-0.4); Eosinophils % (Auto) 11.9 % (0.0-4.3); Hematocrit 42.6 % (35.5-45.6); Hemoglobin 13.6 gm/dl (11.8-15.2); Lymphocytes # (Auto) 1.5 K/mm3 (1.2-5.4); Lymphocytes % (Auto) 25.7 % (13.4-35.0); Mean Corpuscular HGB Conc 32 % (32-34); Mean Corpuscular Volume 84 fl (84-94); Monocytes # (Auto) 0.5 K/mm3 (0.0-0.8); Monocytes % (Auto) 9.1 % (0.0-7.3); Platelet Count 202 K/mm3 (140-440); Red Blood Count 5.07 M/mm3 (3.65-5.03); Red Cell Distribution Width 17.1 % (13.2-15.2)
[2020-12-29 01:29] LABS: Creatine Kinase MB 2.1 ng/mL (0.0-4.0)
[2020-12-29 01:30] LABS: Alanine Aminotransferase 18 units/L (7-56); Albumin 4.4 g/dL (3.9-5); BUN/Creatinine Ratio 15; Blood Urea Nitrogen 26 mg/dL (9-20); Calcium 9.6 mg/dL (8.4-10.2); Hemolysis Index 13
[2020-12-29 01:33] LABS: INR 0.92 (0.87-1.13)
--- NOTE | 2020-12-29 02:40 | XRay Report ---
XR chest routine 2V INDICATION / CLINICAL INFORMATION: chest pain, abnormal 1 view x-ray. COMPARISON: Earlier today FINDINGS: SUPPORT DEVICES: None. HEART /PULMONARY VASCULATURE: No significant abnormality. LUNGS / PLEURA: The lungs are clear. Suspected opacity on prior frontal view is no longer seen, likel y artifactual. No pneumothorax. ADDITIONAL FINDINGS: No significant additional findings. IMPRESSION: 1. No acute findings. Signer Name: Oskar Garcia MD Signed: 12/29/2020 2:36 AM Workstation Name: [id number]
[2020-12-29] MEDS ORDERED: CLOPIDOGREL 300 MG TAB PO ONE (03:17)
[2020-12-29] MEDS ORDERED: MORPHINE 4 MG/1 ML INJ IV PRN (08:12)
[2020-12-29] MEDS ORDERED: ALBUTEROL 2.5 MG/3 ML NEBU IH PRN (08:12)
[2020-12-29] MEDS ORDERED: ACETAMINOPHEN 325 MG TAB PO PRN (08:12)
[2020-12-29] MEDS ORDERED: oxyCODONE /ACETAMINOPHEN 5-325MG TAB PO PRN (08:12)
[2020-12-29] MEDS ORDERED: ONDANSETRON 4 MG/2 ML INJ IV PRN (08:12)
[2020-12-29] MEDS: amLODIPine 5 MG TAB PO SCH (11:11)
[2020-12-29] MEDS: ENOXAPARIN 30 MG/0.3 ML INJ SUB-Q SCH (11:11)
[2020-12-29] MEDS: DOXYCYCLINE 100 MG CAP PO SCH ×2 (11:11→22:11)
[2020-12-29] MEDS: carvediloL 25 MG TAB PO SCH ×2 (11:11→22:14)
--- NOTE | 2020-12-29 12:23 | History and Physical Report ---
History of Present Illness Date of examination: 12/29/20 Date of admission: 12/29/20 03:17 Chief complaint: Coughing History of present illness: Patient is a 65-year-old male past medical history of hypertension and hyperlipidemia who presented with 3 days of productive cough and worsening shortness of breath. The patient denies having any sick contacts, Covid ex posures, recent travel, fevers, chills, chest pain, or chest pressure. The patient was unable to describe the color of the sputum, because he admits to swallowing it. The patient has been vaccinated for COVID-19 with SplitSec[employer] x2. The patient denies any orthopnea or peripheral edema; however, the patient did endorse increasing fatigue over the previous 2-3 days. In the ED, the patient was found to be hypoxic to 89 and was placed on supplemental oxygen. The supplemental oxygen had been removed prior to hospitalist assessment. Chest x- ray was negative for interstitial infiltrates, pleural effusions, consolidations, or opacities. The patient is being managed for possible community-acquired pneumonia in the setting of acute hypoxic respiratory failure. Past History Past Medical History: hypertension, hyperlipidemia Past Surgical History: appendectomy, hernia repair Social history: single, Lives alone, full code Family history: CAD Medications and Allergies Allergies Allergy/AdvReac Type Severity Reaction Status Date / Time No Known Allergies Allergy Verified 12/28/20 23:38 Home Medications Medication Instructions Recorded Confirmed Last Taken Type Nitroglycerin [Nitrostat] 0.4 mg SL .Q5MIN PRN #30 tablet 07/09/18 12/29/20 Unknown Rx Atorvastatin [Lipitor] 80 mg PO QHS 11/21/18 12/29/20 Unknown History ISOSORBIDE MONOnitrate [Imdur ER] 30 mg PO DAILY 11/21/18 12/29/20 Unknown History amLODIPine 10 mg PO QDAY tablet 11/22/18 12/29/20 Unknown Rx carvediloL [Coreg] 25 mg PO BID 12/29/20 12/29/20 Unknown History Active Meds: Active Medications Acetaminophen (Acetaminophen 325 Mg Tab) 650 mg PO Q4H PRN PRN Reason: Pain MILD(1-3)/Fever >100.5/NUNN Albuterol (Albuterol 2.5 Mg/3 Ml Nebu) 2.5 mg IH Q4HRT PRN PRN Reason: Shortness Of Breath Amlodipine Besylate (Amlodipine 5 Mg Tab) 10 mg PO QDAY [facility] Last Admin: 12/29/20 11:11 Dose: 10 mg Documented by: Atorvastatin Calcium (Atorvastatin 40 Mg Tab) 80 mg PO QHS [facility] Carvedilol (Carvedilol 25 Mg Tab) 25 mg PO BID [facility] Last Admin: 12/29/20 11:11 Dose: 25 mg Documented by: Doxycycline Hyclate (Doxycycline 100 Mg Cap) 100 mg PO BID [facility]; Protocol Stop: 01/05/21 09:59 Last Admin: 12/29/20 11:11 Dose: 100 mg Documented by: Enoxaparin Sodium (Enoxaparin 30 Mg/0.3 Ml Inj) 30 mg SUB-Q QDAY [facility]; Protocol Last Admin: 12/29/20 11:11 Dose: 30 mg Documented by: Isosorbide Mononitrate (Isosorbide Mononitrate Er 30 Mg Tab) 30 mg PO DAILY [facility] Last Admin: 12/29/20 11:11 Dose: 30 mg Documented by: Morphine Sulfate (Morphine 4 Mg/1 Ml Inj) 2 mg IV Q4H PRN PRN Reason: Pain , Severe (7-10) Ondansetron HCl (Ondansetron 4 Mg/2 Ml Inj) 4 mg IV Q8H PRN PRN Reason: Nausea And Vomiting Oxycodone/Acetaminophen (Oxycodone /Acetaminophen 5-325mg Tab) 1 tab PO Q6H PRN PRN Reason: Pain, Moderate (4-6) Sodium Chloride (Sodium Chloride 0.9% 10 Ml Flush Syringe) 10 ml IV BID [facility] Last Admin: 12/29/20 11:11 Dose: 10 ml Documented by: Sodium Chloride (Sodium Chloride 0.9% 10 Ml Flush Syringe) 10 ml IV PRN PRN PRN Reason: LINE FLUSH Review of Systems All systems: negative Constitutional: fatigue Respiratory: cough with sputum, shortness of breath Exam - Constitutional Vitals: Temp Pulse Resp BP Pulse Ox 98.1 F 74 14 168/89 94 12/28/20 23:38 12/29/20 11:00 12/29/20 11:00 12/29/20 11:00 12/29/20 11:00 General appearance: Present: no acute distress, well-nourished - EENT Eyes: Present: PERRL, EOM intact ENT: hearing intact, clear oral mucosa, poor dentition - Neck Neck: Present: supple, normal ROM - Respiratory Respiratory effort: normal Respiratory: bilateral: diminished - Cardiovascular Rhythm: regular Heart Sounds: Present: S1 & S2 - Extremities Extremities: no ischemia, pulses intact, pulses symmetrical, No edema, normal temperature, normal color, Full ROM Peripheral Pulses: within normal limits - Abdominal General gastrointestinal: Present: soft, non-tender, non-distended, normal bowel sounds Male genitourinary: Present: deferred - Rectal Rectal Exam: deferred - Integumentary Integumentary: Present: clear, warm, dry - Musculoskeletal Musculoskeletal: strength equal bilaterally - Psychiatric Psychiatric: appropriate mood/affect, intact judgment & insight, memory intact, cooperative - Neurologic Neurologic: CNII-XII intact, moves all extremities - Allied Health Allied health notes reviewed: nursing HEART Score - HEART Score EKG: Non-specific Age: 45-65 Risk factors: > 3 risk factors or hx of atherosclerotic disease Troponin: Troponin T < 0.010 ng/mL (0.00-0.029) 12/29/20 00:51 Troponin: < normal limit Results - Labs CBC & Chem 7: 12/29/20 00:51 12/29/20 00:51 Labs: Laboratory Last Values WBC 5.9 K/mm3 (4.5-11.0) 12/29/20 00:51 RBC 5.07 M/mm3 (3.65-5.03) H 12/29/20 00:51 Hgb 13.6 gm/dl (11.8-15.2) 12/29/20 00:51 Hct 42.6 % (35.5-45.6) 12/29/20 00:51 MCV 84 fl (84-94) 12/29/20 00:51 MCH 27 pg (28-32) L 12/29/20 00:51 MCHC 32 % (32-34) 12/29/20 00:51 RDW 17.1 % (13.2-15.2) H 12/29/20 00:51 Plt Count 202 K/mm3 (140-440) 12/29/20 00:51 Lymph % (Auto) 25.7 % (13.4-35.0) 12/29/20 00:51 [place] % (Auto) 9.1 % (0.0-7.3) H 12/29/20 00:51 Eos % (Auto) 11.9 % (0.0-4.3) H 12/29/20 00:51 Baso % (Auto) 0.5 % (0.0-1.8) 12/29/20 00:51 Lymph # (Auto) 1.5 K/mm3 (1.2-5.4) 12/29/20 00:51 [place] # (Auto) 0.5 K/mm3 (0.0-0.8) 12/29/20 00:51 Eos # (Auto) 0.7 K/mm3 (0.0-0.4) H 12/29/20 00:51 Baso # (Auto) 0.0 K/mm3 (0.0-0.1) 12/29/20 00:51 Seg Neutrophils % 52.8 % (40.0-70.0) 12/29/20 00:51 Seg Neutrophils # 3.1 K/mm3 (1.8-7.7) 12/29/20 00:51 PT 13.4 Sec. (12.2-14.9) 12/29/20 00:51 INR 0.92 (0.87-1.13) 12/29/20 00:51 Sodium 144 mmol/L (137-145) 12/29/20 00:51 Potassium 4.9 mmol/L (3.6-5.0) 12/29/20 00:51 Chloride 106.8 mmol/L (98-107) 12/29/20 00:51 Carbon Dioxide 27 mmol/L (22-30) 12/29/20 00:51 Anion Gap 15 mmol/L 12/29/20 00:51 BUN 26 mg/dL (9-20) H 12/29/20 00:51 Creatinine 1.7 mg/dL (0.8-1.3) H 12/29/20 00:51 Estimated GFR 49 ml/min 12/29/20 00:51 BUN/Creatinine Ratio 15 % 12/29/20 00:51 Glucose 116 mg/dL (75-100) H 12/29/20 00:51 Lactic Acid 1.70 mmol/L (0.7-2.0) 12/29/20 00:51 Calcium 9.6 mg/dL (8.4-10.2) 12/29/20 00:51 Total Bilirubin 0.30 mg/dL (0.1-1.2) 12/29/20 00:51 AST 18 units/L (5-40) 12/29/20 00:51 ALT 18 units/L (7-56) 12/29/20 00:51 Alkaline Phosphatase 112 units/L (35-129) 12/29/20 00:51 Total Creatine Kinase 161 units/L (55-170) 12/29/20 00:51 CK-MB (CK-2) 2.1 ng/mL (0.0-4.0) 12/29/20 00:51 CK-MB (CK-2) Rel Index 1.3 (0-4) 12/29/20 00:51 Troponin T < 0.010 ng/mL (0.00-0.029) 12/29/20 00:51 NT-Pro-B Natriuret Pep 170.6 pg/mL (0-900) 12/29/20 00:51 Total Protein 7.7 g/dL (6.3-8.2) 12/29/20 00:51 Albumin 4.4 g/dL (3.9-5) 12/29/20 00:51 Albumin/Globulin Ratio 1.3 % 12/29/20 00:51 Microbiology: Microbiology 12/29/20 00:51 Peripheral/Venous Blood Culture - Preliminary Culture in Progress 12/29/20 00:46 Peripheral/Venous Blood Culture - Preliminary Culture in Progress Assessment and Plan Assessment and plan: Patient is a 65-year-old male past medical history of hypertension and hyperlipidemia who presented with 3 days of productive cough and worsening shortness of breath who is being treated for presumed community-acquired pneumonia complicated by acute hypoxic respiratory failure. #Community-acquired pneumonia #Acute hypoxic respiratory failure-resolved -Patient no longer on 2 L nasal cannula. -Currently afebrile, normal WBC, normal lactic acid, negative troponin x1, BNP within normal limits, and negative LFTs. -No clinical need to test for coronavirus PCR. -Blood cultures drawn in ED; pending results -Starting p.o. doxycycline 100 mg twice daily for total of 7-day course (ends 01/04/2021). -Continue to monitor #Hypertension #Hyperlipidemia -Restarting home meds: Coreg 25 mg twice daily, amlodipine 10 mg daily, Imdur 30 mg daily, and atorvastatin 80 mg daily -Continue to monitor #Discharge planning -Patient will likely discharge home tomorrow. No known barriers. #Advanced care planning -Disease education conducted, care plan discussed, diagnoses discussed, prognosis discussed, and patient acknowledges understanding with care plan -Time: +30 minutes Advance Directives: No VTE prophylaxis?: Chemical Plan of care discussed with patient/family: Yes
[2020-12-30 06:20] LABS: Basophils % (Auto) 0.2 % (0.0-1.8); Eosinophils % (Auto) 0.1 % (0.0-4.3); Hematocrit 41.8 % (35.5-45.6); Hemoglobin 12.8 gm/dl (11.8-15.2); Lymphocytes # (Auto) 1.3 K/mm3 (1.2-5.4); Lymphocytes % (Auto) 9.9 % (13.4-35.0); Mean Corpuscular HGB Conc 31 % (32-34); Mean Corpuscular Volume 85 fl (84-94); Monocytes # (Auto) 0.9 K/mm3 (0.0-0.8); Monocytes % (Auto) 6.9 % (0.0-7.3); Platelet Count 194 K/mm3 (140-440); Red Blood Count 4.94 M/mm3 (3.65-5.03); Red Cell Distribution Width 16.5 % (13.2-15.2)
[2020-12-30 06:30] LABS: BUN/Creatinine Ratio 21; Blood Urea Nitrogen 27 mg/dL (9-20); Calcium 9.2 mg/dL (8.4-10.2); Hemolysis Index 3
--- NOTE | 2020-12-30 08:54 | Electrocardiograph Report ---
[facility] Test Date: 2020-12-29 Test Time: 03:22:08 Pat Name: LOTUS RUBALCAVA Department: Room: A378 Gender: M [place] Attacher: DIANRM : 1955 Requested By: LIZET MURILLO Order Number: [id number] Reading MD: Gaurang Bautista Measurements Intervals [place] Rate: 68 P: 70 MS: 190 QRS: 61 QRSD: 91 T: 163 QT: 416 QTc: 442 Interpretive Statements Sinus rhythm Probable left atrial enlargement Probable anteroseptal infarct, old Abnormal T, consider ischemia, lateral leads No previous ECG available for comparison Electronically Signed On 12-30-2020 8:54:15 EST by Gaurang Bautista
[2020-12-30] MEDS: amLODIPine 5 MG TAB PO SCH (09:19)
[2020-12-30] MEDS: carvediloL 25 MG TAB PO SCH (09:19)
[2020-12-30] MEDS: DOXYCYCLINE 100 MG CAP PO SCH (09:19)
[2020-12-30] MEDS: ENOXAPARIN 30 MG/0.3 ML INJ SUB-Q SCH (09:19)
--- NOTE | 2020-12-30 10:25 | Discharge Summary ---
Providers - Providers Date of Admission: 12/29/20 03:17 Date of discharge: 12/30/20 Attending physician: JOHANNA MUÑIZ MD Primary care physician: [facility] Hospitalization Reason for admission: Community-acquired pneumonia; acute hypoxic respiratory failure Condition: Fair Pertinent studies: Reviewed. Procedures: None. Hospital course: Patient is a 65-year-old male past medical history of hypertension and hyperlipidemia who presented with 3 days of productive cough and worsening shortness of breath. The patient denies having any sick contacts, Covid exposures, recent travel, fevers, chills, chest pain, or chest pressure. In the ED, the patient was found to be hypoxic to 89 and was placed on supplemental oxygen. The supplemental oxygen had been removed prior to hospitalist assessment. Chest x-ray was negative for interstitial infiltrates, pleural effusions, consolidations, or opacities. The patient is being managed for possible community-acquired pneumonia in the setting of acute hypoxic respiratory failure. The patient was initiated on p.o. doxycycline 100 mg twice daily to be completed for a total 7-day course. The patient had no complaints overnight, and was safely discharged home. Disposition: 01 HOME / SELF CARE / HOMELESS Final Discharge Diagnosis (Prints w/discharge instructions): Community-acquired pneumonia, acute hypoxic respiratory failure, hypertension, hyperlipidemia Time spent for discharge: 45 min Core Measure Documentation - Palliative Care Palliative Care/ Comfort Measures: Not Applicable - Core Measures Any of the following diagnoses?: heart failure - VTE Discharge Requirements Deep Vein Thrombosis/Pulmonary Embolism Present on Admission: No Has pt received <5 days of overlap therapy or INR<2.0: No (Not indicated) Anticoagulant overlap therapy prescribed at discharge: No Contraindication No Overlap Therapy order at DC: Not Indicated - Acute TX Discharge Requirements Aspirin at discharge: Yes JERROD/ARB for LVSD if EF <40%: No Reason for no JERROD/ARB: Medical contraindication (Not indicated) Beta donald at discharge: Yes Statin for LDL = or >100 mg/dl on DC: Yes - Heart Failure Discharge Requirements JERROD/ARB for LVSD if EF <40%: Not Applicable Reason for no JERROD/ARB: Medical contraindication (Not indicated) Beta donald at discharge: Yes - Stroke Discharge Requirements Statin for LDL = or >70 mg/dl on DC: Yes Anticoag for atrial fib/atrial flutter: Not Applicable Reason for no anticoag for AF/F on DC: Not Indicated Antithrombotic for ischemic stroke: No Reason for no antithrombotic on DC: Not Indicated Exam - Constitutional Vitals: Temp Pulse Resp BP Pulse Ox 97.9 F 62 18 146/68 93 12/30/20 06:26 12/30/20 06:26 12/30/20 06:26 12/30/20 09:19 12/30/20 06:26 General appearance: Present: no acute distress, well-nourished - EENT Eyes: Present: PERRL, EOM intact ENT: hearing intact, clear oral mucosa, poor dentition - Neck Neck: Present: supple, normal ROM - Respiratory Respiratory effort: normal Respiratory: bilateral: CTA - Cardiovascular Rhythm: regular Heart Sounds: Present: S1 & S2 - Extremities Extremities: no ischemia, pulses intact, pulses symmetrical, No edema, normal temperature, normal color, Full ROM Peripheral Pulses: within normal limits - Abdominal General gastrointestinal: Present: soft, non-tender, non-distended, normal bowel sounds Male genitourinary: Present: deferred - Rectal Rectal Exam: deferred - Integumentary Integumentary: Present: clear, warm, dry - Musculoskeletal Musculoskeletal: strength equal bilaterally - Psychiatric Psychiatric: appropriate mood/affect, intact judgment & insight, memory intact, cooperative - Neurologic Neurologic: CNII-XII intact, moves all extremities - Allied Health Allied health notes reviewed: nursing Plan Activity: no restrictions Diet: low salt Care Plan Goals: Safe to discharge home. Assessment: The patient was admitted for community acquired pneumonia complicated by acute hypoxic respiratory failure. The patient was started on oral doxycycline and monitored overnight. The patient denies any compliants. Patient will be discharging with antibiotics to complete a 7-day course. Follow up with: [facility] [Primary Care Provider] - 14 Days Prescriptions: DOXYCYCLINE Hyclate [Vibramycin CAP] 100 mg PO BID #11 tab
[2020-12-30] MEDS ORDERED: PNEUMOCOCCAL 23 Valent 0.5 ML VIAL IM ONE (12:00)
[2020-12-30 13:16] VITALS: BP 117/76
== END 2020-12-30 15:25 | disposition home or self-care (01) ==
LOC: ED 23:32 → 4A 12-29 03:17 → 3A 12-29 08:23
PROVIDERS: ADMIT Hospitalist; ATTEND Student in an Organized Health Care Education/Training Program
DX: J96.01 Acute respiratory failure with hypoxia (principal); J18.9 Pneumonia, unspecified organism; I10 Essential (primary) hypertension; E78.5 Hyperlipidemia, unspecified; Z90.49 Acquired absence of other specified parts of digestive tract; Z79.899 Other long term (current) drug therapy; Z98.890 Other specified postprocedural states; Z23 Encounter for immunization; Z71.85 Encounter for immunization safety counseling
CPT/HCPCS: 36415; 71045; 71046; 80048; 80053; 82140; 82550; 82553; 83735; 83880; 84100; 84484; 85025; 85610; 87040; 90471; 90732; 93005; 94640; 94644; 96365; 96372; 96375; 99285; G0378; J1650; J2930; J3475

== ENCOUNTER 2021-04-11 03:56 | Emergency (ER) | payer OTHER ==
--- NOTE | 2021-04-11 04:24 | Emergency Department Report ---
ED Shortness of Breath HPI - General Stated Complaint: HIGH BP/SOB Time Seen by Provider: 04/11/21 04:12 Source: patient, EMS, old records reviewed Mode of arrival: Stretcher Limitations: No Limitations - History of Present Illness Initial Comments: CC: "blood pressure" HPI: This is a 65 yo male with hx of HTN, CAD, congestive heart failure, chronic kidney disease who presents with elevated blood pressure. Patient missed all of his medication doses. He has run out of medication. He does have a primary care physician. He denies chest pain. He had transient shortness of breath. He has bilateral lower extremity swelling. April 2018, echocardiogram revealed ejection fraction 40 to 45% with abnormal diastolic filling. MD Complaint: shortness of breath -: Gradual Severity: mild Consistency: now resolved Improves With: oxygen Worsens With: nothing Known History Of: congestive heart failure Associated Symptoms: other (Lower extremity swelling) - Related Data Home Medications Medication Instructions Recorded Confirmed Last Taken Atorvastatin [Lipitor] 80 mg PO QHS 11/21/18 12/29/20 Unknown ISOSORBIDE MONOnitrate [Imdur ER] 30 mg PO DAILY 11/21/18 12/29/20 Unknown carvediloL [Coreg] 25 mg PO BID 12/29/20 12/29/20 Unknown Previous Rx's Medication Instructions Recorded Last Taken Type Nitroglycerin [Nitrostat] 0.4 mg SL .Q5MIN PRN #30 tablet 07/09/18 Unknown Rx amLODIPine 10 mg PO QDAY tablet 11/22/18 Unknown Rx DOXYCYCLINE Hyclate [Vibramycin 100 mg PO BID #11 tab 12/30/20 Unknown Rx CAP] Atorvastatin Calcium [Lipitor] 80 mg PO DAILY #30 04/11/21 Unknown Rx ISOSORBIDE MONOnitrate [Imdur ER] 30 mg PO DAILY #30 tab.er.24h 04/11/21 Unknown Rx amLODIPine 10 mg PO DAILY #30 tab 04/11/21 Unknown Rx carvediloL [Coreg] 25 mg PO BID #60 tablet 04/11/21 Unknown Rx Allergies Allergy/AdvReac Type Severity Reaction Status Date / Time No Known Allergies Allergy Verified 12/28/20 23:38 ED Review of Systems ROS: Stated complaint: HIGH BP/SOB Other details as noted in HPI Comment: All other systems reviewed and negative Constitutional: denies: chills, fever, malaise Respiratory: shortness of breath. denies: wheezing Cardiovascular: denies: chest pain Neurological: denies: headache ED Past Medical Hx - Past Medical History Previous Medical History?: Yes Hx Hypertension: Yes Hx Congestive Heart Failure: Yes Hx Diabetes: No Hx Asthma: No Hx COPD: No Additional medical history: hx of b/l leg cellulitis, b/l chronic venous stasis ulcers - Surgical History Past Surgical History?: Yes Hx Coronary Stent: Yes Hx Appendectomy: Yes Additional Surgical History: Left hand surgery, testicular surgery, circumcision - Family History Family history: hypertension - Social History Smoking Status: Never Smoker Substance Use Type: None - Medications Home Medications: Home Medications Medication Instructions Recorded Confirmed Last Taken Type Nitroglycerin [Nitrostat] 0.4 mg SL .Q5MIN PRN #30 tablet 07/09/18 12/29/20 Unknown Rx Atorvastatin [Lipitor] 80 mg PO QHS 11/21/18 12/29/20 Unknown History ISOSORBIDE MONOnitrate [Imdur ER] 30 mg PO DAILY 11/21/18 12/29/20 Unknown His tory amLODIPine 10 mg PO QDAY tablet 11/22/18 12/29/20 Unknown Rx carvediloL [Coreg] 25 mg PO BID 12/29/20 12/29/20 Unknown History DOXYCYCLINE Hyclate [Vibramycin 100 mg PO BID #11 tab 12/30/20 Unknown Rx CAP] Atorvastatin Calcium [Lipitor] 80 mg PO DAILY #30 04/11/21 Unknown Rx ISOSORBIDE MONOnitrate [Imdur ER] 30 mg PO DAILY #30 tab.er.24h 04/11/21 Unknown Rx amLODIPine 10 mg PO DAILY #30 tab 04/11/21 Unknown Rx carvediloL [Coreg] 25 mg PO BID #60 tablet 04/11/21 Unknown Rx ED Physical Exam - General Limitations: No Limitations General appearance: alert, in no apparent distress, other (Pleasant smiling no acute distress) - Head Head exam: Present: atraumatic, normocephalic - Eye Eye exam: Present: normal appearance - ENT ENT exam: Present: mucous membranes moist - Neck Neck exam: Present: normal inspection, full ROM - Respiratory Respiratory exam: Present: normal lung sounds bilaterally. Absent: respiratory distress, wheezes, rales, rhonchi - Cardiovascular Cardiovascular Exam: Present: regular rate, normal rhythm, normal heart sounds. Absent: systolic murmur, diastolic murmur, rubs, gallop - GI/Abdominal GI/Abdominal exam: Present: soft, normal bowel sounds. Absent: distended, tend erness, guarding, rebound - Rectal Rectal exam: Present: deferred - Extremities Exam Extremities exam: Present: pedal edema - Neurological Exam Neurological exam: Present: alert, oriented X3 - Psychiatric Psychiatric exam: Present: normal affect, normal mood - Skin Skin exam: Present: warm, dry, intact, normal color. Absent: rash ED Course Vital Signs 04/11/21 04/11/21 04/11/21 04:36 04:39 05:02 Temperature 97.8 F 98.7 F Pulse Rate 74 64 Respiratory 20 20 16 Rate Blood Pressure 205/118 169/98 [Left] O2 Sat by Pulse 95 95 95 Oximetry - Reevaluation(s) Reevaluation #1: 04/11/21 05:03 Vital Signs - 8 hr 04/11/21 04/11/21 04/11/21 04:36 04:39 05:02 Temperature 97.8 F 98.7 F Pulse Rate 74 64 Respiratory 20 20 16 Rate Blood Pressure 205/118 169/98 [Left] O2 Sat by Pulse 95 95 95 Oximetry ED Medical Decision Making - Lab Data Result diagrams: 04/11/21 04:22 04/11/21 04:22 - EKG Data -: EKG Interpreted by Me - EKG Data Interpretation: nonspecific ST-T wave mikey 04/11/21 04:33 EKG obtained 0422 EKG interpreted by me Rate 70 bpm normal sinus rhythm normal axis prolonged QTC no ST elevation nonspecific T wave pattern - Radiology Data Radiology results: report reviewed Patient Name: LOTUS RUBALCAVA Gender: Male Date of : 1955 Referring Provider: CAROLINE AWAD Organization: [facility] Accession Number: [id number] Requested Date: April 11, 2021 04:19 Report Status: Final Requested Procedure: 1 Procedure Description: XR chest 1V ap Modality: XR Findings Reporting MD: Matt Medina Dictation Time: April 11, 2021 03:44 Business Development Manager: Not available Motor Vehicle Lecturer Date: CHEST 1 VIEW INDICATION: shortness of breath. COMPARISON: 12/29/2020 FINDINGS: Support devices: None. Heart: Normal. Lungs/Pleura: No acute pulmonary or pleural findings. IMPRESSION: 1. No acute findings. Signer Name: Matt Medina MD Signed: 04/11/2021 3:44 AM Workstation Name: [id number] - Medical Decision Making 1. Hypertensive urgency: No evidence of pulmonary edema. EKG without ST elevation or ischemic changes. Blood pressure 169/98 in emergency department without treatment. 2. Congestive heart failure exacerbation due to medication noncompliance. I have prescribed the medications listed from most recent hospitalization. CBC within normal limits chemistry revealed GFR greater than 60. BMP within normal limits. Troponin negative. Critical care attestation.: If time is entered above; I have spent that time in minutes in the direct care of this critically ill patient, excluding procedure time. ED Disposition Clinical Impression: Hypertensive urgency, Acute exacerbation of congestive heart failure Disposition: HOME / SELF CARE / HOMELESS Is pt being admited?: No Does the pt Need Aspirin: No Condition: Stable Instructions: Heart Failure, Self Care, [id number], Hypertension, Adult, [id number] Prescriptions: amLODIPine 10 mg PO DAILY #30 tab carvediloL [Coreg] 25 mg PO BID #60 tablet ISOSORBIDE MONOnitrate [Imdur ER] 30 mg PO DAILY #30 tab.er.24h Atorvastatin Calcium [Lipitor] 80 mg PO DAILY #30 Referrals: JANIS HECTOR MD [Staff Physician] - 3-5 Days QUAN DEL ROSARIO MD [Staff Physician] - 3-5 Days
[2021-04-11 04:27] LABS: Bilirubin,Urine NEG (Negative); Blood,Urine SM (Negative); Color,Urine Straw (Yellow); RBC,Urine < 1.0 /HPF (0.0-6.0); Urobilinogen,Urine < 2.0 mg/dL (<2.0)
[2021-04-11 04:28] LABS: Protein,Urine >500 mg/dL (Negative)
[2021-04-11 04:29] LABS: WBC,Urine < 1.0 /HPF (0.0-6.0)
[2021-04-11 04:41] LABS: Basophils % (Auto) 0.6 % (0.0-1.8); Eosinophils # (Auto) 0.6 K/mm3 (0.0-0.4); Eosinophils % (Auto) 11.9 % (0.0-4.3); Hematocrit 44.2 % (35.5-45.6); Hemoglobin 13.9 gm/dl (11.8-15.2); Lymphocytes # (Auto) 1.4 K/mm3 (1.2-5.4); Lymphocytes % (Auto) 27.7 % (13.4-35.0); Mean Corpuscular HGB Conc 32 % (32-34); Mean Corpuscular Volume 84 fl (84-94); Monocytes # (Auto) 0.5 K/mm3 (0.0-0.8); Monocytes % (Auto) 10.6 % (0.0-7.3); Platelet Count 152 K/mm3 (140-440); Red Blood Count 5.24 M/mm3 (3.65-5.03); Red Cell Distribution Width 16.5 % (13.2-15.2)
--- NOTE | 2021-04-11 04:48 | XRay Report ---
CHEST 1 VIEW INDICATION: shortness of breath. COMPARISON: 12/29/2020 FINDINGS: Support devices: None. Heart: Normal. Lungs/Pleura: No acute pulmonary or pleural findings. IMPRESSION: 1. No acute findings. Signer Name: Matt Medina MD Signed: 04/11/2021 4:44 AM Workstation Name: [id number]
[2021-04-11 05:03] VITALS: BP 169/98
[2021-04-11 05:06] LABS: Alanine Aminotransferase 13 units/L (7-56); Albumin 4.2 g/dL (3.9-5); BUN/Creatinine Ratio 13; Blood Urea Nitrogen 18 mg/dL (9-20); Calcium 8.7 mg/dL (8.4-10.2); Hemolysis Index 5
--- NOTE | 2021-04-11 17:39 | Electrocardiograph Report ---
[facility] Test Date: 2021-04-11 Test Time: 04:22:36 Pat Name: LOTUS RUBALCAVA Department: Room: Gender: M Radio Performer: SILVIA : 1955 Requested By: CAROLINE AWAD Order Number: [id number] Reading MD: Kelley Negron Measurements Intervals [place] Rate: 71 P: 74 TX: 203 QRS: 54 QRSD: 87 T: 106 QT: 463 QTc: 499 Interpretive Statements Sinus rhythm Ventricular premature complex Probable left atrial enlargement Anterior infarct, old Nonspecific T abnormalities, lateral leads Compared to ECG 12/29/2020 03:22:08 PVCs now evident Electronically Signed On 04-11-2021 17:38:55 EST by Kelley Negron
== END 2021-04-11 06:03 | disposition home or self-care (01) ==
LOC: ED 03:56
DX: I16.0 Hypertensive urgency (principal); I11.0 Hypertensive heart disease with heart failure; I50.9 Heart failure, unspecified; Z90.49 Acquired absence of other specified parts of digestive tract; Z79.899 Other long term (current) drug therapy
CPT/HCPCS: 36415; 71045; 80053; 81001; 83880; 84484; 85025; 93005; 93010; 99284